=== PATIENT | female | born 1955 | race Caucasian/White ===

== ENCOUNTER 2019-08-26 07:09 | Emergency (ER) | payer BC, SELFPAY ==
[2019-08-26] VITALS (7 sets, daily range): BP systolic 104–152; BP diastolic 52–79; PULSE 63–85; RESP 16–22; TEMP 36.6; O2SAT 96–99
--- NOTE | ~2019-08-26 | XR_ITS ---
EXAMINATION: XR shoulder LT min 2V DATE: 08/26/2019 08:06 INDICATION: Left shoulder pain. Fall. TECHNIQUE: 5 views of left shoulder were obtained. COMPARISON: None. FINDINGS: Bone alignment is normal. No fracture. Glenohumeral joint is normal. There is mild acromioc lavicular joint osteoarthritis. IMPRESSION: 1. Mild left acromioclavicular joint osteoarthritis. Reviewed, dictated and finalized at location A. AND YARD SUPERVISOR
--- NOTE | ~2019-08-26 | CT_ITS ---
EXAMINATION: CT cervical spine wo con DATE: 08/26/2019 07:53 INDICATION: Neck pain. Head injury. TECHNIQUE: Computed tomography (CT) of the cervical spine was performed without intravenous contrast. Automated exposure control and iterative reconstruction technique were employed. The dose-length pro duct was 418.78 mGy-cm. COMPARISON: None FINDINGS: There is 10 degrees dextroscoliosis of cervicothoracic spine. There is 2 mm anterolisthesis of C4 on C5, 2 mm retrolisthesis of C5 on C6 and C6 on C7, and 2 mm anterolisthesis of C7 on T1. [place] tebral body heights are normal. There is severely decreased disc height at C5-C6 and C6-C7. The follo wing disc levels are specifically discussed: C2-C3 through C4-C5: There is no uncovertebral joint osteoarthritis. There is no facet joint osteoart hritis. There is no neural foraminal stenosis. There is no central canal stenosis. C5-C6: There is severe bilateral uncovertebral joint osteoarthritis. There is mild bilateral facet nahum int osteoarthritis. There is mild right and moderate left neural foraminal stenosis. There is mild ce ntral canal stenosis. C6-C7: There is severe bilateral uncovertebral joint osteoarthritis. There is mild bilateral facet nahum int osteoarthritis. There is mild right and moderate left neural foraminal stenosis. There is mild ce ntral canal stenosis. C7-T1: There is no uncovertebral joint osteoarthritis. There is severe bilateral facet joint osteoart hritis. There is mild right and moderate left neural foraminal stenosis. There is no central canal st enosis. IMPRESSION: 1. No fracture. 2. Severe cervical spondylosis. Reviewed, dictated and finalized at location A. TER HELPER
--- NOTE | ~2019-08-26 | CT_ITS ---
EXAMINATION: CT brain wo con DATE: 08/26/2019 07:54 INDICATION: Head injury. Neck pain. TECHNIQUE: Computed tomography (CT) of the head was performed without intravenous contrast. The mA wa s adjusted according to patient size. Iterative reconstruction technique was employed. The dose-lengt h product was 605.33 mGy-cm. COMPARISON: Head CT 09/01/2007 FINDINGS: There is no intracranial hemorrhage, acute infarction, or abnormal intracranial mass lesion . The ventricles are normal in size. The orbits are normal. The mastoid air cells are normal. The par anasal sinuses are clear. IMPRESSION: 1. Normal brain. Reviewed, dictated and finalized at location A. ICIAN SURGEON IMPRESSION: 1. Normal brain.
--- NOTE | 2019-08-26 07:28 | ECG_ITS ---
Measurements Intervals [place] Rate: 82 P: 7 OK: 181 QRS: -19 QRSD: 76 T: -7 QT: 353 QTc: 413 Interpretive Statements SINUS RHYTHM LOW QRS VOLTAGE IN PRECORDIAL LEADS POOR R WAVE PROGRESSION, CONSIDER ANTERIOR INFARCT BORDERLINE ST-T WAVE ABNORMALITY- INFERIOR LEADS BASELINE ARTIFACT- I, II, III, AVL, AVF, V4-V6 ABNORMAL ECG Electronically Signed On 08-26-2019 10:02:39 HARBORMASTER by Rene Rojas D.O.
--- NOTE | 2019-08-26 07:30 | ED.SYNCOPE ---
HPI - Syncope General Chief Complaint: Weakness Stated Complaint: Syncope Time Seen by Provider: 08/26/19 07:19 Source: patient Mode of arrival: ambulatory Limitations: no limitations History of Present Illness HPI narrative: Patient is a 64-year-old female who presents to the emergency department with complaint of syncopal episode. Patient reports onset of diarrhea at 4 AM yesterday. Patient has had multiple episodes of diarrhea. She has felt nauseous and vomited one time. Patient has had 2 syncopal episodes while sitting on the toilet having diarrhea. First episode occurred at 11 PM last night. The second episode occurred at 530 this morning. Patient reports waking up on the bathroom floor after having been sitting on the toilet having diarrhea. Patient has not been drinking much fluids since she developed the diarrhea. Patient did not feel she could navigate well enough to get to the kitchen to get herself something to drink in her kitchen is currently being remodeled and has no light fixture currently. Patient's was at work until 630 this morning and there was no one else at home to assist her. Patient reports injury to her left face, neck, and left shoulder during her second syncopal episode. She is complaining of pain along the left cheekbone, neck, and left shoulder. Patient has had some cramping with her diarrhea but is denying any significant abdominal pain. Patient denies any upper respiratory symptoms or fever. complaint: loss of consciousness Onset (ago): hour(s) Witnessed: No Context: other (On toilet with diarrhea) Injuries sustained associated with event: neck, face and LUE (shoulder) Related Data Allergies Allergy/AdvReac Type Severity Reaction Status Date / Time lisinopril Allergy Unknown Verified 03/08/14 02:38 metformin Allergy Unknown Verified 02/07/18 16:29 Review of Systems Review of Systems: All systems reviewed & are unremarkable except as noted in HPI and below Constitutional: Constitutional: Denies fever(s) and Reports weakness ENT: Denies nasal congestion and Denies sore throat Respiratory: Respiratory: Denies cough and Denies dyspnea Gastrointestinal: Gastrointestinal: Reports abdominal pain, Reports diarrhea, Reports nausea and Reports vomiting Neurologic: Reports dizziness, Reports syncope and Reports headache(s) (mild) [facility] Past Medical History Medical History (Updated 08/26/19 @ 11:31 by Ymuiko Collins MD) Allergic rhinitis Diabetes mellitus Hyperlipidemia Hypertension Surgical History Surgical History (Updated 08/26/19 @ 07:46 by Yumiko Collins MD) History of section History of cholecystectomy History of D&C History of hysterectomy Family History Family History (Updated 04/23/13 @ 15:35 by DOCTOR UNKNOWN) Other Asthma Cerebrovascular accident Depression Diabetes mellitus Family history of alcoholism Family history of anemia Family history of arthritis Family history of cardiovascular disease Family history of cataracts Family history of glaucoma Family history of hearing loss Family history of mental disorder Family history of migraine headaches Family history of obesity Family history of osteoporosis Hypertension Social History Social History Smoking status: Never smoker Alcohol intake: current Gender identity (if verbalized by the patient): Female Exam Const: General: cooperative, no acute distress and alert Nutritional Appearance: obese Orientation/consciousness: patient oriented x3 Limitations: no limitations HENMT: Head images: 1. Minor contusion Mouth: Yes lip normal and Yes moist mucous membranes Resp: Effort & Inspection: normal respiratory effort Auscultation: clear to auscultation bilaterally Cardio: Rate: regular rate Rhythm: regular rhythm GI: GI Palp: Yes Soft to palpation and No Tenderness to palpation present (GI) Auscultation: normal bowel sounds Back/Spine/Pe
[2019-08-26 07:45] LABS: Basophils Absolute Auto 0.1 K/mm3 (0.0-0.1); Basophils Percent Auto 0.4 % (0.2-1.2); Eosinophils Absolute Auto 0.3 K/mm3 (0-0.3); Eosinophils Percent Auto 1.7 % (0-4.4); Hematocrit 46.8 % (37.0-47.0); Hemoglobin 15.1 g/dL (12.0-15.0); Immature Granulocyte Absolute 0.03 K/mm3 (0.00-0.031); Immature Granulocyte Percent A 0.2 % (0-0.5); Lymphocytes Absolute Auto 2.93 K/mm3 (0.9-3.2); Lymphocytes Percent Auto 18.8 % (18.3-44.2); Mean Corpuscular HGB Conc 32.3 g/dl (32-36); Mean Platelet Volume 9.2 fl (7.4-10.4); Monocytes Absolute Auto 0.9 K/mm3 (0.1-0.6); Monocytes Percent Auto 5.5 % (2.6-8.5); Neutrophils Absolute Auto 11.5 K/mm3 (1.3-6.7); Neutrophils Percent Auto 73.4 % (45.5-73.1); Platelet Count Result 298 k/mm3 (150-375); Red Cell Distribution Width 13.5 % (11.5-14.5); White Blood Count 15.6 K/mm3 (4.5-10.0)
[2019-08-26 08:03] LABS: Alanine Aminotransferase 20 U/L (4-35); Albumin Level 4.3 g/dL (3.5-5.1); Alkaline Phosphatase 61 U/L (38-126); Aspartate Amino Transferase 23 U/L (14-36); Bilirubin,Total 0.6 mg/dL (0.2-1.3); Blood Urea Nitrogen 15 mg/dL (7-17); Calcium 9.4 mg/dL (8.4-10.2); Carbon Dioxide 20 mmol/L (22-30); Chloride 103 mmol/L (98-107); Estimated CRCL calculation 71 ml/min; Estimated Glomerular Filt Rate > 60; Glucose 189 mg/dL (65-105); Phosphorus 2.5 mg/dL (2.5-4.5); Potassium 4.1 mmol/L (3.4-5.0); Sodium 135 mmol/L (137-145)
[2019-08-26 08:08] LABS: Glucose Point of Care 169 (65-105)
[2019-08-26 08:08] LABS: Magnesium 2.1 mg/dL (1.6-2.3)
[2019-08-26] MEDS: LACTATED RINGERS 1,000 ML 999 ML IV CONT (08:09)
--- NOTE | 2019-08-26 08:45 | PC.NURSE ---
Lab unreceived urine due to not enough specimen. EDP notified.
[2019-08-26 09:59] LABS: Add Urine Microscopic? NO; Appearance Urine Clear (Clear); Bilirubin Urine Negative (Negative); Blood Urine Negative (Negative); Color Urine Yellow (Yellow); Glucose Urine UA Negative (Negative); Ketones Urine Negative (Negative); Leukocyte Esterase Ur Negative LEU/UL (Negative); Nitrate Urine Negative (Negative); Protein Urine Negative (Negative); Specific Grav Ur 1.016 (1.001-1.035); Urobilinogen Urine Negative mg/dL (<2.0)
== END 2019-08-26 11:56 | disposition home or self-care (01) ==
PROVIDERS: Emergency Provider Emergency Medicine; PCP Family Medicine
DX: K52.9 Noninfective gastroenteritis and colitis, unspecified (principal); E86.0 Dehydration; R55 Syncope and collapse; E11.9 Type 2 diabetes mellitus without complications; E78.5 Hyperlipidemia, unspecified; I10 Essential (primary) hypertension; M47.812 Spondylosis without myelopathy or radiculopathy, cervical region; M19.012 Primary osteoarthritis, left shoulder
CPT/HCPCS: 36415; 70450; 72125; 73030; 80053; 81003; 82948; 83735; 84100; 85025; 87804; 93005; 96360; 99284; J7120; L0140

== ENCOUNTER 2020-06-29 16:27 | Outpatient (CLI) | payer BC, SELFPAY ==
--- NOTE | ~2020-06-29 | MM_ITS ---
EXAMINATION: MM screening [facility] BI w gricelda HISTORY: Screening TECHNIQUE: Craniocaudal and mediolateral oblique 3-D tomosynthesis images were obtained and synthetic 2-D images were generated. CAD analysis was submitted and interpreted. COMPARISON: Comparison to multiple prior studies sequentially, with oldest reviewed study dated 07/2011. BREAST PARENCHYMAL COMPOSITION: There are scattered areas of fibroglandular density. FINDINGS: There is no evidence of suspicious mass, calcification, or architectural distortion to sugg est malignancy in either breast. There has been no suspicious interval change. IMPRESSION: 1. No mammographic evidence of malignancy. 2. Recommend routine screening mammography in one year. BI-RADS Category 1: Negative Reviewed, dictated and finalized at location A. ING AND REFRIGERATION INSPECTOR
== END 2020-06-29 16:28 | disposition home or self-care (01) ==
LOC: ANHIMG 16:29
PROVIDERS: PCP Family Medicine; Visit Provider Family Medicine
DX: Z12.31 Encounter for screening mammogram for malignant neoplasm of breast (principal)
CPT/HCPCS: 77063; 77067

== ENCOUNTER → 2020-10-11 10:17 | Outpatient (CLI) | payer BC, SELFPAY ==
--- NOTE | ~2020-10-11 | XR_ITS ---
XR knee RT min 4V 10/11/2020 10:43 Indication: Right knee pain Procedure: 5 views right knee Comparison: 07/31/2008 Findings: There is mild osteoarthritis of the right knee. No fracture or traumatic malalignment. No s ignificant joint effusion. There is a lucency at the medial femoral condyle,, consistent with small o steochondral defect. Impression: 1: Mild osteoarthritis of the right knee with small osteochondral defect medial femoral condyle. Reviewed, dictated and finalized at location A. Impression: 1: Mild osteoarthritis of the right knee with small osteochondral defect medial femoral condyle.
== END ==
PROVIDERS: PCP Physician Assistant; Visit Provider Physician Assistant
DX: M17.11 Unilateral primary osteoarthritis, right knee (principal)
CPT/HCPCS: 73564

== ENCOUNTER 2021-01-23 10:46 | Emergency (ER) | payer BC, SELFPAY ==
--- NOTE | ~2021-01-23 | CT_ITS ---
EXAMINATION: CT brain wo con INDICATION: Diplopia and headache COMPARISON: 08/26/2019 TECHNIQUE: Standard unenhanced head CT. The dose-length product (DLP) was 605.33 mGy-cm. The mA was a djusted according to patient size. Iterative reconstruction technique was employed. FINDINGS: There is no acute intraparenchymal hemorrhage. No evidence of mass lesion. No evidence of a cute infarction. There is mild periventricular and subcortical hypodensity probably related to small vessel ischemic disease. There is mild prominence of the sulci and ventricles related to cerebral atr ophy. Intracranial calcified cerebral atherosclerosis is noted. There are no extra-axial collections. There is no mass effect or midline shift. The orbits and soft tissues are unremarkable. The visualiz ed sinuses and mastoid air cells are well aerated. IMPRESSION: 1. No acute intracranial abnormality. 2. Age related findings. Reviewed, dictated and finalized at location A.
[2021-01-23 11:29] VITALS: BP 143/70; PULSE 71; RESP 18; TEMP 36.9; O2SAT 99
--- NOTE | 2021-01-23 12:17 | ED.GENADULT ---
HPI - General Adult General Chief complaint: Headache Stated complaint: Head Ache/Double Vision Time Seen by Provider: 01/23/21 12:11 Source: patient Mode of arrival: ambulatory Limitations: no limitations History of Present Illness HPI narrative: Patient is here for evaluation of headache. Headache has been happening for the last 2 weeks. She states it wakes her at night. Currently though the pain is primarily in the left eye left jehovah's witness radiate to her left jaw. She denies any fever. But she has had some double vision when using her binocular vision only. She states that she has not had a headache in 20 years, but she did have a stroke 7 to 10 years ago. She was concerned that it was caused by her glasses, she did have those adjusted with no relief. Onset (ago): week(s) Location: head Radiation: other (left jaw) Severity: moderate Quality: sharp Pain Consistency: constant Relieving factors: none Exacerbating factors: other (light) Associated symptoms: denies other symptoms Treatments prior to arrival: NSAID Related Data Home Medications Medication Instructions Recorded Confirmed B-complex with vitamin C 1 tablet PO DAILY 04/19/20 10/26/20 aspirin 81 mg tablet,delayed 81 mg PO DAILY 04/19/20 10/26/20 release cyanocobalamin (vitamin B-12) 1,000 mcg PO DAILY 04/19/20 10/26/20 1,000 mcg capsule irbesartan 300 mg tablet 300 mg PO DAILY 04/19/20 10/26/20 levothyroxine 125 mcg capsule 125 mcg PO DAILY 04/19/20 10/26/20 linaclotide 72 mcg capsule 72 mcg PO QAM 04/19/20 10/26/20 dulaglutide 1.5 mg/0.5 mL 1.5 mg SUBCUT WEEKLY 10/11/20 10/26/20 subcutaneous pen injector insulin lispro 100 unit/mL 5.5 unit SUBCUT QHS 10/18/20 10/26/20 subcutaneous half-unit pen Allergies Allergy/AdvReac Type Severity Reaction Status Date / Time metformin Allergy Unknown Rash Verified 01/23/21 12:03 poison carlitos extract Allergy Unknown Rash Verified 01/23/21 12:03 Review of Systems Review of Systems: All systems reviewed & are unremarkable except as noted in HPI and below PMFSH Past Medical History Medical History Allergic rhinitis Allergic rhinitis BMI 40.0-44.9, adult Constipation Diabetes mellitus Gastroparesis Hyperlipidemia Hyperlipidemia with target LDL less than 100 Hypertension Hypothyroidism (acquired) Neuropathy Pelvic floor dysfunction Primary hypertension Situational mixed anxiety and depressive disorder Type 2 diabetes mellitus with diabetic neuropathy, with long-term current use of insulin Surgical History Surgical History History of section (~1977) History of cholecystectomy (~1991) History of D&C (~1976) History of hysterectomy History of tubal ligation (~1979) Family History Family History Other Asthma Cerebrovascular accident Depression Diabetes mellitus Family history of alcoholism Family history of anemia Family history of arthritis Family history of cardiovascular disease Family history of cataracts Family history of glaucoma Family history of hearing loss Family history of mental disorder Family history of migraine headaches Family history of obesity Family history of osteoporosis Hypertension Social History Social History Smoking status: Never smoker Second hand tobacco smoke exposure: Yes Alcohol intake: current Substance use: never Substance use type: does not use Additional living arrangements comments: Significant other. Gender identity (if verbalized by the patient): Female Exam Const: General: healthy appearing, no acute distress and alert Orientation/consciousness: patient oriented x3 HENMT: Head: normal to inspection and Temporal artery tenderness present (no cording) left temporal Face and sinus: sinuses non
[2021-01-23 13:02] LABS: Basophils Absolute Auto 0.1 K/mm3 (0.0-0.1); Basophils Percent Auto 0.8 % (0.2-1.2); Eosinophils Absolute Auto 0.8 K/mm3 (0-0.3); Eosinophils Percent Auto 7.2 % (0-4.4); Hemoglobin 13.5 g/dL (12.0-15.0); Immature Granulocyte Absolute 0.02 K/mm3 (0.00-0.031); Immature Granulocyte Percent A 0.2 % (0-0.5); Lymphocytes Absolute Auto 3.64 K/mm3 (0.9-3.2); Lymphocytes Percent Auto 31.8 % (18.3-44.2); Mean Corpuscular HGB Conc 32.1 g/dl (32-36); Mean Corpuscular Hemoglobin 30.3 pg (26-34); Mean Corpuscular Volume 94.2 fl (80-100); Mean Platelet Volume 9.2 fl (7.4-10.4); Monocytes Absolute Auto 0.8 K/mm3 (0.1-0.6); Neutrophils Absolute Auto 6.1 K/mm3 (1.3-6.7); Platelet Count Result 264 k/mm3 (150-375); Red Blood Count 4.46 M/mm3 (4.2-5.4); White Blood Count 11.5 K/mm3 (4.5-10.0)
--- NOTE | 2021-01-23 15:05 | ECG_ITS ---
Measurements Intervals [place] Rate: 67 P: 7 DC: 185 QRS: -18 QRSD: 99 T: 1 QT: 407 QTc: 431 Interpretive Statements SINUS RHYTHM LOW QRS VOLTAGE IN PRECORDIAL LEADS POOR R WAVE PROGRESSION, ANTERIOR LEADS BORDERLINE T WAVE ABNORMALITY- INFERIOR LEADS BORDERLINE ECG Electronically Signed On 01-23-2021 17:35:10 CDT by Rene Rojas D.O.
[2021-01-23 15:32] VITALS: BP 125/64; PULSE 67; RESP 18; O2SAT 98
[2021-01-23 16:25] VITALS: BP 125/64; PULSE 72; RESP 16; O2SAT 96
--- NOTE | 2021-01-23 16:25 | ED.GENADULT ---
HPI - General Adult General Chief complaint: Headache Stated complaint: Head Ache/Double Vision Time Seen by Provider: 01/23/21 12:11 Source: patient Mode of arrival: ambulatory Limitations: no limitations History of Present Illness HPI narrative: Pt is here for evaluation of left sided headache and vision changes. She is concerned for stroke as she had one ~ 10 yrs ago. She states she has not had a headache in many yrs. She is having double vision when she looks to the left. The pain in her left quaker radiates to her jaw. Denies fever. Location: head Quality: sharp Relieving factors: none Exacerbating factors: other (light) Associated symptoms: denies other symptoms Treatments prior to arrival: NSAID Related Data Home Medications Medication Instructions Recorded Confirmed B-complex with vitamin C 1 tablet PO DAILY 04/19/20 10/26/20 aspirin 81 mg tablet,delayed 81 mg PO DAILY 04/19/20 10/26/20 release cyanocobalamin (vitamin B-12) 1,000 mcg PO DAILY 04/19/20 10/26/20 1,000 mcg capsule irbesartan 300 mg tablet 300 mg PO DAILY 04/19/20 10/26/20 levothyroxine 125 mcg capsule 125 mcg PO DAILY 04/19/20 10/26/20 linaclotide 72 mcg capsule 72 mcg PO QAM 04/19/20 10/26/20 dulaglutide 1.5 mg/0.5 mL 1.5 mg SUBCUT WEEKLY 10/11/20 10/26/20 subcutaneous pen injector insulin lispro 100 unit/mL 5.5 unit SUBCUT QHS 10/18/20 10/26/20 subcutaneous half-unit pen Allergies Allergy/AdvReac Type Severity Reaction Status Date / Time metformin Allergy Unknown Rash Verified 01/23/21 12:03 poison carlitos extract Allergy Unknown Rash Verified 01/23/21 12:03 Review of Systems Review of Systems: All systems reviewed & are unremarkable except as noted in HPI and below PMFSH Past Medical History Medical History Allergic rhinitis Allergic rhinitis BMI 40.0-44.9, adult Constipation Diabetes mellitus Gastroparesis Hyperlipidemia Hyperlipidemia with target LDL less than 100 Hypertension Hypothyroidism (acquired) Neuropathy Pelvic floor dysfunction Primary hypertension Situational mixed anxiety and depressive disorder Type 2 diabetes mellitus with diabetic neuropathy, with long-term current use of insulin Surgical History Surgical History History of section (~1977) History of cholecystectomy (~1991) History of D&C (~1976) History of hysterectomy History of tubal ligation (~1979) Family History Family History Other Asthma Cerebrovascular accident Depression Diabetes mellitus Family history of alcoholism Family history of anemia Family history of arthritis Family history of cardiovascular disease Family history of cataracts Family history of glaucoma Family history of hearing loss Family history of mental disorder Family history of migraine headaches Family history of obesity Family history of osteoporosis Hypertension Social History Social History Smoking status: Never smoker Second hand tobacco smoke exposure: Yes Alcohol intake: current Substance use: never Substance use type: does not use Additional living arrangements comments: Significant other. Gender identity (if verbalized by the patient): Female Exam Const: General: healthy appearing, no acute distress and alert Orientation/consciousness: patient oriented x3 HENMT: Head: normal to inspection and Temporal artery tenderness present (no cording.) left temporal Ears: TM's normal bilaterally Face and sinus: normal facial exam and sinuses nontender Eyes: Visual Padgett: normal visual padgett by confrontation Conjunctivae: conjunctivae normal Pupils: Equal, round and reactive pupils present EOM: EOMs intact bilaterally Resp: Effort & Inspection: normal respiratory effort Auscultation: clear to auscul
== END 2021-01-23 16:26 | disposition home or self-care (01) ==
PROVIDERS: Physician Assistant; Emergency Provider Emergency Medicine; PCP Physician Assistant
DX: R51.9 Headache, unspecified (principal); H53.2 Diplopia; I10 Essential (primary) hypertension; E78.5 Hyperlipidemia, unspecified; E11.9 Type 2 diabetes mellitus without complications; E03.9 Hypothyroidism, unspecified; Z79.82 Long term (current) use of aspirin; Z79.4 Long term (current) use of insulin
CPT/HCPCS: 36415; 70450; 85025; 86140; 93005; 99284

== ENCOUNTER 2021-01-24 11:04 | Outpatient (CLI) | payer BC, SELFPAY ==
--- NOTE | ~2021-01-24 | MR_ITS ---
EXAMINATION: MR brain/brain stem wo/w con DATE: 01/24/2021 13:08 INDICATION: Diplopia. TECHNIQUE: Magnetic resonance imaging (MRI) of the brain and brainstem was performed without and with 18 mL MultiHance intravenous contrast. Sequences included sagittal and axial T1-weighted FSE, axial diffusion-weighted FS EPI, axial T2*-weighted GRE, axial T2-weighted FLAIR Propeller, and axial T2-we ighted Propeller. Postcontrast sequences included axial, sagittal, and coronal T1-weighted FSE. Appar ent diffusion coefficient (ADC) maps were created. COMPARISON: Head CT 01/23/2021 FINDINGS: There are scattered areas of nonspecific increased T2-weighted signal intensity in the cere bral white matter, which is within normal limits for the patient's age. There is no intracranial hemo rrhage, acute infarction, or abnormal intracranial mass lesion. The ventricles are normal in size. Th e paranasal sinuses are clear. The orbits are normal. The mastoid air cells are normal. IMPRESSION: 1. Normal aging brain. Reviewed, dictated and finalized at location A. IMPRESSION: 1. Normal aging brain.
[2021-01-24 12:38] LABS: Estimated Glomerular Filt Rate > 60
== END 2021-01-24 11:05 | disposition home or self-care (01) ==
PROVIDERS: PCP Physician Assistant; Visit Provider Family Medicine
DX: H53.2 Diplopia (principal); Z86.73 Personal history of transient ischemic attack (TIA), and cerebral infarction without residual deficits
CPT/HCPCS: 70553; A9577

== ENCOUNTER → 2021-03-02 16:29 | Outpatient (CLI) | payer BC, SELFPAY ==
--- NOTE | ~2021-03-02 | XR_ITS ---
EXAMINATION: HAND-KAY ARTHRITIS 3+VIEWS DATE: 03/02/2021 16:54 INDICATION: Polyarthralgia. Rheumatoid arthritis. TECHNIQUE: Posteroanterior, lateral, and oblique views of the left and of the right hands as well as a ballcatchers view of both hands were obtained. COMPARISON: None. FINDINGS: Bone alignment is normal. Polyarticular osteoarthritis, moderate severity at the right pisotriquetral and bilateral first carpometacarpal, and second and third distal interphalangeal joints and mild at the bilateral first metacarpophalangeal and remaining interphalangeal joints. There is erosion at the distal margin of the left pisiform. Soft tissues are unremarkable. IMPRESSION: 1. Typical distribution of relatively symmetric mild to moderate polyarticular osteoarthritis of both hands 2. Single erosion at the distal margin of the left pisiform which could be related to reported rheuma toid arthritis or other inflammatory or crystalline arthropathy. Reviewed, dictated and finalized at location A. IMPRESSION: 1. Typical distribution of relatively symmetric mild to moderate polyarticular osteoarthritis of both hands 2. Single erosion at the distal margin of the left pisiform which could be rela dolores to reported rheumatoid arthritis or other inflammatory or crystalline arthr opathy.
--- NOTE | ~2021-03-02 | XR_ITS ---
EXAMINATION: XR foot LT min 3V, XR foot RT min 3V DATE: 03/02/2021 16:54 INDICATION: Unspecified joint pain in the bilateral feet. TECHNIQUE: 1. Dorsoplantar, two oblique and lateral views of the left foot were obtained. 2. Dorsoplantar, two oblique and lateral views of the right foot were obtained. COMPARISON: None. FINDINGS: Bone alignment is normal at the bilateral feet. No fractures. Mild osteoarthritis at the bilateral fi rst metatarsophalangeal and naviculocuneiform joints as well as multiple bilateral tarsometatarsal an d interphalangeal joints. Subarticular lucency with thin sclerotic margins at the proximal articular surface of the right medial cuneiform without evident underlying cortical disruption and favor degene rative subchondral cyst over a chronic erosion. Small bilateral plantar calcaneal spurs. Soft tissues are unremarkable. IMPRESSION: 1. Mild polyarticular osteoarthritis at the bilateral mid and forefeet. Reviewed, dictated and finalized at location A. IMPRESSION: 1. Mild polyarticular osteoarthritis at the bilateral mid and forefeet.
== END ==
PROVIDERS: PCP Family Medicine
DX: M25.50 Pain in unspecified joint (principal); M89.49 Other hypertrophic osteoarthropathy, multiple sites
CPT/HCPCS: 73130; 73630

== ENCOUNTER → 2021-03-20 13:13 | Outpatient (CLI) | payer BC, SELFPAY ==
--- NOTE | ~2021-03-20 | MR_ITS ---
EXAMINATION: MR knee RT wo con DATE: 03/20/2021 13:58 INDICATION: Generalized right knee pain and swelling with difficulty walking TECHNIQUE: Magnetic resonance imaging (MRI) of the right knee was performed without intravenous contr ast. Sequences included coronal PD-weighted FSE, coronal PD-weighted FS FSE, sagittal T2-weighted FS E, sagittal PD-weighted FS FSE and axial PD weighted fat saturated FSE. COMPARISON: Right knee radiographs dated 10/11/2020 FINDINGS: Medial compartment: The medial meniscus appears small. There is increased signal which contacts the superior articular bangura rface at the posterior horn and body of the meniscus consistent with tear which is of indeterminate m orphology. Extensive deep chondral ulceration with underlying cortical irregularity and subarticular cystic changes extending from the anterior to the posterior weightbearing medial femoral condyle. Add itional partial thickness cartilage loss and oblique full-thickness chondral fissure with underlying subarticular edema at the anterior aspect of the medial tibial plateau. Lateral compartment: Lateral meniscus is normal. Articular cartilage is normal. Patellofemoral compartment: Deep chondral ulceration with cortical irregularity and subarticular cystic changes at the lateral pa tellar facet and apical ridge. Shallow chondral ulceration with subtle underlying cortical irregulari ty at the caudal aspect of the medial trochlea. Ligaments and tendons: Anterior and posterior cruciate ligaments are normal. The medial collateral ligament is normal. There is mild thickening and increased signal at the proximal fibular collateral ligament without surround ing edema consistent with mild scarring related to chronic sprain. There are bands of magic angle art ifact extending across the normal patellar tendon. Quadriceps tendon is normal. The visualized medial and lateral hamstring tendons as well as the iliotibial band are normal. Fluid: Small right knee joint effusion. There is a suprapatellar plical band. No loose osteochondral bodies identified. Osseous/other: Bone alignment is normal. No fracture or pathologic marrow replacing process. IMPRESSION: 1. Tear of indeterminate morphology at the body and posterior horn of the medial meniscus. 2. Moderate medial and mild to moderate patellofemoral osteoarthritis with large regions of high-grad e chondromalacia in both compartments. 3. Small right knee joint effusion. Reviewed, dictated and finalized at location A. IMPRESSION: 1. Tear of indeterminate morphology at the body and posterior horn of the media l meniscus. 2. Moderate medial and mild to moderate patellofemoral osteoarthritis with larg e regions of high-grade chondromalacia in both compartments. 3. Small right knee joint effusion.
== END ==
PROVIDERS: PCP Family Medicine; Visit Provider Orthopaedic Surgery
DX: S83.241A Other tear of medial meniscus, current injury, right knee, initial encounter (principal); X58.XXXA Exposure to other specified factors, initial encounter
CPT/HCPCS: 73721

== ENCOUNTER 2021-05-03 11:33 | Outpatient (CLI) | payer BC, SELFPAY ==
[2021-05-03 12:37] LABS: Anion Gap 7 mmol/L (8-16); Blood Urea Nitrogen 13 mg/dL (7-17); Calcium 9.6 mg/dL (8.4-10.2); Carbon Dioxide 28 mmol/L (22-30); Chloride 105 mmol/L (98-107); Estimated Glomerular Filt Rate > 60; Glucose 235 mg/dL (65-110); Potassium 4.2 mmol/L (3.4-5.0); Sodium 140 mmol/L (137-145)
== END 2021-05-03 11:34 | disposition home or self-care (01) ==
LOC: ANHSURGERY 11:36
PROVIDERS: Anesthesiology; PCP Family Medicine; Visit Provider Orthopaedic Surgery
DX: Z01.818 Encounter for other preprocedural examination (principal); E11.9 Type 2 diabetes mellitus without complications
CPT/HCPCS: 36415; 80048

== ENCOUNTER 2021-05-05 00:36 | Day surgery (SDC) | payer BC, SELFPAY ==
[2021-04-27 12:56] VITALS: BMI 41.3
--- NOTE | 2021-05-04 08:32 | WPDANESEPPF ---
Anes - Initial Pre Proc Eval Procedure: Operation Date: 05/05/21 10:30 Proposed Procedures p Right Knee Arthroscopy, Partial Medial Meniscectomy - Benny Harrell MD <Nathaniel Milian MD - Last Filed: 05/05/21 12:02> Date/Time: 05/04/21 08:32 <Nathaniel Milian MD - Last Filed: 05/05/21 12:02> Surgeon: Benny Harrell MD <Nathaniel Milian MD - Last Filed: 05/05/21 12:02> Pre Op Diagnosis: Tear Rt Medial Meniscus <Nathaniel Milian MD - Last Filed: 05/05/21 12:02> Patient Data Age: 66 Gender: F Height: 1.52 m Weight: 96 kg <Nathaniel Milian MD - Last Filed: 05/05/21 12:02> Allergies Allergy/AdvReac Type Severity Reaction Status Date / Time metformin Allergy Unknown Rash Verified 05/05/21 09:05 poison carlitos extract Allergy Unknown Rash Verified 05/05/21 09:05 <Nathaniel Milian MD - Last Filed: 05/05/21 12:02> Home Medications Medication Instructions Recorded Confirmed Type aspirin 81 mg tablet,delayed 81 mg PO DAILY 04/19/20 05/05/21 History release cyanocobalamin (vitamin B-12) 1,000 mcg PO DAILY 04/19/20 05/05/21 History 1,000 mcg capsule montelukast 10 mg tablet 10 mg PO DAILY #90 tablet 04/19/20 05/05/21 Rx insulin lispro 100 unit/mL 5.5 unit SUBCUT QHS 10/18/20 05/05/21 History subcutaneous half-unit pen levothyroxine 112 mcg capsule 112 mcg PO QAM 01/25/21 05/05/21 History linaclotide 145 mcg capsule 145 mcg PO QAM 01/25/21 05/05/21 History vitamin B complex 1 tablet PO DAILY 01/25/21 05/05/21 History cholecalciferol (vitamin D3) 1 mcg PO WEEKLY 04/27/21 05/05/21 History gabapentin See Rx Instructions .ROUTE .COMPLEX 04/27/21 05/05/21 History prasterone (dhea) [DHEA] 50 mg PO DAILY 04/27/21 05/05/21 History semaglutide [Ozempic] 0.5 mg SUBCUT WEEKLY 04/27/21 05/05/21 History simvastatin 20 mg PO QAM 04/27/21 05/05/21 History irbesartan 300 mg tablet 300 mg PO QAM #90 tablet 05/04/21 05/05/21 Rx <Nathaniel Milian MD - Last Filed: 05/05/21 12:02> Patient hx anesthesia problems: none <Ricardo Bolden MD - Last Filed: 05/05/21 10:05> Family hx anesthesia problems: none <Ricardo Bolden MD - Last Filed: 05/05/21 10:05> Results Review: All pre-operative results and documents have been reviewed as part of the pre-operative evaluation. <Nathaniel Milian MD - Last Filed: 05/05/21 12:02> [facility] Past Medical History Medical History: Medical History Allergic rhinitis Allergic rhinitis BMI 40.0-44.9, adult Constipation Diabetes mellitus Gastroparesis H/O: CVA (cerebrovascular accident) Hyperlipidemia Hyperlipidemia with target LDL less than 100 Hypertension Hypothyroidism (acquired) Neuropathy Pelvic floor dysfunction Primary hypertension Situational mixed anxiety and depressive disorder Type 2 diabetes mellitus with diabetic neuropathy, with long-term current use of insulin <Nathaniel Milian MD - Last Filed: 05/05/21 12:02> Surgical History Surgical History: Surgical History History of section (~1977) History of cholecystectomy (~1991) History of D&C (~1976) History of hysterectomy History of tubal ligation (~1979) <Nathaniel Milian MD - Last Filed: 05/05/21 12:02> Family History Family History: Family History Other Asthma Cerebrovascular accident Depression Diabetes mellitus Family history of alcoholism Family history of anemia Family history of arthritis Family history of cardiovascular disease Family history of cataracts Family history of glaucoma Family history of hearing loss Family history of mental disorder Family history of migraine headaches Family history of obesity Family history of osteoporosis Hypertension <Nathaniel Milian MD - Last Filed: 05/05/21 12:02> Social His
[2021-05-05] VITALS (9 sets, daily range): BP systolic 126–146; BP diastolic 50–67; PULSE 54–72; RESP 13–22; TEMP 36.2–36.6; O2SAT 94–100
--- NOTE | 2021-05-05 07:44 | WPDHPUPDATE1 ---
History and Physical Update Update Date/Time: 05/05/21 07:44 History and Physical has been reviewed, including an updated exam of the patient. There are NO changes in the patient's condition. Risks, benefits, and alternatives have been discussed and questions answered. Patient agrees to proceed with procedure.
[2021-05-05] MEDS: LACTATED RINGERS 1,000 ML 30 ML IV CONT (09:25)
[2021-05-05] MEDS: ACETAMINOPHEN 500 MG TABLET 1000 MG PO (09:27)
[2021-05-05] MEDS: KETOROLAC 15 MG/ML VIAL (*BKC) IV PUSH (09:28)
[2021-05-05 09:33] LABS: Glucose Point of Care 137 mg/dl (65-105)
[2021-05-05] MEDS: ceFAZolin 2 GM/D5W 50 ML 2 GM/50 ML BAG IVPB (10:33)
[2021-05-05] MEDS: BUPIVACAINE HCL 0.5% PF 30 ML VIAL INFILTRATE (11:03)
[2021-05-05 11:42] LABS: Glucose Point of Care 152 mg/dl (65-105)
--- NOTE | 2021-05-05 16:30 | P.OP_ITS ---
Procedure Note - Detailed Date of Procedure 05/05/21 Pre-op Diagnosis Tear right Medial Meniscus Post-op Diagnosis same Procedure Performed Arthroscopic partial medial meniscectomy Surgeon Benny Harrell MD Anesthesia general Findings The medial compartment showed moderate early degenerative changes with grade 4 chondromalacia on the medial femur with delamination of the peripheral area. Mild grade 4 areas on the medial tibia. Extensive complex posterior horn medial meniscus tearing requiring subtotal meniscectomy. Mild synovitis in the knee noted. The radiofrequency probe was used to stabilize the remaining posterior meniscal cartilages well as the delaminating articular cartilage medially. The patellofemoral joint showed mild chondromalacia on the lateral compartment appeared fairly normal. Description of Procedure The patient was identified and the surgical site confirmed and signed in the preoperative holding area. Antibiotics were started per protocol. She was brought to the operative room and transferred to the OR table. A general anesthetic was administered. Supine position with the operative lower extremity position in the leg crockett after placement of a well padded tourniquet. The leg support was lowered and the contralateral limb was supported with a soft bolster. The knee was prepped and draped in the usual sterile fashion. A time- out was performed. The portal sites were marked and infiltrated with 0.5% Marcaine 20 mL. The limb was exsanguinated and the tourniquet inflated to 300 mL Hg. Standard inferolateral and inferomedial portals were established. Inflow was obtained with the saline pump. The camera was introduced. Diagnostic inspection of the joint was accomplished. The meniscus was debrided with the arthroscopic shaver and punches until stable. The radiofrequency probe was also used for further d?bridement. Gentle chondroplasty was performed on the medial femur primarily. The lateral compartment appeared benign. Minimal patellofemoral changes. The ACL was intact. The arthroscopic instruments were removed. The tourniquet released and wounds closed with subcutaneous 4-0 Monocryl absorbable suture. Steri strips and a sterile dressing were applied. A light elastic wrap was placed. The patient was extubated and brought to the recovery room in stable condition. Estimated Blood Loss 5 Drains No Complications No immediate complications Condition stable Disposition PACU
== END 2021-05-05 14:03 | disposition home or self-care (01) ==
PROVIDERS: PCP Family Medicine; Visit Provider Orthopaedic Surgery
PROC: (CPT 29870; principal; 2021-05-05 10:30)
DX: S83.231A Complex tear of medial meniscus, current injury, right knee, initial encounter (principal); S83.411A Sprain of medial collateral ligament of right knee, initial encounter; X50.0XXA Overexertion from strenuous movement or load, initial encounter; M22.41 Chondromalacia patellae, right knee; E11.43 Type 2 diabetes mellitus with diabetic autonomic (poly)neuropathy; K31.84 Gastroparesis; Z79.4 Long term (current) use of insulin; I10 Essential (primary) hypertension; E03.9 Hypothyroidism, unspecified; E11.42 Type 2 diabetes mellitus with diabetic polyneuropathy; E78.5 Hyperlipidemia, unspecified; F41.8 Other specified anxiety disorders; Z86.73 Personal history of transient ischemic attack (TIA), and cerebral infarction without residual deficits; E66.01 Morbid (severe) obesity due to excess calories; Z68.41 Body mass index [BMI] 40.0-44.9, adult
CPT/HCPCS: 29881; 36415; 80048; 82948; A9270; J0690; J1100; J1885; J2250; J2405; J2704; J3010; J7120

== ENCOUNTER 2021-07-10 07:41 | Outpatient (CLI) | payer BC, SELFPAY ==
--- NOTE | ~2021-07-10 | DEXA_ITS ---
Bone Density Report Name: [facility] Age: 66 Sex: Female Ethnicity: White Date of : 1955 Indication: postmenopausal; hysterectomy; Referring Provider: Sheyla Guillen Study: Bone densitometry was performed. Exam Date: July 10, 2021 Accession number: [id number] Bone Density: Region BMD T-score Z-score Classification AP Spine (L1-L4) 1.253 1.9 3.8 Normal Femoral Neck (Left) 0.823 -0.2 1.4 Normal Total Hip (Left) 1.148 1.7 3.0 Normal Total Hip Bilateral Avg 1.136 1.6 2.9 Normal Femoral Neck (Right) 0.906 0.5 2.2 Normal Total Hip (Right) 1.123 1.5 2.8 Normal World Health Organization criteria for BMD impression classify patients as: Normal (T-score at or above -1.0), Osteopenia (T-score between -1.0 and -2.5), or Osteoporosis (T-score at or below -2.5). 10-year Fracture Risk: FRAX not reported because: All T-scores for Spine Total, Hip Total, Femoral Neck at or above -1.0 Previous Exams: Region Exam Age BMD T-score BMD Change BMD Change Date g/cm2 vs Baseline vs Previous AP Spine(L1-L4) 07/10/2021 66 1.253 1.9 -0.023(-1.8%)# 0.030(2.5%)* 05/30/2018 63 1.222 1.6 -0.054(-4.2%)# 0.041(3.4%)* 09/09/2015 60 1.182 1.2 -0.094(-7.4%)# -0.044(-3.6%)# 04/25/2013 58 1.226 1.6 -0.050(-3.9%)# -0.020(-1.6%)# 01/13/2011 55 1.246 1.8 -0.030(-2.4%)* -0.030(-2.4%)* 09/27/2007 52 1.276 2.1 Total Hip(Left) 07/10/2021 66 1.148 1.7 -0.021(-1.8%)# 0.021(1.9%) 05/30/2018 63 1.127 1.5 -0.042(-3.6%)# -0.039(-3.4%)* 09/09/2015 60 1.167 1.8 -0.002(-0.2%)# 0.052(4.7%)# 04/25/2013 58 1.115 1.4 -0.055(-4.7%)# -0.086(-7.2%)# 01/13/2011 55 1.201 2.1 0.032(2.7%)* 0.032(2.7%)* 09/27/2007 52 1.169 1.9 Total Hip(Right) 07/10/2021 66 1.123 1.5 -0.032(-2.8%)# -0.015(-1.3%) 05/30/2018 63 1.139 1.6 -0.017(-1.5%)# 0.033(3.0%)* 09/09/2015 60 1.106 1.3 -0.050(-4.3%)# -0.015(-1.3%)# 04/25/2013 58 1.121 1.5 -0.035(-3.0%)# -0.042(-3.6%)# 01/13/2011 55 1.162 1.8 0.007(0.6%) 0.007(0.6%) 09/27/2007 52 1.155 1.7 *Denotes significance at 95% confidence level, LSC for AP Spine = 0.022 g/cm2, LSC for Total Hip = 0.027 g/cm2 Clinical Information Provided by Patient: Has used the following medications: Vitamin D, Calcium Has the following medical conditions: Hysterectomy Patient maximum height was 60 Menopause Age: 44 No regular weight bearing exercise Drinks caffeinated beverages Onset of m
--- NOTE | ~2021-07-10 | MM_ITS ---
EXAMINATION: MM screening joni BI w gricelda HISTORY: Screening mammogram, family history of breast cancer in her sister. TECHNIQUE: Craniocaudal and mediolateral oblique 3-D tomosynthesis images were obtained and synthetic 2-D images were generated. CAD analysis was submitted and interpreted. COMPARISON: 06/29/2020, 06/09/2019, 05/30/2018 BREAST PARENCHYMAL COMPOSITION: There are scattered areas of fibroglandular density. FINDINGS: RIGHT BREAST: There is no evidence of suspicious mass, calcification, or architectural distortion to suggest malignancy. There has been no significant interval change. LEFT BREAST: There is a possible mass in the subareolar aspect of the slightly outer breast. IMPRESSION: 1. Possible left breast mass. 2. Additional mammographic views and possible breast ultrasound are recommended. BI-RADS Category 0: Incomplete: Needs additional imaging evaluation. Reviewed, dictated and finalized at location A. ET LIGHT INSPECTOR IMPRESSION: 1. Possible left breast mass. 2. Additional mammographic views and possible breast ultrasound are recommended . BI-RADS Category 0: Incomplete: Needs additional imaging evaluation.
== END 2021-07-10 07:42 | disposition home or self-care (01) ==
LOC: ANHIMG 07:44
PROVIDERS: PCP Family Medicine; Visit Provider Physician Assistant
DX: Z12.31 Encounter for screening mammogram for malignant neoplasm of breast (principal); R92.8 Other abnormal and inconclusive findings on diagnostic imaging of breast; Z78.0 Asymptomatic menopausal state
CPT/HCPCS: 77063; 77067; 77080

== ENCOUNTER 2021-07-20 07:24 | Outpatient (CLI) | payer BC, SELFPAY ==
--- NOTE | ~2021-07-20 | MMUS_ITS ---
EXAMINATION: MM diagnostic joni LT w gricelda, US breast LT limited HISTORY: Follow-up left breast asymmetry TECHNIQUE: Additional 3-D tomosynthesis images of the left breast were performed and synthetic 2-D im ages were generated. CAD analysis was submitted and interpreted. High resolution Limited left breast ultrasound was performed. COMPARISON: Comparison to multiple prior studies sequentially, with oldest reviewed study dated 05/23. BREAST PARENCHYMAL COMPOSITION: Breast composed of scattered areas of fibroglandular density. FINDINGS: MAMMOGRAPHIC FINDINGS: Focal asymmetry in the left breast is less dense with spot compression views, although there is persi stent asymmetry superiorly on the spot MLO view. ULTRASOUND: Limited left breast ultrasound: At 12:00 near the nipple is an irregular shaped hypoechoic mass measu ring 4 x 2 x 2 mm without internal vascularity or posterior features. IMPRESSION: 1. Irregular shaped hypoechoic mass of the left breast at 12:00 near the nipple measuring 4 mm maximu m dimension. 2. Ultrasound-guided left breast biopsy recommended. BI-RADS category 4, suspicious findings. Reviewed, dictated and finalized at location A. PMENT OPERATOR INTERMODAL YARD IMPRESSION: 1. Irregular shaped hypoechoic mass of the left breast at 12:00 near the nipple measuring 4 mm maximum dimension. 2. Ultrasound-guided left breast biopsy recommended. BI-RADS category 4, suspicious findings.
== END 2021-07-20 07:25 | disposition home or self-care (01) ==
LOC: CHSIMG 07:26
PROVIDERS: PCP Family Medicine; Visit Provider Physician Assistant
DX: R92.8 Other abnormal and inconclusive findings on diagnostic imaging of breast (principal); N63.20 Unspecified lump in the left breast, unspecified quadrant
CPT/HCPCS: 76642; 77061; 77065; G0279

== ENCOUNTER 2021-09-08 14:23 | Outpatient (CLI) | payer BC, SELFPAY ==
--- NOTE | 2021-09-08 14:39 | ECG_ITS ---
Measurements Intervals [place] Rate: 67 P: 17 ME: 168 QRS: -18 QRSD: 88 T: 13 QT: 409 QTc: 434 Interpretive Statements SINUS RHYTHM DELAYED PRECORDIAL R/S TRANSITION LOW QRS VOLTAGE IN PRECORDIAL LEADS BORDERLINE ECG Electronically Signed On 09-08-2021 15:20:01 RULING MACHINE FEEDER by Rene Rojas D.O.
== END 2021-09-08 14:24 | disposition home or self-care (01) ==
LOC: ANHCARD 14:25
PROVIDERS: PCP Family Medicine; Visit Provider Family Medicine
DX: I10 Essential (primary) hypertension (principal); R94.31 Abnormal electrocardiogram [ECG] [EKG]
CPT/HCPCS: 93005

== ENCOUNTER 2021-09-15 11:16 | Outpatient (CLI) | payer BC, SELFPAY ==
[2021-09-15 12:33] LABS: Hematocrit 44.9 % (37.0-47.0); Hemoglobin 14.5 g/dL (12.0-15.0)
[2021-09-15 12:52] LABS: Alanine Aminotransferase 15 U/L (4-35); Albumin Level 4.1 g/dL (3.5-5.1); Alkaline Phosphatase 61 U/L (38-126); Anion Gap 10 mmol/L (8-16); Aspartate Amino Transferase 26 U/L (14-36); Bilirubin,Total 0.6 mg/dL (0.2-1.3); Blood Urea Nitrogen 12 mg/dL (7-17); Calcium 9.1 mg/dL (8.4-10.2); Carbon Dioxide 24 mmol/L (22-30); Chloride 108 mmol/L (98-107); Estimated Glomerular Filt Rate > 60; Glucose 99 mg/dL (65-110); Sodium 142 mmol/L (137-145)
[2021-09-15 13:26] LABS: Hemoglobin A1C 6.3 % (<5.7)
[2021-09-15 16:38] LABS: Urine Cotinine NEGATIVE
== END 2021-09-15 11:17 | disposition home or self-care (01) ==
PROVIDERS: PCP Family Medicine; Referring Provider Orthopaedic Surgery; Visit Provider Family Medicine
DX: M17.11 Unilateral primary osteoarthritis, right knee (principal); E11.9 Type 2 diabetes mellitus without complications; Z01.818 Encounter for other preprocedural examination; E78.5 Hyperlipidemia, unspecified; I10 Essential (primary) hypertension; Z86.73 Personal history of transient ischemic attack (TIA), and cerebral infarction without residual deficits
CPT/HCPCS: 36415; 80053; 80307; 83036; 85014; 85018

== ENCOUNTER 2021-10-05 09:52 | Outpatient (CLI) | payer BC, SELFPAY ==
[2021-10-05 11:43] LABS: Basophils Absolute Auto 0.1 K/mm3 (0.0-0.1); Basophils Percent Auto 0.6 % (0.2-1.2); Eosinophils Absolute Auto 0.4 K/mm3 (0-0.3); Eosinophils Percent Auto 3.5 % (0-4.4); Hematocrit 47.1 % (37.0-47.0); Hemoglobin 15.2 g/dL (12.0-15.0); Immature Granulocyte Absolute 0.03 K/mm3 (0.00-0.031); Immature Granulocyte Percent A 0.3 % (0-0.5); Lymphocytes Absolute Auto 3.74 K/mm3 (0.9-3.2); Mean Corpuscular HGB Conc 32.3 g/dl (32-36); Mean Corpuscular Hemoglobin 30.6 pg (26-34); Mean Corpuscular Volume 94.8 fl (80-100); Mean Platelet Volume 9.3 fl (7.4-10.4); Monocytes Absolute Auto 0.7 K/mm3 (0.1-0.6); Monocytes Percent Auto 6.5 % (2.6-8.5); Neutrophils Absolute Auto 6.3 K/mm3 (1.3-6.7); Neutrophils Percent Auto 56.1 % (45.5-73.1); Platelet Count Result 296 k/mm3 (150-375); Red Blood Count 4.97 M/mm3 (4.2-5.4); Red Cell Distribution Width 13.9 % (11.5-14.5); White Blood Count 11.3 K/mm3 (4.5-10.0)
== END 2021-10-05 09:53 | disposition home or self-care (01) ==
LOC: ANHSURGERY 09:56
PROVIDERS: PCP Family Medicine; Visit Provider Orthopaedic Surgery
DX: M17.11 Unilateral primary osteoarthritis, right knee (principal); Z01.818 Encounter for other preprocedural examination
CPT/HCPCS: 36415; 85025; 87081

== ENCOUNTER 2021-10-31 00:19 | Day surgery (SDC) | payer BC, SELFPAY ==
[2021-10-05 10:02] VITALS: BMI 39.3
--- NOTE | 2021-10-05 10:50 | PC.NURSE ---
Report to the Outpatient Waiting Room, entrance under the green pavilion located off [facility], at time _1100 on date __10/31/21 . OR Time: __1:00 PM . - You and your visitor will be asked a series of questions to screen for COVID 19 for your protection. - A mask is required within the hospital. Preoperative COVID Testing Requirements: No COVID Test needed if: (proof is required; if not received patient will have Rapid Test prior to entry) - Patient has received COVID Vaccine at least 14 days prior to procedure date or - Patient has positive COVID test result within last 90 days of surgery date. COVID Test needed if above criteria is not met If not COVID vaccinated a COVID test must be conducted within 72 hours of surgery and patient is asked to isolate self from time of testing until procedure. You will go to the [facility] for your COVID testing. The [facility] site is located at the corner of [address] [facility]. You will only be called if COVID results are positive and your surgeon may reschedule your elective surgery date. Patients may have clear liquids (water, carbonated beverages, clear teas, apple juice) until 3 hours prior to surgery with a maximum of 20 ounces. - No food from midnight until time of surgery - Infants may have breast milk until 4 hours before surgery, formula 6 hours prior to surgery. - Children will be allowed to drink immediately following surgery. If applicable, please bring a bottle or sippy cup to assist with drinking. Juice, water, soda, and popsicles are readily available. For infants on formula, please bring formula the day of surgery. Pacifiers are allowed. Take the following medications with a SIP of water the morning of surgery: GABAPENTIN,LEVOTHRYOXINE Medications to discontinue per physician ___ASPIRIN 7 DAYS PRE OP ALL VITAMINS AND SUPPLEMENTS 3 DAYS PRE OP Date to take last dose__ASPIRIN 10/23/21. ALL VITAMINS 10/27/21 CONTINUE USUAL BASAL RATE OF INSULIN Please no make-up, nail chinese, hairspray, perfume, deodorant, or body powder the day of surgery. No jewelry (including any body piercings) or valuables the day of surgery, leave them at home. Please take a shower or bath the night before, or the morning of, surgery with an antibacterial soap. Wear comfortable, loose fitting clothing. Children are encouraged to wear pajamas. - Jewelry must be removed prior to entering the operating room. Rings and piercings that are not removed may be cut off. - The hospital will not accept responsibility for valuables. - Please leave all valuables, including medications, at home the day of surgery. If you are going home after surgery, a licensed regional company truck driver must drive you home. - NO public transportation without another adult. - We recommend that an adult stay with you for 24 hours following discharge. - We also recommend that you do not drive, make important decision, drink alcoholic beverages, or take any drugs that were not prescribed by your health care provider for at least 24 hours after your discharge time. For Pediatric surgeries, we recommend two adults accompany the child home (only one inside the building at this time). One visitor will be allowed to accompany the patient into the hospital. Patients visitor will be instructed to remain with patient at all times or leave the building. We will allow the visitor to come back to the postoperative area when patient is ready. Follow any additional instructions given to you from your surgeon VERBAL AND WRITTEN instructions given to __PATIENT and asked if any additional questions and then verbalized understanding. Patient advised to call surgeon office or pre surgery nurse liaison [phone] if any additional questions.
[2021-10-05 11:08] VITALS: BP 118/58; PULSE 62; RESP 18; TEMP 36.7; O2SAT 99
[2021-10-31] VITALS (16 sets, daily range): BP systolic 102–151; BP diastolic 44–70; PULSE 50–79; RESP 12–20; TEMP 35.9–36.8; O2SAT 94–100
--- NOTE | ~2021-10-31 | XR_ITS ---
EXAM: XR knee RT 2V HISTORY: RT TOTAL KNEE, POST OP COMPARISON: 08/04/2021. FINDINGS: Interval right total knee arthroplasty placement, in good position. Expected postsurgical joint fluid and gas. No unexpected radiopaque foreign body. IMPRESSION: No radiographic evidence of hardware or procedure related consultation. Reviewed, dictated and finalized at location K.
--- NOTE | 2021-10-31 07:19 | WPDHPUPDATE1 ---
History and Physical Update Update Date/Time: 10/31/21 07:19 History and Physical has been reviewed, including an updated exam of the patient. There are NO changes in the patient's condition. Risks, benefits, and alternatives have been discussed and questions answered. Patient agrees to proceed with procedure.
--- NOTE | 2021-10-31 10:49 | WPDANESEPPF ---
Anes - Initial Pre Proc Eval Procedure: Operation Date: 10/31/21 13:00 Proposed Procedures p Right Total Knee Arthroplasty - Benny Harrell MD Date/Time: 10/31/21 10:49 Surgeon: Benny Harrell MD Pre Op Diagnosis: primary OA right knee Patient Data Age: 66 Gender: F Height: 1.52 m Weight: 91.3 kg Last Vital Signs Temp 36.7 C 10/05/21 11:08 Pulse 62 10/05/21 11:08 Resp 18 10/05/21 11:08 BP 118/58 L 10/05/21 11:08 Pulse Ox 99 10/05/21 11:08 Allergies Allergy/AdvReac Type Severity Reaction Status Date / Time metformin Allergy Intermediate Rash Verified 10/31/21 11:19 poison carlitos extract Allergy Intermediate Rash Verified 10/31/21 11:19 Home Medications Medication Instructions Recorded Confirmed Type aspirin 81 mg tablet,delayed 81 mg PO DAILY 04/19/20 10/31/21 History release cyanocobalamin (vitamin B-12) 500 mcg PO DAILY 04/19/20 10/31/21 History 1,000 mcg capsule levothyroxine 112 mcg capsule 112 mcg PO QAM 01/25/21 10/31/21 History linaclotide 145 mcg capsule 145 mcg PO QAM 01/25/21 10/31/21 History vitamin B complex 1 tablet PO DAILY 01/25/21 10/31/21 History DHEA 50 mg PO DAILY 04/27/21 10/31/21 History Ozempic 0.5 mg SUBCUT WEEKLY 04/27/21 10/31/21 History cholecalciferol (vitamin D3) 1 mcg PO WEEKLY 04/27/21 10/31/21 History gabapentin See Rx Instructions .ROUTE .COMPLEX 04/27/21 10/31/21 History simvastatin 20 mg PO QAM 04/27/21 10/31/21 History montelukast 10 mg tablet 10 mg PO DAILY #90 tablet 06/05/21 10/31/21 Rx acetaminophen [Tylenol Arthritis] 1,300 mg PO Q8H PRN 10/05/21 10/31/21 History blood-glucose sensor [Dexcom G6 10/05/21 10/18/21 History Sensor] insulin lispro [Humalog U-100 38 unit CONTINUOUS SUBCUTANEOUS 10/05/21 10/31/21 History Insulin] INFUSION DAILY irbesartan 300 mg tablet 300 mg PO QAM #90 tablet 10/17/21 10/31/21 Rx tramadol 50 mg tablet 50 mg PO Q6H PRN #30 tablet 10/18/21 10/31/21 Rx Patient hx anesthesia problems: none Family hx anesthesia problems: none Results Review: All pre-operative results and documents have been reviewed as part of the pre-operative evaluation. [facility] Past Medical History Medical History Allergic rhinitis Allergic rhinitis BMI 40.0-44.9, adult Constipation Diabetes mellitus Gastroparesis H/O: CVA (cerebrovascular accident) Hyperlipidemia Hyperlipidemia with target LDL less than 100 Hypertension Hypothyroidism (acquired) Neuropathy Pelvic floor dysfunction Primary hypertension Situational mixed anxiety and depressive disorder Type 2 diabetes mellitus with diabetic neuropathy, with long-term current use of insulin Surgical History Surgical History History of section (~1977) History of cholecystectomy (~1991) History of D&C (~1976) History of hysterectomy History of meniscectomy of right knee (~05/05/21) Arthroscopic Partial Medial History of tubal ligation (~1979) Family History Family History Other Asthma Cerebrovascular accident Depression Diabetes mellitus Family history of alcoholism Family history of anemia Family history of arthritis Family history of cardiovascular disease Family history of cataracts Family history of glaucoma Family history of hearing loss Family history of mental disorder Family history of migraine headaches Family history of obesity Family history of osteoporosis Hypertension Social History Social History Smoking status: Never smoker Second hand tobacco smoke exposure: Yes Additional smoking assessment comments: DENIES ANY FORM OF TOBACCO USE Alcohol intake: former Alcohol use details: SOCIALLY IN PAST Substance use: never Substance use type: does not use Living arrangements: alone Add
--- NOTE | 2021-10-31 10:49 | WPDANESPNB ---
Anes - Peripheral Nerve Block Date/Time: 10/31/21 10:49 I have discussed with the patient/family/POA the placement of a peripheral nerve block for post-operative pain management, including associated risks, benefits, complications, and side effects. Alternative methods of post-operative analgesia were detailed. Questions were solicited and answers provided to the satisfaction of the patient/family/POA. Time-Out: A pre-procedural Time-Out was completed immediately before starting the procedure and confirmed: Patient Identification, Site, Procedure, Patient Position and the Availability of Requisite Equipment. Clinical Indications: Acute post-operative pain management requested by the operative surgeon. Nerve Block Insertion Note Anes-nerve block: adductor canal right Patient position: supine Skin prep: chlorhexidine Needle: 22 gauge, stimulating, insulated echogenic needle. Needle length: 80 mm Technique: ultrasound Injectate: bupivacaine 0.5% with epi 5 mcg/ml (30cc - no epi) Observations: tolerated well Complications: none Procedure start time:: 1247 Procedure end time:: 1250
[2021-10-31] MEDS: ACETAMINOPHEN 500 MG TABLET 1000 MG PO (11:32)
[2021-10-31] MEDS: LACTATED RINGERS 1,000 ML 30 ML IV CONT ×2 (11:47→14:57)
[2021-10-31 11:49] LABS: Glucose Point of Care 125 mg/dl (65-105)
[2021-10-31] MEDS: TRANEXAMIC ACID 1,000MG/ISO100 1,000 MG/100 ML BAG 200 MG IVPB (12:43)
[2021-10-31] MEDS: ceFAZolin 2 GM/D5W 50 ML 2 GM/50 ML BAG IVPB ×2 (12:59→18:33)
[2021-10-31 15:08] LABS: Glucose Point of Care 125 mg/dl (65-105)
[2021-10-31] MEDS: fentaNYL CITRATE INJ (*CRX) 100 MCG/2 ML VIAL 25 MCG IV PUSH ×5 (15:26→16:38)
[2021-10-31] MEDS: ONDANSETRON INJ 4 MG/2 ML VIAL IV PUSH (15:34)
[2021-10-31] MEDS: diphenhydrAMINE HCl INJ 50 MG/ML VIAL 12.5 MG IV PUSH (15:48)
--- NOTE | 2021-10-31 15:55 | W.PM.PROC2 ---
Procedure Note - Detailed Date of Procedure 10/31/21 Pre-op Diagnosis primary OA right knee Post-op Diagnosis Same Procedure Performed Total knee arthroplasty, right knee. Surgeon Benny Harrell MD Generator Operator Straight Bevel Gear Candace Johnson PA-C Anesthesia General and Regional (Subsartorial block.) Findings Good bone quality. Standard bony resections. Description of Procedure The patient was given a nerve block preoperatively, and then brought to the operating room. A general anesthetic was administered. The leg was prepped and draped in the usual sterile fashion. The limb was elevated and the tourniquet inflated to 300 mmHg during initial exposure. A longitudinal incision was created along the medial border of the patella and patellar tendon, and a minimally invasive optimized mid-vastus approach to the knee was performed. A moderate medial release was taken. The knee was then flexed. The osteophytes were carefully removed. The intramedullary guide was placed in the femoral canal. The distal femoral resection was then taken with the oscillating saw. The collateral ligaments were carefully protected. The tibia was carefully exposed. The jig was applied, and the proximal tibia was resected according to preoperative plan. The pain really anesthetic mixture was injected into the periarticular tissues. The knee was balanced in extension, and appropriate releases were taken where needed. The anterior cruciate ligament and meniscal remnants were removed. The posterior cruciate ligament was preserved. The patella was measured. Patellar resection was carried out with the oscillating saw. The lug holes drilled. The femur was sized and rotation assessed using a combination of gap balancing, posterior referencing, and the AP axis. The 4 in 1 cutting block was used to finish the femoral cuts after equal gaps were assured. The lug holes were drilled. The osteophytes were carefully removed from the back of the knee. The knee was copiously irrigated with antibiotic solution periodically throughout the procedure. The meniscal remnants were removed. The spacer block was used to confirm equal flexion and extension gaps. Further releases were performed as needed. The tibia was sized and broached. The bony surfaces were prepared for cementing with pulsatile lavage. The real tibial component and femoral components were cemented into position. Excess cement was carefully removed. The polyethylene insert was placed. The patella component was subsequently cemented. Patellar tracking was carefully assessed. No additional releases were required. The wound was closed with #1 Vicryl suture, #2 Quill suture, 3-[id number] suture, and 2-0 Strata-fix suture followed by Steri-Strips. A sterile bulky dressing was applied. Meticulous hemostasis was maintained throughout the procedure. There were no complications. The patient was extubated and brought to the recovery room in stable condition after the application of sterile dressing with Mode bandage. Implants [email or web address] Triathlon knee system, low profile cemented tibia size 3, cemented cruciate-retaining femoral component size 3 ,and an 9 mm cruciate retaining polyethylene insert. 29 mm asymmetric cemented patella component. Estimated Blood Loss -150.0 Drains No Complications No immediate complications Condition Stable Disposition PACU
--- NOTE | 2021-10-31 17:08 | PC.NURSE ---
This patient, Jael Nieto, was admitted to 2 Medical Room 255-. Patient/family oriented to hospital policies and general routines including ID bracelet, bed and alarms, visiting hours, pain management, procedures, bathroom and other care routines, personal items, smoking policy, room service/diet, and visiting hours. Information on how to activate the Rapid Response Team has been discussed. Patient/Family are encouraged to report perceived risks to care and to ask questions if they do not understand what they are told or what they should do.
[2021-10-31 17:11] LABS: Glucose Point of Care 148 mg/dl (65-105)
[2021-10-31] MEDS: SODIUM CHLORIDE 0.9% IV 1,000 ML 125 ML IV CONT (17:35)
[2021-10-31] MEDS: GABAPENTIN 300 MG CAPSULE 600 MG PO (17:37)
[2021-10-31] MEDS: SENNA/DOCUSATE SODIUM TABLET 2 TAB PO (17:38)
[2021-10-31] MEDS: ASPIRIN 81 MG ENTERIC TABLET PO (17:38)
--- NOTE | 2021-10-31 18:26 | PHAR ---
The patient wishes to continue her Prasterone dhea 50mg tab. Rn brought pharmacy to verify stating its the white round pill in her med container. There are no markings on the pill so I am unable to verify it in the database.
[2021-10-31] MEDS: GABAPENTIN 300 MG CAPSULE 1200 MG PO (20:07)
[2021-10-31] MEDS: GABAPENTIN 300 MG CAPSULE PO (20:07)
[2021-10-31] MEDS: FAMOTIDINE 20 MG TABLET PO (20:08)
[2021-11-01 00:13] VITALS: BP 105/58; PULSE 61; RESP 20; TEMP 36.3; O2SAT 96
[2021-11-01] MEDS: ceFAZolin 2 GM/D5W 50 ML 2 GM/50 ML BAG IVPB ×2 (03:15→10:25)
[2021-11-01 05:18] VITALS: BP 117/59; PULSE 56; RESP 20; TEMP 36.4; O2SAT 100
[2021-11-01] MEDS: LEVOTHYROXINE SODIUM 112 MCG TABLET PO (05:32)
--- NOTE | 2021-11-01 07:36 | PM.IMCN ---
Assessment and Plan Assessment and plan (1) Primary hypertension: Code(s): I10 - Essential (primary) hypertension Status: Acute Assessment and Plan: Continued home irbesartan. She is normotensive. (2) Orthopedic aftercare: Code(s): Z47.89 - Encounter for other orthopedic aftercare Status: Acute Assessment and Plan: Patient is 1 day status post right knee total arthroplasty. She is doing well, and her pain is well controlled. We are consulting for medical management. She is able to ambulate, but has not been assessed by Physical therapy. Anticoagulation, antibiotics, and pain management per Orthopedics. (3) Type 2 diabetes mellitus with diabetic neuropathy, with long-term current use of insulin: Code(s): E11.40 - Type 2 diabetes mellitus with diabetic neuropathy, unspecified; Z79.4 - terminal clerk (current) use of insulin Status: Acute Assessment and Plan: Patient's blood sugars have satisfactory during her stay here. A1c is 6.3. Patient uses an insulin pump, which she manages herself, and was continued by Orthopedics during this stay. She relates she is running low on home insulin. Will utilize low dose sliding scale today for mealtimes only. (4) Hyperlipidemia: Code(s): E78.5 - Hyperlipidemia, unspecified Status: Acute Assessment and Plan: Home simvastatin continued by orthopedics. (5) Hypothyroidism (acquired): Code(s): E03.9 - Hypothyroidism, unspecified Status: Acute Assessment and Plan: Managed on levothyroxine daily, will continue. HPI Data of Consult Consult date: 11/01/21 Requesting Physician: Lesvia Nina PA-C Primary Care Provider: Mary Reeves MD Consult Narrative Narrative: Jael Nieto is a 66 year old female, with a history Diabetes Mellitus type II on insulin, mixed anxiety/ depressive disorder, hypothyroidism, hypertension, hyperlipidemia, now status post right total knee arthroplasty. We are consulting for postoperative medical management. Patient reports she did not sleep well, however, her pain is has been well controlled on tylenol during the night. She reports the spinal block is wearing off today and she will need stronger pain medication. She is ambulating without much difficulty. She has not been evaluated by PT yet. She wears an insulin pump, which was continued by orthopedics during her stay. She reports she may need some more insulin to get through to discharge due to the increase in dosing caused by her steroids. She denies chest pain, shortness of breath, or lower extremity swelling. She has already changed into clothes for her discharge. Review of Systems Review of Systems: All systems reviewed & are unremarkable except as noted in HPI and below PMFSH Past Medical History Medical History Allergic rhinitis Allergic rhinitis BMI 40.0-44.9, adult Constipation Diabetes mellitus Gastroparesis H/O: CVA (cerebrovascular accident) Hyperlipidemia Hyperlipidemia with target LDL less than 100 Hypertension Hypothyroidism (acquired) Neuropathy Pelvic floor dysfunction Primary hypertension Situational mixed anxiety and depressive disorder Type 2 diabetes mellitus with diabetic neuropathy, with long-term current use of insulin Surgical History Surgical History History of section (~1977) History of cholecystectomy (~1991) History of D&C (~1976) History of hysterectomy History of meniscectomy of right knee (~05/05/21) Arthroscopic Partial Medial History of tubal ligation (~1979) Family History Family History Other Asthma Cerebrovascular accident Depression Diabetes mellitus Family history of alcoholism Family history of anemia Family history of arthritis Family history of cardiovascular disease Family
[2021-11-01 08:12] LABS: Glucose Point of Care 207 mg/dl (65-105)
[2021-11-01] MEDS: polyethylene glycoL 3350 17 GM POWD.PACK PO (08:27)
[2021-11-01] MEDS: FAMOTIDINE 20 MG TABLET PO (08:27)
[2021-11-01] MEDS: IRBESARTAN 150 MG TABLET 300 MG PO (08:27)
[2021-11-01] MEDS: MONTELUKAST SODIUM 10 MG TABLET PO (08:28)
[2021-11-01] MEDS: SIMVASTATIN 20 MG TABLET PO (08:28)
[2021-11-01] MEDS: ASPIRIN 81 MG ENTERIC TABLET PO (08:28)
[2021-11-01] MEDS: LINACLOTIDE 145 MCG CAPSULE PO (08:28)
[2021-11-01] MEDS: SENNA/DOCUSATE SODIUM TABLET 2 TAB PO (08:29)
[2021-11-01] MEDS: oxyCODONE HCL (*CRX) 5 MG TAB IR PO (08:39)
--- NOTE | 2021-11-01 09:28 | PM.DS ---
DS: Admitting Diagnosis Discharge Date 11/01/21 Admitting Diagnosis OA knee Right DS: Discharge Diagnosis Discharge Diagnosis (1) Status post total right knee replacement: Code(s): Z96.651 - Presence of right artificial knee joint Status: Acute Assessment and Plan: Postop day 1: Right total knee arthroplasty. Patient tolerated procedure well. No complications. Pain manageable with pain medication. No numbness or tingling. We had a lengthy discussion regarding postoperative wound care, limitations, expectations, and exercises. Patient shows good understanding. She has had initial physical therapy and is tolerating it well. DVT prophylaxis: 81 mg baby aspirin b.i.d. for 14 days. Pain medication: Percocet. Ibuprofen. Prednisone. Patient has followup appointment with Dr. Harrell in 3 weeks. DS: Summary Hospital Course Reason for hospitalization: Total knee arthroplasty Hospital Course: Patient tolerated procedure well. Has had initial PT/OT. No complications. Pain well managed. Status at Discharge Functional status at discharge: uses cane/walker Overall status at discharge: patient is progressing back to baseline Time Spent with Patient Time attestation: Total time spent providing and/or coordinating discharge services: Exam Narrative: Overweight 66 y/o female. Resting comfortably in chair. No acute distress. A&O x3. Wearing compression socks bilaterally. Dressing intact with no drainage. Moderate swelling. No ecchymosis. No erythema. No hematoma. Good early range of motion. Calf nontender. Neurologic status intact. No varicosities. Distal pulses palpable. DS: Data Data Completed and Pending Labs on day of discharge: Labs from last 24 hours 11/01/21 10/31/21 10/31/21 07:30 17:08 15:06 POC Capillary Glucose 207 H 148 H 125 H Blood Type Antibody Screen 10/31/21 10/31/21 11:44 11:17 POC Capillary Glucose 125 H Blood Type A Negative Antibody Screen Negative Discharge Plan Discharge Patient Disposition: Home, Self-Care Discharge Instructions: See instruction sheet Stand Alone Forms: General Discharge Instructions Follow-up/Referrals: Candace Johnson PA [Physician Stone Splitter] - Discharge Medications: New aspirin 81 mg tablet,delayed release (DR/EC) 81 mg PO BID 14 Days Qty: 28 RF: 0 oxycodone-acetaminophen 5-325 mg tablet 1 - 2 tablet PO Q4-6H MDD 6 PRN (Reason: pain) Qty: 30 RF: 0 prednisone 5 mg tablet 5 mg PO DAILY 21 Days Qty: 21 RF: 0 Continued cyanocobalamin (vitamin B-12) 1,000 mcg capsule 500 mcg PO DAILY RF: 0 vitamin B complex Tablet 1 tablet PO DAILY RF: 0 levothyroxine 112 mcg capsule 112 mcg PO QAM RF: 0 Linzess 145 mcg capsule 145 mcg PO QAM RF: 0 tramadol 50 mg tablet 50 mg PO Q6H PRN (Reason: pain) Qty: 30 RF: 0 (DME) Dexcom G6 Sensor Device MISCELLANEOUS RF: 0 insulin lispro [Humalog U-100 Insulin] 100 unit/mL solution 38 unit continuous subcutaneous infusion DAILY RF: 0 acetaminophen 650 mg Tablet Extended Release 1,300 mg PO Q8H PRN (Reason: Pain) RF: 0 simvastatin 20 mg tablet 20 mg PO QAM RF: 0 gabapentin 300 mg capsule See Rx Instructions .ROUTE .COMPLEX RF: 0 cholecalciferol (vitamin D3) 1,250 mcg (50,000 unit) capsule 1 mcg PO WEEKLY RF: 0 DHEA 50 mg Capsule 50 mg PO DAILY RF: 0 Ozempic 0.25 mg or 0.5 mg(2 mg/1.5 mL) pen injector 0.5 mg SUBCUT WEEKLY RF: 0 montelukast 10 mg tablet 10 mg PO DAILY Qty: 90 RF: 3 irbesartan 300 mg tablet 300 mg PO QAM Qty: 90 RF: 1 Held aspirin [Adult Low Dose Aspirin] 81 mg tablet,delayed release (DR/EC) 81 mg PO DAILY RF: 0 Hold Instructions: Resume on 11/22/21.
[2021-11-01 11:31] LABS: Glucose Point of Care 198 mg/dl (65-105)
== END 2021-11-01 12:45 | disposition home or self-care (01) ==
LOC: ANHSURGERY 10:52 → ANH2MED 16:59
PROVIDERS: Orthopaedic Surgery; PCP Family Medicine; Visit Provider Student in an Organized Health Care Education/Training Program
PROC: (CPT 27447; principal; 2021-10-31 13:00)
DX: M17.11 Unilateral primary osteoarthritis, right knee (principal); G89.18 Other acute postprocedural pain; E78.5 Hyperlipidemia, unspecified; I10 Essential (primary) hypertension; E03.9 Hypothyroidism, unspecified; E11.40 Type 2 diabetes mellitus with diabetic neuropathy, unspecified; F41.8 Other specified anxiety disorders; K59.00 Constipation, unspecified; K31.84 Gastroparesis; Z86.73 Personal history of transient ischemic attack (TIA), and cerebral infarction without residual deficits; E66.9 Obesity, unspecified; Z68.39 Body mass index [BMI] 39.0-39.9, adult; Z79.82 Long term (current) use of aspirin; Z79.4 Long term (current) use of insulin
CPT/HCPCS: 27447; 64447; 36415; 73560; 82948; 85025; 86850; 86900; 86901; 87081; 97110; 97161; 97165; 97535; A9270; C1713; C1776; J0131; J0171; J0330; J0690; J1100; J1170; J1200; J1885; J2250; J2270; J2405; J2704; J2710; J2795; J3010; J7030; J7120

== ENCOUNTER 2021-11-26 17:55 | Emergency (ER) | payer BC, SELFPAY ==
[2021-11-26 18:13] VITALS: BP 146/65; PULSE 72; RESP 20; TEMP 36.1; O2SAT 100
--- NOTE | 2021-11-26 18:26 | ECG_ITS ---
Measurements Intervals [place] Rate: 67 P: 1 CT: 181 QRS: -16 QRSD: 89 T: 14 QT: 408 QTc: 431 Interpretive Statements SINUS RHYTHM DELAYED PRECORDIAL R/S TRANSITION LOW QRS VOLTAGE IN PRECORDIAL LEADS BASELINE ARTIFACT- I, II, III, AVR, AVL, AVF, V1-V2 BORDERLINE ECG Electronically Signed On 11-26-2021 19:05:55 CDT by Rene Rojas D.O.
[2021-11-26 18:44] LABS: Basophils Absolute Auto 0.1 K/mm3 (0.0-0.1); Basophils Percent Auto 0.4 % (0.2-1.2); Eosinophils Absolute Auto 0.1 K/mm3 (0-0.3); Eosinophils Percent Auto 0.7 % (0-4.4); Hemoglobin 13.9 g/dL (12.0-15.0); Immature Granulocyte Absolute 0.02 K/mm3 (0.00-0.031); Immature Granulocyte Percent A 0.2 % (0-0.5); Lymphocytes Absolute Auto 2.83 K/mm3 (0.9-3.2); Lymphocytes Percent Auto 24.3 % (18.3-44.2); Mean Corpuscular HGB Conc 32.3 g/dl (32-36); Mean Corpuscular Hemoglobin 30.4 pg (26-34); Mean Corpuscular Volume 94.1 fl (80-100); Mean Platelet Volume 9.4 fl (7.4-10.4); Monocytes Absolute Auto 0.8 K/mm3 (0.1-0.6); Monocytes Percent Auto 6.7 % (2.6-8.5); Neutrophils Absolute Auto 7.9 K/mm3 (1.3-6.7); Neutrophils Percent Auto 67.7 % (45.5-73.1); Platelet Count Result 313 k/mm3 (150-375); Red Blood Count 4.57 M/mm3 (4.2-5.4); Red Cell Distribution Width 13.5 % (11.5-14.5); White Blood Count 11.7 K/mm3 (4.5-10.0)
[2021-11-26 18:54] LABS: Prothrombin Time 13.2 Seconds (11.1-14.7)
[2021-11-26 18:55] LABS: Partial Thromboplastin Time 30.7 SECONDS (22.3-36.8)
--- NOTE | 2021-11-26 19:09 | ED.GENADULT ---
HPI - General Adult General Chief complaint: Weakness Stated complaint: diarrhea/weakness Time Seen by Provider: 11/26/21 18:56 Source: patient and RN notes reviewed Mode of arrival: ambulatory Limitations: no limitations History of Present Illness HPI narrative: 66-year-old female presented to the emergency department for evaluation of nausea vomiting diarrhea. Patient states she has been having decreased p.o. intake and increased generalized weakness since 11/24. Patient states that she did have a knee replacement 10/31 and has been doing well since then. Patient denies any fevers. Patient denies any worsening lower extremity pain or swelling. Patient has had recent follow-up with Ortho and they state everything looked well with the knee. Patient states that she has had some increased stiffness of the right leg but she believes that is due to her not being able to do her physical therapy. Patient denies any chest pain or shortness of breath. Patient denies any lower extremity pain or swelling. Patient does have history of diabetes and does have an insulin pump. Related Data Home Medications Medication Instructions Recorded Confirmed aspirin 81 mg tablet,delayed 81 mg PO DAILY 04/19/20 11/22/21 release cyanocobalamin (vitamin B-12) 500 mcg PO DAILY 04/19/20 11/22/21 1,000 mcg capsule levothyroxine 112 mcg capsule 112 mcg PO QAM 01/25/21 11/22/21 linaclotide 145 mcg capsule 145 mcg PO QAM 01/25/21 11/22/21 vitamin B complex 1 tablet PO DAILY 01/25/21 11/22/21 DHEA 50 mg PO DAILY 04/27/21 11/22/21 Ozempic 0.5 mg SUBCUT WEEKLY 04/27/21 11/22/21 cholecalciferol (vitamin D3) 1 mcg PO WEEKLY 04/27/21 11/22/21 gabapentin See Rx Instructions .ROUTE .COMPLEX 04/27/21 11/22/21 simvastatin 20 mg PO QAM 04/27/21 11/22/21 Dexcom G6 Sensor 10/05/21 11/22/21 acetaminophen 1,300 mg PO Q8H PRN 10/05/21 11/22/21 insulin lispro [Humalog U-100 38 unit CONTINUOUS SUBCUTANEOUS 10/05/21 11/22/21 Insulin] INFUSION DAILY Allergies Allergy/AdvReac Type Severity Reaction Status Date / Time metformin Allergy Intermediate Rash Verified 11/22/21 09:09 poison carlitos extract Allergy Intermediate Rash Verified 11/22/21 09:09 Review of Systems Review of Systems: CONSTITUTIONAL: Denies fever, chills, or sweats. EYES: Denies visual changes, redness, or discharge. ENT: Denies rhinorrhea, congestion, sore throat, or otalgia. CARDIOVASCULAR: Denies chest pain, palpitations, or edema. RESPIRATORY: Denies cough or dyspnea. GASTROINTESTINAL: See HPI GENITOURINARY: Denies dysuria or hematuria. SKIN: Denies rash or itching. MUSCULOSKELETAL: Denies back pain, joint pain, or myalgia. NEUROLOGIC: Denies headache, numbness, or weakness. [facility] Past Medical History Medical History Allergic rhinitis Allergic rhinitis BMI 40.0-44.9, adult Constipation Diabetes mellitus Gastroparesis H/O: CVA (cerebrovascular accident) Hyperlipidemia Hyperlipidemia with target LDL less than 100 Hypertension Hypothyroidism (acquired) Neuropathy Pelvic floor dysfunction Primary hypertension Situational mixed anxiety and depressive disorder Type 2 diabetes mellitus with diabetic neuropathy, with long-term current use of insulin Surgical History Surgical History History of section (~1977) History of cholecystectomy (~1991) History of D&C (~1976) History of hysterectomy History of meniscectomy of right knee (~05/05/21) Arthroscopic Partial Medial History of tubal ligation (~1979) Family History Family History Other Asthma Cerebrovascular accident Depression Diabetes mellitus Family history of alcoholism Family history of anemia Family history of arthritis Family history of cardiovascular disease Family history of cataracts Family history of glaucoma Family history of hearing
--- NOTE | 2021-11-26 19:19 | PC.NURSE ---
Report given to Km Ware RN
[2021-11-26 19:49] LABS: Appearance Urine Slightly Cloudy (Clear); Bilirubin Urine 1+ (Negative); Blood Urine Negative (Negative); Color Urine Yellow (Yellow); Glucose Urine UA Negative (Negative); Ketones Urine Trace mg/dL (Negative); Leukocyte Esterase Ur Trace LEU/UL (Negative); Nitrate Urine Negative (Negative); Protein Urine 1+ mg/dL (Negative); Specific Grav Ur 1.025 (1.001-1.035); pH Urine 5.5 (5.0-9.0)
[2021-11-26 19:51] LABS: Alanine Aminotransferase 16 U/L (6-35); Alkaline Phosphatase 62 U/L (38-126); Anion Gap 8 mmol/L (8-16); Aspartate Amino Transferase 23 U/L (14-36); Bilirubin,Total 0.7 mg/dL (0.2-1.3); Blood Urea Nitrogen 10 mg/dL (7-17); Calcium 9.2 mg/dL (8.4-10.2); Carbon Dioxide 24 mmol/L (22-30); Chloride 105 mmol/L (98-107); Estimated CRCL calculation 88 ml/min; Estimated Glomerular Filt Rate > 60; Glucose 166 mg/dL (65-110); Potassium 3.5 mmol/L (3.4-5.0); Sodium 137 mmol/L (137-145)
[2021-11-26 19:53] LABS: Bacteria Urine Trace /hpf; Mucus Urine Heavy /lpf; Squamous Epithelial Cell Urine Occasional /hpf (Few); WBC Urine 31-50 /hpf
[2021-11-26 19:55] LABS: Add Urine Microscopic? YES
[2021-11-26 20:04] VITALS: BP 105/90; PULSE 66; RESP 15; O2SAT 100
[2021-11-26] MEDS: SODIUM CHLORIDE 0.9% IV 1,000 ML 999 ML IV CONT (20:05)
[2021-11-26] MEDS: ONDANSETRON INJ 4 MG/2 ML VIAL IV PUSH (20:05)
[2021-11-26 21:12] VITALS: BP 178/84; PULSE 62; RESP 20; O2SAT 100
[2021-11-26 21:50] VITALS: BP 157/60; PULSE 56; RESP 14; O2SAT 100
== END 2021-11-26 21:52 | disposition home or self-care (01) ==
PROVIDERS: Emergency Medicine; Emergency Provider Emergency Medicine; PCP Family Medicine
DX: N39.0 Urinary tract infection, site not specified (principal); E11.43 Type 2 diabetes mellitus with diabetic autonomic (poly)neuropathy; E11.40 Type 2 diabetes mellitus with diabetic neuropathy, unspecified; K31.84 Gastroparesis; I10 Essential (primary) hypertension; E78.5 Hyperlipidemia, unspecified; E03.9 Hypothyroidism, unspecified; Z96.659 Presence of unspecified artificial knee joint; Z96.41 Presence of insulin pump (external) (internal); Z79.4 Long term (current) use of insulin; Z79.82 Long term (current) use of aspirin; Z86.73 Personal history of transient ischemic attack (TIA), and cerebral infarction without residual deficits; R94.31 Abnormal electrocardiogram [ECG] [EKG]
CPT/HCPCS: 36415; 80053; 81001; 85025; 85610; 85730; 87077; 87086; 87088; 93005; 96361; 96365; 96375; 99284; J0696; J2405; J7030

== ENCOUNTER 2021-12-27 08:55 | Emergency (ER) | payer BC, SELFPAY ==
--- NOTE | ~2021-12-27 | CT_ITS ---
EXAMINATION: CT lumbar spine wo con DATE: 12/27/2021 10:05 INDICATION: Low back pain. Lumbar radiculopathy. TECHNIQUE: Computed tomography (CT) of the lumbar spine was performed without intravenous contrast. A utomated exposure control and iterative reconstruction technique were employed. The dose-length produ ct was 1214.50 mGy-cm. COMPARISON: None FINDINGS: There is 4 degrees dextrocurvature of lumbar spine. Vertebral body heights are normal. Ther e is mildly decreased disc height at L2-L3 and moderately decreased disc height at L5-S1 with endplat e remodeling. The following disc levels are specifically discussed: L1-L2: The disc does not extend beyond the endplate margin. There is mild bilateral facet joint osteo arthritis. There is no neural foraminal stenosis. There is no central canal stenosis. L2-L3: The disc is bulging. There is mild bilateral facet joint osteoarthritis. There is mild bilater al neural foraminal stenosis. There is mild central canal stenosis. L3-L4: The disc is bulging. There is mild bilateral facet joint osteoarthritis. There is mild bilater al neural foraminal stenosis. There is mild central canal stenosis. L4-L5: The disc is bulging. There is moderate bilateral facet joint osteoarthritis with subchondral c yst in the right L4 facet. There is mild bilateral neural foraminal stenosis. There is mild central c anal stenosis. L5-S1: The disc is bulging. There is severe bilateral facet joint osteoarthritis. There is mild bilat eral neural foraminal stenosis. There is mild central canal stenosis. IMPRESSION: 1. Moderate lower lumbar spondylosis. Reviewed, dictated and finalized at location A.
[2021-12-27 08:58] VITALS: BP 138/80; PULSE 77; RESP 16; TEMP 37; O2SAT 100
--- NOTE | 2021-12-27 09:55 | PC.NURSE ---
Pt currently in CT at this time.
[2021-12-27 09:56] LABS: Basophils Absolute Auto 0.1 K/mm3 (0.0-0.1); Basophils Percent Auto 0.6 % (0.2-1.2); Eosinophils Absolute Auto 0.3 K/mm3 (0-0.3); Eosinophils Percent Auto 2.1 % (0-4.4); Hemoglobin 14.6 g/dL (12.0-15.0); Immature Granulocyte Absolute 0.03 K/mm3 (0.00-0.031); Immature Granulocyte Percent A 0.2 % (0-0.5); Lymphocytes Absolute Auto 3.18 K/mm3 (0.9-3.2); Lymphocytes Percent Auto 25.3 % (18.3-44.2); Mean Corpuscular Hemoglobin 30.7 pg (26-34); Mean Corpuscular Volume 90.5 fl (80-100); Mean Platelet Volume 9.1 fl (7.4-10.4); Monocytes Absolute Auto 0.9 K/mm3 (0.1-0.6); Monocytes Percent Auto 7.5 % (2.6-8.5); Neutrophils Absolute Auto 8.1 K/mm3 (1.3-6.7); Neutrophils Percent Auto 64.3 % (45.5-73.1); Platelet Count Result 279 k/mm3 (150-375); Red Blood Count 4.75 M/mm3 (4.2-5.4); Red Cell Distribution Width 13.4 % (11.5-14.5); White Blood Count 12.6 K/mm3 (4.5-10.0)
[2021-12-27 10:08] LABS: Anion Gap 3 mmol/L (8-16); Blood Urea Nitrogen 10 mg/dL (7-17); CRP 0.9 mg/dL (<1.0); Calcium 8.8 mg/dL (8.4-10.2); Carbon Dioxide 28 mmol/L (22-30); Chloride 107 mmol/L (98-107); Estimated CRCL calculation 75 ml/min; Estimated Glomerular Filt Rate > 60; Glucose 121 mg/dL (65-110); Potassium 3.7 mmol/L (3.4-5.0); Sodium 138 mmol/L (137-145)
[2021-12-27] MEDS: KETOROLAC 15 MG/ML VIAL (*BKC) IV PUSH (10:27)
[2021-12-27] MEDS: MORPHINE SULFATE (*CRX) 4 MG/ML INJ IV PUSH (10:27)
[2021-12-27] MEDS: ONDANSETRON INJ 4 MG/2 ML VIAL IV PUSH (10:27)
[2021-12-27 12:05] VITALS: BP 127/58; PULSE 64; RESP 18; O2SAT 99
--- NOTE | 2021-12-27 12:05 | ED.EXTPRO ---
HPI - Extremity Problem General Chief complaint: Extremity Problem,Nontraumatic Stated complaint: left leg pain Time Seen by Provider: 12/27/21 09:02 Source: patient Mode of arrival: ambulatory Limitations: no limitations History of Present Illness HPI Narrative: 66-year-old with a history of hypertension, diabetes, diabetic neuropathy s/p right knee replacement here with complaints of left hip and leg pain. Patient states that for the past few days she has been having quite intense pain in her left hip. Patient also mentions that her pain medication he is not helping. MD Complaint: extremity pain Onset (ago): week(s) (1) Pain Consistency: constant Location: left Quality: aching Radiation: distal Relieving factors: nothing Associated symptoms: denies other symptoms Context: recent surgery/procedure Related Data Home Medications Medication Instructions Recorded Confirmed cyanocobalamin (vitamin B-12) 500 mcg PO DAILY 04/19/20 12/13/21 1,000 mcg capsule levothyroxine 112 mcg capsule 112 mcg PO QAM 01/25/21 12/13/21 linaclotide 145 mcg capsule 145 mcg PO QAM 01/25/21 12/13/21 (Linzess) vitamin B complex 1 tablet PO DAILY 01/25/21 12/13/21 gabapentin 300 mg capsule See Rx Instructions .Route .COMPLEX 04/27/21 12/13/21 prasterone (dhea) 50 mg capsule 50 mg PO DAILY 04/27/21 12/13/21 (DHEA) semaglutide 0.25 mg or 0.5 mg (2 0.5 mg subcut WEEKLY 04/27/21 12/13/21 mg/1.5 mL) subcutaneous pen injector (Ozempic) simvastatin 20 mg tablet 20 mg PO QAM 04/27/21 12/13/21 blood-glucose sensor (Dexcom G6 10/05/21 12/13/21 Sensor device) insulin lispro 100 unit/mL 38 unit continuous subcutaneous 10/05/21 12/13/21 subcutaneous solution (Humalog infusion DAILY U-100 Insulin) aspirin 81 mg tablet,delayed 81 mg PO DAILY 12/01/21 12/13/21 release Allergies Allergy/AdvReac Type Severity Reaction Status Date / Time metformin Allergy Intermediate Rash Verified 12/27/21 09:04 poison carlitos extract Allergy Intermediate Rash Verified 12/27/21 09:04 Review of Systems Review of Systems: All systems reviewed & are unremarkable except as noted in HPI and below Constitutional: Constitutional: Reports no additional constitutional complaints Eyes: Eyes: Reports no additional eye complaints ENT: Reports system reviewed and no additional complaints, except as documented Cardiovascular: Cardiovascular: Reports no additional cardiovascular complaints Respiratory: Respiratory: Reports no additional respiratory complaints Gastrointestinal: Gastrointestinal: Reports no additional gastrointestinal complaints Musculoskeletal: Musculoskeletal: Reports as per HPI Integumentary/Breasts: Skin/Breast: Reports system reviewed and no additional complaints, except as docu Neurologic: Reports system reviewed and no additional complaints, except as documented Psychiatric: Psychiatric: Reports no additional psychiatric complaints [facility] Past Medical History Medical History Allergic rhinitis Allergic rhinitis BMI 37.0-37.9, adult BMI 40.0-44.9, adult Constipation Diabetes mellitus Gastroparesis H/O: CVA (cerebrovascular accident) Hyperlipidemia Hyperlipidemia with target LDL less than 100 Hypertension Hypothyroidism (acquired) Neuropathy Pelvic floor dysfunction Primary hypertension Situational mixed anxiety and depressive disorder Type 2 diabetes mellitus with diabetic neuropathy, with long-term current use of insulin Surgical History Surgical History History of section (~1977) History of cholecystectomy (~1991) History of D&C (~1976) History of hysterectomy History of meniscectomy of right knee (~05/05/21) Arthroscopic Partial Medial History of tubal ligation (~1979) Status post total knee replacement, right Family History Family History Other Asthma
== END 2021-12-27 12:15 | disposition home or self-care (01) ==
PROVIDERS: Emergency Provider Family Medicine; PCP Family Medicine
DX: M54.10 Radiculopathy, site unspecified (principal); E11.40 Type 2 diabetes mellitus with diabetic neuropathy, unspecified; E11.43 Type 2 diabetes mellitus with diabetic autonomic (poly)neuropathy; K31.84 Gastroparesis; I10 Essential (primary) hypertension; E78.5 Hyperlipidemia, unspecified; E03.9 Hypothyroidism, unspecified; Z96.651 Presence of right artificial knee joint; Z86.73 Personal history of transient ischemic attack (TIA), and cerebral infarction without residual deficits; Z79.82 Long term (current) use of aspirin; Z79.4 Long term (current) use of insulin; M47.816 Spondylosis without myelopathy or radiculopathy, lumbar region
CPT/HCPCS: 36415; 72131; 80048; 85025; 86140; 96374; 96375; 99284; J1885; J2270; J2405

== ENCOUNTER 2022-02-15 03:29 | Day surgery (SDC) | payer BC, SELFPAY ==
[2022-02-14 08:48] VITALS: BMI 39.1
--- NOTE | 2022-02-14 08:53 | PC.NURSE ---
Report to the Outpatient Waiting Room, entrance under the green pavilion located off [facility], at time ___729____ on date ___02/15/22____. OR Time: __929 . - You and your visitor will be asked a series of questions to screen for COVID 19 for your protection. - Only one visitor is allowed at this time. - The patient visitor is requested to leave or wait in car when not with patient. - A mask is required within the hospital. Patients may have clear liquids (water, carbonated beverages, clear teas, apple juice) until 3 hours prior to surgery (0630 AM) with a maximum of 20 ounces. - No food from midnight until time of surgery - Infants may have breast milk until 4 hours before surgery, infant formula 6 hours prior to surgery. - Children will be allowed to drink immediately following surgery. If applicable, please bring a bottle or sippy cup to assist with drinking. Juice, water, soda, and popsicles are readily available. For infants on formula, please bring formula the day of surgery. Pacifiers are allowed. Take the following medications with a SIP of water the morning of surgery: _DHEA, GABAPENTIN, LEVOTHYROXINE, PAIN MEDS IF NEEDED_*CONTINUE BASAL RATE OF INSULIN PUMP_ Medications to discontinue per physician _ASPIRIN, ALL VITAMINS DAY OF SURGERY_ Please no make-up, nail yakut, hairspray, perfume, deodorant, or body powder the day of surgery. No jewelry (including any body piercings) or valuables the day of surgery, leave them at home. Please take a shower or bath the night before, or the morning of, surgery with an antibacterial soap. Wear comfortable, loose fitting clothing. Children are encouraged to wear pajamas. - Jewelry must be removed prior to entering the operating room. Rings and piercings that are not removed may be cut off. - The hospital will not accept responsibility for valuables. - Please leave all valuables, including medications, at home the day of surgery. If you are going home after surgery, a licensed regional company truck driver must drive you home. - NO public transportation without another adult. - We recommend that an adult stay with you for 24 hours following discharge. - We also recommend that you do not drive, make important decision, drink alcoholic beverages, or take any drugs that were not prescribed by your health care provider for at least 24 hours after your discharge time. For Pediatric surgeries, we recommend two adults accompany the child home (only one inside the building at this time). Follow any additional instructions given to you from your surgeon. If you or anyone in your household have experienced Covid symptoms in the past week, please notify your surgeon or the nurse liaison at the phone number below for possible testing. Telephone instructions given to ___PT and asked if any additional questions and then verbalized understanding. Patient advised to call surgeon office or pre surgery nurse liaison [phone] if any additional questions.
--- NOTE | 2022-02-14 13:42 | WPDANESEPPF ---
Anes - Initial Pre Proc Eval Procedure: Operation Date: 02/15/22 09:30 Proposed Procedures p Manipulation of Right Total Knee - Benny Harrell MD Date/Time: 02/14/22 13:42 Surgeon: Benny Harrell MD Pre Op Diagnosis: Contracture of R total knee Patient Data Age: 66 Gender: F Height: 1.52 m Weight: 90.9 kg Allergies Allergy/AdvReac Type Severity Reaction Status Date / Time metformin Allergy Intermediate Rash Verified 02/15/22 07:50 poison carlitos extract Allergy Intermediate Rash Verified 02/15/22 07:50 Home Medications Medication Instructions Recorded Confirmed Type cyanocobalamin (vitamin B-12) 500 mcg PO DAILY 04/19/20 02/15/22 History 1,000 mcg capsule levothyroxine 112 mcg capsule 112 mcg PO QAM 01/25/21 02/15/22 History linaclotide 145 mcg capsule 145 mcg PO QAM 01/25/21 02/15/22 History (Linzess) vitamin B complex 1 tablet PO DAILY 01/25/21 02/15/22 History gabapentin 300 mg capsule See Rx Instructions .Route .COMPLEX 04/27/21 02/15/22 History prasterone (dhea) 50 mg capsule 50 mg PO DAILY 04/27/21 02/15/22 History (DHEA) semaglutide 0.25 mg or 0.5 mg (2 0.5 mg subcut WEEKLY 04/27/21 02/15/22 History mg/1.5 mL) subcutaneous pen injector (Ozempic) simvastatin 20 mg tablet 20 mg PO QAM 04/27/21 02/15/22 History montelukast 10 mg tablet 10 mg PO DAILY #90 tabs 06/05/21 02/15/22 Rx blood-glucose sensor (Dexcom G6 10/05/21 02/14/22 History Sensor device) insulin lispro 100 unit/mL 38 unit continuous subcutaneous 10/05/21 02/15/22 History subcutaneous solution (Humalog infusion DAILY U-100 Insulin) irbesartan 300 mg tablet 300 mg PO QAM #90 tabs 10/17/21 02/15/22 Rx cholecalciferol (vitamin D3) 1,250 50,000 unit PO WEEKLY 90 days #13 11/30/21 02/15/22 Rx mcg (50,000 unit) capsule caps aspirin 81 mg tablet,delayed 81 mg PO DAILY 12/01/21 02/15/22 History release hydrocodone 5 mg-acetaminophen 325 1 tablet PO Q6H PRN pain #30 tabs 02/12/22 02/15/22 Rx mg tablet cyclobenzaprine 10 mg tablet 10 mg PO ONCE PRN Muscle Spasm 02/14/22 02/15/22 History Patient hx anesthesia problems: none Family hx anesthesia problems: none Results Review: All pre-operative results and documents have been reviewed as part of the pre-operative evaluation. [facility] Past Medical History Medical History Allergic rhinitis Allergic rhinitis BMI 37.0-37.9, adult BMI 40.0-44.9, adult Constipation Diabetes mellitus Gastroparesis H/O: CVA (cerebrovascular accident) Hyperlipidemia Hyperlipidemia with target LDL less than 100 Hypertension Hypothyroidism (acquired) Neuropathy Pelvic floor dysfunction Primary hypertension Situational mixed anxiety and depressive disorder Type 2 diabetes mellitus with diabetic neuropathy, with long-term current use of insulin Surgical History Surgical History History of section (~1977) History of cholecystectomy (~1991) History of D&C (~1976) History of hysterectomy History of meniscectomy of right knee (~05/05/21) Arthroscopic Partial Medial History of tubal ligation (~1979) Status post total knee replacement, right Family History Family History Other Asthma Cerebrovascular accident Depression Diabetes mellitus Family history of alcoholism Family history of anemia Family history of arthritis Family history of cardiovascular disease Family history of cataracts Family history of glaucoma Family history of hearing loss Family history of mental disorder Family history of migraine headaches Family history of obesity Family history of osteoporosis Hypertension Social History Social History Smoking status: Never smoker Second hand tobacco smoke exposure: No Additional smoking assessment comments: DENIES ANY
--- NOTE | 2022-02-15 07:15 | WPDHPUPDATE1 ---
History and Physical Update Update Date/Time: 02/15/22 07:15 History and Physical has been reviewed, including an updated exam of the patient. There are NO changes in the patient's condition. Risks, benefits, and alternatives have been discussed and questions answered. Patient agrees to proceed with procedure.
[2022-02-15] MEDS: ACETAMINOPHEN 500 MG TABLET 1000 MG PO (08:05)
[2022-02-15] MEDS: LACTATED RINGERS 1,000 ML 30 ML IV CONT (08:14)
[2022-02-15] MEDS: KETOROLAC 15 MG/ML VIAL (*BKC) IV PUSH (08:18)
[2022-02-15 08:19] VITALS: BP 106/63; PULSE 80; RESP 16; TEMP 36.8; O2SAT 96
[2022-02-15 08:28] LABS: Glucose Point of Care 213 mg/dl (65-105)
[2022-02-15 09:36] VITALS: BP 110/49; PULSE 68; RESP 14; O2SAT 100
[2022-02-15 09:52] LABS: Glucose Point of Care 167 mg/dl (65-105)
[2022-02-15 10:06] VITALS: BP 128/89; PULSE 72; RESP 16; O2SAT 98
[2022-02-15] MEDS: oxyCODONE HCL (*CRX) 5 MG TAB IR PO (10:12)
[2022-02-15 10:36] VITALS: BP 135/85; PULSE 64; RESP 16
--- NOTE | 2022-02-15 11:03 | SUR.PHASEII ---
Patient's vital signs stable, patient dressed waiting for ride to pick up driver.
--- NOTE | 2022-02-15 15:18 | W.PM.PROC2 ---
Procedure Note - Detailed Date of Procedure 02/15/22 Pre-op Diagnosis Contracture of R total knee Post-op Diagnosis Same Procedure Performed Manipulation under anesthesia, right knee, status post total knee arthroplasty. Surgeon Benny Harrell MD Anesthesia General Description of Procedure The patient was appropriately sedated. Knee motion began at 10? to 100?. Gentle, slow steady stretching of the knee was performed both in extension and flexion. Extension improved to 5? and flexion improved to 125? with pressure and 120? without. Adhesions were felt to release during deep flexion. Stability and balance of the knee felt appropriate. No other abnormal findings upon examination. Complications No immediate complications Condition Stable Disposition PACU [facility] Billing Surgery - Charge Forward: Surgery Billing
== END 2022-02-15 11:06 | disposition home or self-care (01) ==
PROVIDERS: PCP Family Medicine; Visit Provider Orthopaedic Surgery
PROC: (CPT 27570; principal; 2022-02-15 09:30)
DX: M24.561 Contracture, right knee (principal); Z96.651 Presence of right artificial knee joint; I10 Essential (primary) hypertension; E78.5 Hyperlipidemia, unspecified; E11.40 Type 2 diabetes mellitus with diabetic neuropathy, unspecified; K31.84 Gastroparesis; Z86.73 Personal history of transient ischemic attack (TIA), and cerebral infarction without residual deficits; F41.8 Other specified anxiety disorders; E66.9 Obesity, unspecified; Z68.37 Body mass index [BMI] 37.0-37.9, adult; Z79.4 Long term (current) use of insulin; Z79.82 Long term (current) use of aspirin; Z79.899 Other long term (current) drug therapy; Z79.891 Long term (current) use of opiate analgesic
CPT/HCPCS: 27570; 82948; A9270; J1030; J1040; J1885; J2250; J2704; J3010; J3301; J7120

== ENCOUNTER 2022-09-17 16:25 | Emergency (ER) | payer BC, SELFPAY ==
[2022-09-17 16:44] VITALS: BP 185/72; PULSE 60; RESP 16; TEMP 37.1; O2SAT 99
--- NOTE | 2022-09-17 16:50 | ED.FEMALEGU ---
HPI - Female Genitourinary General Chief complaint: Urogenital-Female Stated complaint: Abdominal Pain/Back Pain/ Vomiting/UTI Time Seen by Provider: 09/17/22 16:51 Source: patient, RN notes reviewed and old records reviewed Mode of arrival: ambulatory Limitations: no limitations History of Present Illness HPI Narrative: 67-year-old female presents to the [facility] with right flank, right lower quadrant, right groin pain that has increased over the last 2 hours. Has had the feeling of frequency of urination but and able to urinate. Patient states she has vomited twice in the last 30 minutes. Rates the pain an 8/10. Has not taken anything for pain. Denies ever having kidney stones Onset (ago): hour(s) (4) Related Data Home Medications Medication Instructions Recorded Confirmed levothyroxine 112 mcg capsule 112 mcg PO QAM 01/25/21 06/22/22 vitamin B complex 1 tablet PO DAILY 01/25/21 06/22/22 prasterone (dhea) 50 mg capsule 50 mg PO DAILY 04/27/21 06/22/22 (DHEA) semaglutide 0.25 mg or 0.5 mg (2 0.5 mg subcut WEEKLY 04/27/21 06/22/22 mg/1.5 mL) subcutaneous pen injector (Wireless Toyzempic) blood-glucose sensor (Dexcom G6 10/05/21 06/22/22 Sensor device) insulin lispro 100 unit/mL 38 unit continuous subcutaneous 10/05/21 06/22/22 subcutaneous solution (Humalog infusion DAILY U-100 Insulin) aspirin 81 mg tablet,delayed 81 mg PO DAILY 12/01/21 06/22/22 release Allergies Allergy/AdvReac Type Severity Reaction Status Date / Time metformin Allergy Intermediate Rash Verified 09/17/22 16:56 poison carlitos extract Allergy Intermediate Rash Verified 09/17/22 16:56 Review of Systems Review of Systems: All systems reviewed & are unremarkable except as noted in HPI and below Constitutional: Constitutional: Reports no additional constitutional complaints Eyes: Eyes: Reports no additional eye complaints ENT: Reports system reviewed and no additional complaints, except as documented Cardiovascular: Cardiovascular: Reports no additional cardiovascular complaints, Denies chest pain and Denies dyspnea Respiratory: Respiratory: Reports no additional respiratory complaints, Denies chest congestion, Denies cough and Denies dyspnea Gastrointestinal: Gastrointestinal: Reports as per HPI, Reports abdominal pain, Reports nausea and Reports vomiting Genitourinary: Genitourinary: Reports as per HPI and Reports flank pain (Right) Musculoskeletal: Musculoskeletal: Reports no additional musculoskeletal complaints Integumentary/Breasts: Skin/Breast: Reports system reviewed and no additional complaints, except as docu Neurologic: Reports system reviewed and no additional complaints, except as documented Psychiatric: Psychiatric: Reports no additional psychiatric complaints Allergic/Immunologic: Allergic/Immunologic: Reports no additional allergic/immunologic complaints PMFSH Past Medical History Medical History Allergic rhinitis Allergic rhinitis BMI 37.0-37.9, adult BMI 40.0-44.9, adult Constipation Diabetes mellitus Gastroparesis H/O: CVA (cerebrovascular accident) Hyperlipidemia Hyperlipidemia with target LDL less than 100 Hypertension Hypothyroidism (acquired) Neuropathy Pelvic floor dysfunction Primary hypertension Situational mixed anxiety and depressive disorder Type 2 diabetes mellitus with diabetic neuropathy, with long-term current use of insulin Surgical History Surgical History History of section (~1977) History of cholecystectomy (~1991) History of D&C (~1976) History of hysterectomy History of meniscectomy of right knee (~05/05/21) Arthroscopic Partial Medial History of tubal ligation (~1979) Status post total knee replacement, right Family History Family History Other Asthma Cerebrovascular accident Depression Diabetes sudheer
--- NOTE | 2022-09-17 17:04 | PC.NURSE ---
Pt agreeable to transfer to [facility] for evaluation of a possible kidney stone. Report called and when RN returned to room for pt to sign consent pt states she is unsure if she will be able to drive. Pt states that she tried to call for a ride. RN informed pt that I will check back on her ride status in a few minutes.
--- NOTE | 2022-09-17 17:12 | PC.NURSE ---
Pt states that she has a ride coming and they should be here to pick her up in approximately 5 minutes. Pt still appears very uncomfortable. RN informed pt she could wait in exam room or [facility]. Pt opted to go to [facility] so she could watch for her ride. Pt taken to R via wheelchair per pt's request. Pt informed to notify staff if she needs any assistance getting out of building. Pt verbalized understanding. Pt seen on camera ambulating to restroom and then walking outside to get into a car.
== END 2022-09-17 17:17 | disposition short-term general hospital (02) ==
PROVIDERS: Emergency Provider Nurse Practitioner; PCP Family Medicine
DX: R10.31 Right lower quadrant pain (principal); R30.0 Dysuria; E11.43 Type 2 diabetes mellitus with diabetic autonomic (poly)neuropathy; K31.84 Gastroparesis; Z79.4 Long term (current) use of insulin; E11.42 Type 2 diabetes mellitus with diabetic polyneuropathy; Z86.73 Personal history of transient ischemic attack (TIA), and cerebral infarction without residual deficits; E78.5 Hyperlipidemia, unspecified; E03.9 Hypothyroidism, unspecified; Z96.651 Presence of right artificial knee joint
CPT/HCPCS: 81003; 99212; G0463

== ENCOUNTER 2022-09-17 17:30 | Observation (INO) | payer BC, SELFPAY ==
--- NOTE | ~2022-09-17 | CT_ITS ---
EXAMINATION: CT abdomen pelvis wo con DATE: 09/17/2022 18:08 INDICATION: R flank pain TECHNIQUE: Computed tomography (CT) of the abdomen and pelvis was performed without intravenous contr ast. Automated exposure control and iterative reconstruction technique were employed. The dose-length product was 1289.02 mGy-cm. COMPARISON: 10/26/2013. FINDINGS: Lower thorax: Unremarkable Liver: Normal. Biliary/Gallbladder: Gallbladder is absent. No bile duct dilation. Pancreas: Atrophy. Spleen: Normal. Adrenals: Mild stable left adrenal thickening. Kidneys: Bilateral perinephric stranding, greater on the right. No suspicious mass. Moderate right hy dronephrosis. GI tract: No small or large bowel dilation. Normal appendix. Mesentery/Peritoneum: No ascites, mass, or free air. Mild central mesenteric edema, a nonspecific fin ding. Retroperitoneum: No mass. Atherosclerotic abdominal aortic and/or arterial calcifications. Pelvis: The urinary bladder is decompressed. 4 mm calcification at the right UVJ. The uterus is surgi denny absent. Soft Tissues: Soft tissues and body wall unremarkable. Bones: No acute osseous finding. IMPRESSION: 4 mm right UVJ stone, causing moderate obstructive uropathy Reviewed, dictated and finalized at location K. ETING AND DEVELOPMENT COORDINATOR
--- NOTE | ~2022-09-17 | XR_ITS ---
EXAMINATION: XR retrograde pyelo w/stent RT DATE: 09/18/2022 14:59 INDICATION: Right ureteral stone. TECHNIQUE: A single intraoperative fluoroscopic view of the abdomen was obtained. I was not present. Fluoroscopy exposure time was 13 seconds. COMPARISON: CT abdomen and pelvis 09/17/2022 FINDINGS: The right-sided retrograde pyelogram is unremarkable. IMPRESSION: 1. Normal right-sided retrograde pyelogram. Reviewed, dictated and finalized at location A. RETE RUBBER
--- NOTE | ~2022-09-17 | US_ITS ---
EXAMINATION: US renal BI DATE: 09/18/2022 09:23 INDICATION: Right ureteral stone. TECHNIQUE: Multiple ultrasound grayscale images of the kidneys were obtained. COMPARISON: CT abdomen and pelvis 09/17/2022 FINDINGS: The right kidney measures 10.2 x 5.9 x 5.8 cm, which is normal. The left kidney measures 10.5 x 4.8 x 5.5 cm, which is normal. The kidneys demonstrate normal parenchymal echogenicity. There is mild righ t hydronephrosis. The bladder is decompressed. IMPRESSION: 1. Mild right hydronephrosis. Reviewed, dictated and finalized at location A. RBERATORY SKIMMER
[2022-09-17 17:33] VITALS: BP 175/79; PULSE 59; RESP 22; TEMP 35.9; O2SAT 100
--- NOTE | 2022-09-17 17:56 | ED.ABDPAIN ---
HPI - Abdominal Pain General Chief Complaint: Abdominal Pain Stated Complaint: abdominal pain Time Seen by Provider: 09/17/22 17:52 History of Present Illness HPI narrative: Patient is a 67-year-old female with a history of diabetes with an insulin pump, hypertension, hyperlipidemia presenting with right flank pain. Patient states that she developed right flank pain earlier this afternoon. She then developed multiple episodes of emesis. She went to urgent care and then was directed to the ER. Patient states that she feels like she needs to urinate but it has been difficult to do so. Denies diarrhea or constipation. Denies chest pain, shortness of breath, cough, fevers or chills. Related Data Home Medications Medication Instructions Recorded Confirmed levothyroxine 112 mcg capsule 112 mcg PO QAM 01/25/21 09/17/22 vitamin B complex 1 tablet PO DAILY 01/25/21 09/17/22 prasterone (dhea) 50 mg capsule 50 mg PO DAILY 04/27/21 09/17/22 (DHEA) semaglutide 0.25 mg or 0.5 mg (2 0.5 mg subcut WEEKLY 04/27/21 09/17/22 mg/1.5 mL) subcutaneous pen injector (Ozempic) insulin lispro 100 unit/mL See Rx Instructions .Route .COMPLEX 10/05/21 09/17/22 subcutaneous solution (Humalog U-100 Insulin) aspirin 81 mg tablet,delayed 81 mg PO DAILY 12/01/21 09/17/22 release Allergies Allergy/AdvReac Type Severity Reaction Status Date / Time metformin Allergy Intermediate Rash Verified 09/18/22 14:23 poison carlitos extract Allergy Intermediate Rash Verified 09/18/22 14:23 Review of Systems Review of Systems: All systems reviewed & are unremarkable except as noted in HPI and below PMFSH Past Medical History Medical History Acute medial meniscus tear of right knee Allergic rhinitis Arthritis of right knee BMI 37.0-37.9, adult BMI 40.0-44.9, adult Contracture, right knee Diplopia FH: rheumatoid arthritis Gastroparesis H/O: CVA (cerebrovascular accident) Hyperlipidemia Hypothyroidism (acquired) Left superior oblique palsy Neuropathy Pelvic floor dysfunction Positive anti-CCP test Primary hypertension Situational mixed anxiety and depressive disorder Trochanteric bursitis, left hip Type 2 diabetes mellitus with diabetic neuropathy, with long-term current use of insulin Surgical History Surgical History History of section (~1977) History of cholecystectomy (~1991) History of D&C (~1976) History of hysterectomy History of meniscectomy of right knee (~05/05/21) Arthroscopic Partial Medial History of tubal ligation (~1979) Status post total knee replacement, right Status post total right knee replacement Family History Family History Other Asthma Cerebrovascular accident Depression Diabetes mellitus Family history of alcoholism Family history of anemia Family history of arthritis Family history of cardiovascular disease Family history of cataracts Family history of glaucoma Family history of hearing loss Family history of mental disorder Family history of migraine headaches Family history of obesity Family history of osteoporosis Hypertension Social History Social History Smoking status: Never smoker Second hand tobacco smoke exposure: No Additional smoking assessment comments: DENIES ANY FORM OF TOBACCO USE Alcohol intake: former Drinks per week: 1 Alcohol use details: SOCIALLY IN PAST Substance use: never Substance use type: does not use Other substance usage details: tried cbc gummies 2 nights for pain but nothing after Lack of Transportation: No Lack of Food: Never True Current Housing: Decline to Answer Concerned About Future Housing: No Difficulty Paying Gas/Electric Bills: No Difficulty Paying for Meds: No Currently U
[2022-09-17 18:35] LABS: Basophils Absolute Auto 0.1 K/mm3 (0.0-0.1); Basophils Percent Auto 0.6 % (0.2-1.2); Eosinophils Absolute Auto 0.1 K/mm3 (0-0.3); Eosinophils Percent Auto 0.9 % (0-4.4); Hematocrit 44.5 % (37.0-47.0); Hemoglobin 14.8 g/dL (12.0-15.0); Immature Granulocyte Absolute 0.03 K/mm3 (0.00-0.031); Immature Granulocyte Percent A 0.2 % (0-0.5); Lymphocytes Absolute Auto 2.57 K/mm3 (0.9-3.2); Lymphocytes Percent Auto 17.3 % (18.3-44.2); Mean Corpuscular HGB Conc 33.3 g/dl (32-36); Mean Corpuscular Hemoglobin 30.2 pg (26-34); Mean Corpuscular Volume 90.8 fl (80-100); Monocytes Absolute Auto 1.1 K/mm3 (0.1-0.6); Monocytes Percent Auto 7.2 % (2.6-8.5); Neutrophils Percent Auto 73.8 % (45.5-73.1); Platelet Count Result 290 k/mm3 (150-375); Red Cell Distribution Width 13.2 % (11.5-14.5); White Blood Count 14.9 K/mm3 (4.5-10.0)
[2022-09-17 18:53] LABS: Alanine Aminotransferase 19 U/L (6-35); Albumin Level 4.5 g/dL (3.5-5.1); Alkaline Phosphatase 72 U/L (38-126); Anion Gap 9 mmol/L (8-16); Aspartate Amino Transferase 27 U/L (14-36); Bilirubin,Total 0.8 mg/dL (0.2-1.3); Blood Urea Nitrogen 13 mg/dL (7-17); Calcium 9.3 mg/dL (8.4-10.2); Carbon Dioxide 23 mmol/L (22-30); Chloride 106 mmol/L (98-107); Estimated CRCL calculation 58 ml/min; Estimated Glomerular Filt Rate > 60; Glucose 126 mg/dL (65-110); Lipase 43 U/L (23-300); Sodium 138 mmol/L (137-145)
[2022-09-17] MEDS: HYDROmorphone HCL INJ (*CRX) 1 MG/ML SYR 0.5 MG IV PUSH ×2 (19:06→20:38)
[2022-09-17] MEDS: SODIUM CHLORIDE 0.9% IV 1,000 ML 999 ML IV CONT ×2 (19:06→20:39)
[2022-09-17] MEDS: ONDANSETRON INJ 4 MG/2 ML VIAL IV PUSH ×2 (19:07→20:39)
--- NOTE | 2022-09-17 21:14 | PM.IMHP ---
H&P: HPI History of Present Illness Date/Time: 09/17/22 21:14 Chief Complaint: FLANK PAIN PMFSH Past Medical History Medical History Allergic rhinitis Allergic rhinitis BMI 37.0-37.9, adult BMI 40.0-44.9, adult Constipation Diabetes mellitus Gastroparesis H/O: CVA (cerebrovascular accident) Hyperlipidemia Hyperlipidemia with target LDL less than 100 Hypertension Hypothyroidism (acquired) Neuropathy Pelvic floor dysfunction Primary hypertension Situational mixed anxiety and depressive disorder Type 2 diabetes mellitus with diabetic neuropathy, with long-term current use of insulin Surgical History Surgical History History of section (~1977) History of cholecystectomy (~1991) History of D&C (~1976) History of hysterectomy History of meniscectomy of right knee (~05/05/21) Arthroscopic Partial Medial History of tubal ligation (~1979) Status post total knee replacement, right Family History Family History Other Asthma Cerebrovascular accident Depression Diabetes mellitus Family history of alcoholism Family history of anemia Family history of arthritis Family history of cardiovascular disease Family history of cataracts Family history of glaucoma Family history of hearing loss Family history of mental disorder Family history of migraine headaches Family history of obesity Family history of osteoporosis Hypertension Social History Social History Smoking status: Never smoker Second hand tobacco smoke exposure: No Additional smoking assessment comments: DENIES ANY FORM OF TOBACCO USE Alcohol intake: former Drinks per week: 1 Alcohol use details: SOCIALLY IN PAST Substance use: never Substance use type: does not use Other substance usage details: tried cbc gummies 2 nights for pain but nothing after Lack of Transportation: No Lack of Food: Never True Current Housing: Decline to Answer Concerned About Future Housing: No Difficulty Paying Gas/Electric Bills: No Difficulty Paying for Meds: No Currently Unemployed: No Education: Bachelor's Degree Difficulty w/ Childcare or Family Care: No Living arrangements: alone Additional living arrangements comments: Significant other. Occupation/Education: occupation Gender identity (if verbalized by the patient): Female Spiritual care concerns: No Meds Home Medications and Allergies Home Medications Medication Instructions Recorded Confirmed Type levothyroxine 112 mcg capsule 112 mcg PO QAM 01/25/21 06/22/22 History vitamin B complex 1 tablet PO DAILY 01/25/21 06/22/22 History prasterone (dhea) 50 mg capsule 50 mg PO DAILY 04/27/21 06/22/22 History (DHEA) semaglutide 0.25 mg or 0.5 mg (2 0.5 mg subcut WEEKLY 04/27/21 06/22/22 History mg/1.5 mL) subcutaneous pen injector ([employer]) insulin lispro 100 unit/mL 38 unit continuous subcutaneous 10/05/21 09/17/22 History subcutaneous solution (Humalog infusion DAILY U-100 Insulin) aspirin 81 mg tablet,delayed 81 mg PO DAILY 12/01/21 06/22/22 History release irbesartan 300 mg tablet 300 mg PO QAM #90 tabs 05/08/22 09/17/22 Rx linaclotide 145 mcg capsule 145 mcg PO QAM #90 caps 05/10/22 06/22/22 Rx (Linzess) cholecalciferol (vitamin D3) 1,250 50,000 unit PO WEEKLY 90 days #13 06/19/22 06/22/22 Rx mcg (50,000 unit) capsule caps montelukast 10 mg tablet 10 mg PO DAILY #90 tabs 07/26/22 09/17/22 Rx gabapentin 300 mg capsule See Rx Instructions .Route 08/28/22 09/17/22 Rx .COMPLEX #630 caps simvastatin 20 mg tablet 20 mg PO QAM #90 tabs 08/28/22 09/17/22 Rx Allergies Allergy/AdvReac Type Severity Reaction Status Date / Time metformin Allergy Intermediate Rash Verified 09/17/22 16:56 poison carlitos extr
[2022-09-17] MEDS: TAMSULOSIN HCL 0.4 MG CAPSULE PO (21:17)
[2022-09-17 21:38] LABS: Appearance Urine Clear (Clear); Bilirubin Urine Negative (Negative); Blood Urine 3+ (Negative); Color Urine Yellow (Yellow); Glucose Urine UA Negative (Negative); Ketones Urine 2+ mg/dL (Negative); Leukocyte Esterase Ur 1+ LEU/UL (Negative); Nitrate Urine Negative (Negative); Protein Urine Negative (Negative); Urobilinogen Urine 0.2 mg/dL (<2.0)
[2022-09-17 21:52] LABS: Add Urine Microscopic? YES; Bacteria Urine Trace /hpf; Mucus Urine Rare /lpf; RBC Urine >75 /hpf (0-2); Squamous Epithelial Cell Urine Rare /hpf (Few)
[2022-09-17 22:22] LABS: SARS-CoV-2 RNA PCR Negative
[2022-09-17 22:36] VITALS: BP 155/71; PULSE 52; RESP 16; TEMP 36.7; O2SAT 98
--- NOTE | 2022-09-17 22:53 | PC.NURSE ---
This patient, Jael Nieto, was admitted to [facility] Surg Room 325-02. Patient/family oriented to hospital policies and general routines including ID bracelet, bed and alarms, visiting hours, pain management, procedures, bathroom and other care routines, personal items, smoking policy, room service/diet, and visiting hours. Information on how to activate the Rapid Response Team has been discussed. Patient/Family are encouraged to report perceived risks to care and to ask questions if they do not understand what they are told or what they should do. arrived [id number]
[2022-09-17 23:13] VITALS: BMI 38.2
[2022-09-17 23:41] VITALS: BP 166/69; PULSE 51; RESP 16; TEMP 36.1; O2SAT 97
[2022-09-18] VITALS (19 sets, daily range): BP systolic 106–163; BP diastolic 39–67; PULSE 57–89; RESP 14–31; TEMP 36.2–36.9; O2SAT 91–100
--- NOTE | 2022-09-18 00:14 | PC.NURSE ---
pt self manages Dexcom G6 insulin pump, agreement sign for pt self mange insulin pump, paperwork at bedside
[2022-09-18] MEDS: PROCHLORPERAZINE EDISYLATE 10 MG/2 ML VIAL IV PUSH ×2 (04:46)
[2022-09-18] MEDS: HYDROmorphone HCL INJ (*CRX) 1 MG/ML SYR IV PUSH ×3 (04:46→08:23)
--- NOTE | 2022-09-18 08:00 | PM.IMPN ---
Progress Note: A&P Assessment and Plan (1) Ureterovesical junction (UVJ) obstruction: Code(s): N13.5 - Crossing vessel and stricture of ureter without hydronephrosis Status: Acute Assessment and Plan: CT shows right UVJ stone with obstruction and hydronephrosis urology consulted NPO for now started patient on ceftriaxone trend urine output pain medications on board antiemetics on board (2) Hydronephrosis concurrent with and due to calculi of kidney and ureter: Code(s): N13.2 - Hydronephrosis with renal and ureteral calculous obstruction Status: Acute Assessment and Plan: see above (3) Abnormal urinalysis: Code(s): R82.90 - Unspecified abnormal findings in urine Status: Acute Assessment and Plan: UA does appear to be mildly infectious started patient on ceftriaxone 2 g Q 24 per ID WBC slightly elevated at 14,000 trend labs trend urine output (4) Type 2 diabetes mellitus with diabetic neuropathy, with long-term current use of insulin: Code(s): E11.40 - Type 2 diabetes mellitus with diabetic neuropathy, unspecified; Z79.4 - assistant terminal manager (current) use of insulin Status: Acute Assessment and Plan: glucose 126 hold Ozempic patient has a pain pump which is okay to resume A1c if here in the morning trend glucose Accu-Cheks AC and HS, hypoglycemia protocol adjust therapy as indicated (5) Hyperlipidemia: Qualifiers: Hyperlipidemia type: unspecified Qualified Code(s): E78.5 - Hyperlipidemia, unspecified Code(s): E78.5 - Hyperlipidemia, unspecified Status: Acute Assessment and Plan: continue simvastatin (6) Primary hypertension: Code(s): I10 - Essential (primary) hypertension Status: Acute Assessment and Plan: blood pressure 150/67 continue irbesartan 300 p.o. daily trend blood pressure adjust therapy as indicated Time Spent With Patient Time: 56 minutes Time with patient: Greater than 35 minutes Subjective Date/time seen: 09/18/22 08:00 Interval history: 09/18/22 0800 Patient is doing okay today. She does have significant pain in her right CVA area along with right lower quadrant. She denies any chest pain, shortness a breath. She has having some significant nausea without vomiting. Spoke with Urology who is going to evaluate her for obstructing UVJ stone. Patient currently denies any weakness or fatigue. UA does appear to be slightly infectious started patient on ceftriaxone and she is also concerned about her knee. spoke with Urology today who will come see the patient. Will get ultrasound of the bilateral kidneys. [id number]/17/[id number] THIS IS A 67-YEAR-OLD FEMALE WITH PAST MEDICAL HISTORY SIGNIFICANT FOR INSULIN-DEPENDENT DIABETES MELLITUS PATIENT HAS A AN INSULIN PUMP, HYPERTENSION, HYPOTHYROIDISM, DYSLIPIDEMIA.? Patient presents to the emergency room due to right flank pain, with radiation anteriorly medially and inferiorly to the groin area with nausea, vomiting rates her pain at 9 out 10 in intensity only relieved by pain medication has had urgency and frequency but tenesmus.? Denies any rigors, fevers, chills. Review of Systems Review of Systems: All systems reviewed & are unremarkable except as noted in HPI and below Exam Narrative: General: well-nourished, well-appearing 67-year-old female, laying in bed, uncomfortable, NARD Neuro: awake, alert and oriented x4, speech clear, no focal neuro deficits noted HEENMT: normocephalic, atraumatic, EOMI, sclerae anicteric, moist oral mucosa Respiratory: Clear to auscultation bilaterally without crackles, rhonchi or wheezes, nonlabored breathing Cardio: regular rate, regular rhythm with S1-S2 Abdomen: nondistended, normoactive bowel sounds, soft, tender to palpation on left lower quadrant : Right CVA tendern
--- NOTE | 2022-09-18 08:00 | P.PNIM_ITS ---
Progress Note: A&P Assessment and Plan (1) Ureterovesical junction (UVJ) obstruction: Code(s): N13.5 - Crossing vessel and stricture of ureter without hydronephrosis Status: Acute Assessment and Plan: * CT shows right UVJ stone with obstruction and hydronephrosis * urology consulted * NPO for now * started patient on ceftriaxone * trend urine output * pain medications on board * antiemetics on board (2) Hydronephrosis concurrent with and due to calculi of kidney and ureter: Code(s): N13.2 - Hydronephrosis with renal and ureteral calculous obstruction Status: Acute Assessment and Plan: * see above (3) Abnormal urinalysis: Code(s): R82.90 - Unspecified abnormal findings in urine Status: Acute Assessment and Plan: * UA does appear to be mildly infectious * started patient on ceftriaxone 2 g Q 24 per ID * WBC slightly elevated at 14,000 * trend labs * trend urine output (4) Type 2 diabetes mellitus with diabetic neuropathy, with long-term current use of insulin: Code(s): E11.40 - Type 2 diabetes mellitus with diabetic neuropathy, unspecified; Z79.4 - USP (current) use of insulin Status: Acute Assessment and Plan: * glucose 126 * hold Ozempic * patient has a pain pump which is okay to resume * A1c if here in the morning * trend glucose * Accu-Cheks AC and HS, hypoglycemia protocol * adjust therapy as indicated (5) Hyperlipidemia: Qualifiers: Hyperlipidemia type: unspecified Qualified Code(s): E78.5 - Hyperlipidemia, unspecified Code(s): E78.5 - Hyperlipidemia, unspecified Status: Acute Assessment and Plan: * continue simvastatin (6) Primary hypertension: Code(s): I10 - Essential (primary) hypertension Status: Acute Assessment and Plan: * blood pressure 150/67 * continue irbesartan 300 p.o. daily * trend blood pressure * adjust therapy as indicated Time Spent With Patient Time: 56 minutes Time with patient: Greater than 35 minutes Subjective Date/time seen: 09/18/22 08:00 Interval history: 09/18/22 0800 Patient is doing okay today. She does have significant pain in her right CVA area along with right lower quadrant. She denies any chest pain, shortness a breath. She has having some significant nausea without vomiting. Spoke with Urology who is going to evaluate her for obstructing UVJ stone. Patient currently denies any weakness or fatigue. UA does appear to be slightly infectious started patient on ceftriaxone and she is also concerned about her knee. spoke with Urology today who will come see the patient. Will get ultrasound of the bilateral kidneys. [id number]/17/[id number] THIS IS A 67-YEAR-OLD FEMALE WITH PAST MEDICAL HISTORY SIGNIFICANT FOR INSULIN- DEPENDENT DIABETES MELLITUS PATIENT HAS A AN INSULIN PUMP, HYPERTENSION, HYPOTHYROIDISM, DYSLIPIDEMIA.? Patient presents to the emergency room due to right flank pain, with radiation anteriorly medially and inferiorly to the groin area with nausea, vomiting rates her pain at 9 out 10 in intensity only relieved by pain medication has had urgency and frequency but tenesmus.? Denies any rigors, fevers, chills. Review of Systems Review of Systems: All systems reviewed & are unremarkable except as note
[2022-09-18] MEDS: METOCLOPRAMIDE HCL INJ 10 MG/2 ML VIAL IV PUSH (08:37)
[2022-09-18 08:53] LABS: Basophils Absolute Auto 0.1 K/mm3 (0.0-0.1); Basophils Percent Auto 0.4 % (0.2-1.2); Eosinophils Absolute Auto 0.1 K/mm3 (0-0.3); Eosinophils Percent Auto 0.4 % (0-4.4); Hematocrit 40.3 % (37.0-47.0); Hemoglobin 13.2 g/dL (12.0-15.0); Immature Granulocyte Absolute 0.07 K/mm3 (0.00-0.031); Immature Granulocyte Percent A 0.5 % (0-0.5); Lymphocytes Absolute Auto 2.41 K/mm3 (0.9-3.2); Mean Corpuscular HGB Conc 32.8 g/dl (32-36); Mean Corpuscular Hemoglobin 29.9 pg (26-34); Mean Corpuscular Volume 91.2 fl (80-100); Monocytes Absolute Auto 1.5 K/mm3 (0.1-0.6); Monocytes Percent Auto 10.7 % (2.6-8.5); Neutrophils Absolute Auto 10.1 K/mm3 (1.3-6.7); Platelet Count Result 234 k/mm3 (150-375); Red Blood Count 4.42 M/mm3 (4.2-5.4); Red Cell Distribution Width 13.1 % (11.5-14.5); White Blood Count 14.2 K/mm3 (4.5-10.0)
[2022-09-18 09:03] LABS: Alanine Aminotransferase 15 U/L (6-35); Albumin Level 3.9 g/dL (3.5-5.1); Alkaline Phosphatase 59 U/L (38-126); Anion Gap 3 mmol/L (8-16); Aspartate Amino Transferase 23 U/L (14-36); Bilirubin,Total 0.8 mg/dL (0.2-1.3); Blood Urea Nitrogen 13 mg/dL (7-17); Calcium 8.5 mg/dL (8.4-10.2); Carbon Dioxide 25 mmol/L (22-30); Chloride 105 mmol/L (98-107); Estimated CRCL calculation 47 ml/min; Estimated Glomerular Filt Rate 55; Glucose 113 mg/dL (65-110); Potassium 3.8 mmol/L (3.4-5.0); Sodium 133 mmol/L (137-145)
[2022-09-18] MEDS: cefTRIAXone 2 GM in SODIUM CHLORIDE 0.9% IV 100 ML 200 ML IVPB (09:31)
[2022-09-18 12:49] LABS: Glucose Point of Care 154 mg/dl (65-105)
--- NOTE | 2022-09-18 13:47 | WPDANESEPPF ---
Anes - Initial Pre Proc Eval Procedure: Operation Date: 09/18/22 16:30 Proposed Procedures p Cystoscopy, Right Ureteroscopy,Right Retrograde Pyelogram, Possible Right Stone Extraction, Possible Right Stent Placement,Possible Holmium Laser - Jonathan Hudson MD Date/Time: 09/18/22 13:47 Surgeon: Alessandro Hensley MD Pre Op Diagnosis: Ureterolithiasis Patient Data Age: 67 Gender: F Height: 1.52 m Weight: 88.9 kg Last Vital Signs Temp 36.2 C L 09/18/22 06:00 Pulse 57 L 09/18/22 08:20 Resp 24 H 09/18/22 08:20 BP 150/67 H 09/18/22 06:00 Pulse Ox 95 09/18/22 08:20 O2 Del Method Room Air 09/18/22 08:20 Allergies Allergy/AdvReac Type Severity Reaction Status Date / Time metformin Allergy Intermediate Rash Verified 09/17/22 16:56 poison carlitos extract Allergy Intermediate Rash Verified 09/17/22 16:56 Home Medications Medication Instructions Recorded Confirmed Type levothyroxine 112 mcg capsule 112 mcg PO QAM 01/25/21 09/17/22 History vitamin B complex 1 tablet PO DAILY 01/25/21 09/17/22 History prasterone (dhea) 50 mg capsule 50 mg PO DAILY 04/27/21 09/17/22 History (DHEA) semaglutide 0.25 mg or 0.5 mg (2 0.5 mg subcut WEEKLY 04/27/21 09/17/22 History mg/1.5 mL) subcutaneous pen injector (Ozempic) insulin lispro 100 unit/mL See Rx Instructions .Route .COMPLEX 10/05/21 09/17/22 History subcutaneous solution (Humalog U-100 Insulin) aspirin 81 mg tablet,delayed 81 mg PO DAILY 12/01/21 09/17/22 History release irbesartan 300 mg tablet 300 mg PO QAM #90 tabs 05/08/22 09/17/22 Rx linaclotide 145 mcg capsule 145 mcg PO QAM #90 caps 05/10/22 09/17/22 Rx (Linzess) cholecalciferol (vitamin D3) 1,250 50,000 unit PO WEEKLY 90 days #13 06/19/22 09/17/22 Rx mcg (50,000 unit) capsule caps montelukast 10 mg tablet 10 mg PO DAILY #90 tabs 07/26/22 09/17/22 Rx gabapentin 300 mg capsule See Rx Instructions .Route 08/28/22 09/17/22 Rx .COMPLEX #630 caps simvastatin 20 mg tablet 20 mg PO QAM #90 tabs 08/28/22 09/17/22 Rx Laboratory Tests 09/17/22 09/17/22 09/17/22 18:29 18:29 21:30 WBC 14.9 K/mm3 H K/mm3 (4.5-10.0) RBC 4.90 M/mm3 M/mm3 (4.2-5.4) Hgb 14.8 g/dL g/dL (12.0-15.0) Hct 44.5 % % (37.0-47.0) MCV 90.8 fl fl (80-100) MCH 30.2 pg pg (26-34) MCHC 33.3 g/dl g/dl (32-36) RDW 13.2 % % (11.5-14.5) Plt Count 290 k/mm3 k/mm3 (150-375) MPV 9.0 fl fl (7.4-10.4) Immature Gran % (Auto) 0.2 % % (0-0.5) Neut % (Auto) 73.8 % H % (45.5-73.1) Lymph % (Auto) 17.3 % L % (18.3-44.2) [place] % (Auto) 7.2 % % (2.6-8.5) Eos % (Auto) 0.9 % % (0-4.4) Baso % (Auto) 0.6 % % (0.2-1.2) Lymph # (Auto) 2.57 K/mm3 K/mm3 (0.9-3.2) [place] # (Auto) 1.1 K/mm3 H K/mm3 (0.1-0.6) Eos # (Auto) 0.1 K/mm3 K/mm3 (0-0.3) Baso # (Auto) 0.1 K/mm3 K/mm3 (0.0-0.1) Abs Immat Gran (auto) 0.03 K/mm3 K/mm3 (0.00-0.031) Absolute Neuts (auto) 11.0 K/mm3 H K/mm3 (1.3-6.7) Absolute Nucleated RBC 0.0 K/mm3 K/mm3 (0.0-0.012) Nucleated RBC % 0.0 % % (0.0-0.2) Sodium 138 mmol/L mmol/L (137-145) Potassium 4.0 mmol/L mmol/L (3.4-5.0) Chloride 106 mmol/L mmol/L (98-107) Carbon Dioxide 23 mmol/L mmol/L (22-30) Anion Gap 9 mmol/L mmol/L (8-16) BUN 13 mg/dL mg/dL (7-17) Creatinine 0.80 mg/dL mg/dL (0.7-1.0) Estim Creat Clear Calc 58 ml/min ml/min Estimated GFR > 60 (59 - ) Glucose 126 mg/dL H mg/dL (65-110) POC Capillary Glucose Calcium 9.3 mg/dL mg/dL (8.4-10.2) Total Bilirubin 0.8 mg/dL mg/dL (0.2-1.3) AST 27 U/L U/L (14-36) ALT 19 U/L U/L (6-35) Alkaline Phosphatase 7
[2022-09-18] MEDS: fentaNYL CITRATE INJ (*CRX) 100 MCG/2 ML VIAL 50 MCG IV PUSH (14:00)
--- NOTE | 2022-09-18 14:15 | WPDURCON ---
Assessment and Plan Assessment and plan (1) Ureteral calculus, right: Code(s): N20.1 - Calculus of ureter Status: Acute Assessment and Plan: Proceed with cysto, right retrograde, right stent placement with possible ureteroscopy stone extraction laser. Urology Consult Note HPI Date Seen: 09/18/22 Requesting Physician: Alessandro Hensley MD Primary Care Provider: Mary Reeves MD Consult Narrative Reason for consult: Right 4 mm UVJ calculus Narrative: Jael Nieto is a 67 year old female with diabetes who had intractable right renal colic and was admitted through the emergency room. She was found have a 4 mm distal right ureteral stone. Urinalysis does have some mild leukocytes present. Pain was an issue for controlled. Will plan on cysto retrograde stent placement with possible ureteroscopy with stone extraction if it is easily accessible Review of Systems Review of Systems: All systems reviewed & are unremarkable except as noted in HPI and below PMFSH Past Medical History Medical History Acute medial meniscus tear of right knee Allergic rhinitis Arthritis of right knee BMI 37.0-37.9, adult BMI 40.0-44.9, adult Contracture, right knee Diplopia FH: rheumatoid arthritis Gastroparesis H/O: CVA (cerebrovascular accident) Hyperlipidemia Hypothyroidism (acquired) Left superior oblique palsy Neuropathy Pelvic floor dysfunction Positive anti-CCP test Primary hypertension Situational mixed anxiety and depressive disorder Trochanteric bursitis, left hip Type 2 diabetes mellitus with diabetic neuropathy, with long-term current use of insulin Surgical History Surgical History History of section (~1977) History of cholecystectomy (~1991) History of D&C (~1976) History of hysterectomy History of meniscectomy of right knee (~05/05/21) Arthroscopic Partial Medial History of tubal ligation (~1979) Status post total knee replacement, right Status post total right knee replacement Family History Family History Other Asthma Cerebrovascular accident Depression Diabetes mellitus Family history of alcoholism Family history of anemia Family history of arthritis Family history of cardiovascular disease Family history of cataracts Family history of glaucoma Family history of hearing loss Family history of mental disorder Family history of migraine headaches Family history of obesity Family history of osteoporosis Hypertension Social History Social History Smoking status: Never smoker Second hand tobacco smoke exposure: No Additional smoking assessment comments: DENIES ANY FORM OF TOBACCO USE Alcohol intake: former Drinks per week: 1 Alcohol use details: SOCIALLY IN PAST Substance use: never Substance use type: does not use Other substance usage details: tried cbc gummies 2 nights for pain but nothing after Lack of Transportation: No Lack of Food: Never True Current Housing: Decline to Answer Concerned About Future Housing: No Difficulty Paying Gas/Electric Bills: No Difficulty Paying for Meds: No Currently Unemployed: No Education: Bachelor's Degree Difficulty w/ Childcare or Family Care: No Living arrangements: alone Additional living arrangements comments: Significant other. Occupation/Education: occupation Gender identity (if verbalized by the patient): Female Spiritual care concerns: No Meds Home Medications and Allergies Home Medications Medication Instructions Recorded Confirmed Type levothyroxine 112 mcg capsule 112 mcg PO QAM 01/25/21 09/17/22 History vitamin B complex 1 tablet PO DAILY 01/25/21 09/17/22 History prasterone (dhea) 50 mg capsule 50 mg PO DAILY 04/27/21
--- NOTE | 2022-09-18 14:30 | WPDHPUPDATE1 ---
History and Physical Update Update Date/Time: 09/18/22 14:30 History and Physical has been reviewed, including an updated exam of the patient. There are NO changes in the patient's condition. Risks, benefits, and alternatives have been discussed and questions answered. Patient agrees to proceed with procedure.
--- NOTE | 2022-09-18 14:56 | W.PM.PROC2 ---
Procedure Note - Detailed Date of Procedure 09/18/22 Pre-op Diagnosis Ureterolithiasis-Right ureteral calculus Post-op Diagnosis Same Procedure Performed cystoscopy, right retrograde pyelogram, right ureteroscopy with stone extraction, right ureteral stent placement 4.8 German contour Surgeon Jonathan Hudson MD Anesthesia General Description of Procedure patient is taken to the operative suite correctly identified. Once anesthesia was obtained she was placed in dorsal lithotomy position and prepped and draped usual sterile fashion. Twenty-two German scope was inserted the bladder. Wire was placed into the right ureteral orifice. I dilated the orifice with an 8/10 dilator. Rigid ureteral scope was then inserted and the stone was visualized. Using escape basket the stone was retrieved in 1 piece. This is sent for analysis. Reinspection of the ureter revealed no residual stone. Pyelogram was then performed to confirm placement of the stent. 4.8 German contour stent was then placed with the proximal end coiled in the right renal pelvis and the distal end bladder. Bladder was drained and 2% viscous lidocaine was inserted into the urethra. Patient is taken recovery stable condition. Patient most likely will be discharged home tomorrow. Stent removal in 1 week. Please send a copy of op note to my office. Urine Output 100 Drains Yes Packing No Pathology Yes Complications No immediate complications Condition Stable Disposition PACU
[2022-09-18] MEDS: LACTATED RINGERS 1,000 ML 30 ML IV CONT (15:00)
[2022-09-18 15:21] LABS: Glucose Point of Care 145 mg/dl (65-105)
[2022-09-18] MEDS: ASPIRIN 81 MG ENTERIC TABLET PO (17:10)
[2022-09-18] MEDS: MONTELUKAST SODIUM 10 MG TABLET PO (17:10)
[2022-09-18] MEDS: IRBESARTAN 150 MG TABLET 300 MG PO (17:11)
[2022-09-18] MEDS: GABAPENTIN 300 MG CAPSULE 600 MG BY MOUTH (17:13)
[2022-09-18 17:44] LABS: Glucose Point of Care 190 mg/dl (65-105)
[2022-09-18] MEDS: GABAPENTIN 300 MG CAPSULE 1200 MG BY MOUTH (21:25)
[2022-09-19 00:48] LABS: Glucose Point of Care 157 mg/dl (65-105)
[2022-09-19 04:36] VITALS: BP 136/48; PULSE 86; RESP 26; TEMP 36; O2SAT 96
[2022-09-19] MEDS: LEVOTHYROXINE SODIUM 112 MCG TABLET PO (05:22)
--- NOTE | 2022-09-19 05:49 | PC.NURSE ---
basal rate 1.5 x7 (q2H) and 1 bolus of 5.1 units for a total of 15.6 units of insulin given this shift.
[2022-09-19 06:35] LABS: Basophils Absolute Auto 0.1 K/mm3 (0.0-0.1); Basophils Percent Auto 0.8 % (0.2-1.2); Eosinophils Absolute Auto 0.3 K/mm3 (0-0.3); Eosinophils Percent Auto 2.4 % (0-4.4); Hematocrit 39.5 % (37.0-47.0); Hemoglobin 12.5 g/dL (12.0-15.0); Immature Granulocyte Absolute 0.03 K/mm3 (0.00-0.031); Immature Granulocyte Percent A 0.3 % (0-0.5); Lymphocytes Absolute Auto 2.46 K/mm3 (0.9-3.2); Lymphocytes Percent Auto 22.3 % (18.3-44.2); Mean Corpuscular HGB Conc 31.6 g/dl (32-36); Mean Corpuscular Hemoglobin 29.4 pg (26-34); Mean Corpuscular Volume 92.9 fl (80-100); Mean Platelet Volume 9.5 fl (7.4-10.4); Monocytes Absolute Auto 1.1 K/mm3 (0.1-0.6); Monocytes Percent Auto 9.9 % (2.6-8.5); Neutrophils Absolute Auto 7.1 K/mm3 (1.3-6.7); Neutrophils Percent Auto 64.3 % (45.5-73.1); Platelet Count Result 229 k/mm3 (150-375); Red Blood Count 4.25 M/mm3 (4.2-5.4); Red Cell Distribution Width 13.3 % (11.5-14.5)
[2022-09-19 06:49] LABS: Alanine Aminotransferase 13 U/L (6-35); Albumin Level 3.5 g/dL (3.5-5.1); Alkaline Phosphatase 57 U/L (38-126); Anion Gap 4 mmol/L (8-16); Aspartate Amino Transferase 20 U/L (14-36); Bilirubin,Total 0.9 mg/dL (0.2-1.3); Blood Urea Nitrogen 13 mg/dL (7-17); Calcium 8.5 mg/dL (8.4-10.2); Carbon Dioxide 26 mmol/L (22-30); Chloride 104 mmol/L (98-107); Estimated CRCL calculation 66 ml/min; Estimated Glomerular Filt Rate > 60; Glucose 111 mg/dL (65-110); Potassium 3.5 mmol/L (3.4-5.0); Sodium 134 mmol/L (137-145)
[2022-09-19 07:34] LABS: Hemoglobin A1C 6.7 % (<5.7)
[2022-09-19 08:20] LABS: Glucose Point of Care 116 mg/dl (65-105)
[2022-09-19] MEDS: VITAMIN B COMPLEX CAPSULE 1 CAP PO (08:54)
[2022-09-19] MEDS: SIMVASTATIN 20 MG TABLET PO (08:54)
[2022-09-19] MEDS: GABAPENTIN 300 MG CAPSULE BY MOUTH (08:54)
[2022-09-19] MEDS: LINACLOTIDE 145 MCG CAPSULE PO (08:54)
[2022-09-19] MEDS: cefTRIAXone 2 GM in SODIUM CHLORIDE 0.9% IV 100 ML 200 ML IVPB (08:58)
[2022-09-19 09:24] VITALS: O2SAT 94
[2022-09-19 11:37] LABS: Glucose Point of Care 123 mg/dl (65-105)
[2022-09-19 14:00] VITALS: BP 119/69; PULSE 76; RESP 18; TEMP 36.6; O2SAT 96
--- NOTE | 2022-09-19 14:06 | WPDANESPN ---
Anes - Prog Note Post-Op Date/Time: 09/19/22 14:06 Cardiovascular status: normal Respiratory status: normal Airway patency: baseline Mental status: baseline Post-Op hydration status: normal Vital Signs: Last Vital Signs Temp 36.0 C L 09/19/22 04:36 Pulse 86 09/19/22 04:36 Resp 26 H 09/19/22 04:36 BP 136/48 L 09/19/22 04:36 Pulse Ox 94 09/19/22 09:24 O2 Del Method Room Air 09/19/22 09:24 O2 Flow Rate 6 09/18/22 15:15 Pain Score (VAS): 09/28 I/O: Intake & Output 09/18/22 09/19/22 09/19/22 23:59 07:59 15:59 Intake Total 770 300 120 Output Total 200 1100 Balance 570 -800 120 Laboratory Tests 09/19/22 05:49 09/19/22 05:49 09/18/22 09/18/22 09/18/22 15:19 17:17 20:46 WBC RBC Hgb Hct MCV MCH MCHC RDW Plt Count MPV Immature Gran % (Auto) Neut % (Auto) Lymph % (Auto) [place] % (Auto) Eos % (Auto) Baso % (Auto) Lymph # (Auto) [place] # (Auto) Eos # (Auto) Baso # (Auto) Abs Immat Gran (auto) Absolute Neuts (auto) Absolute Nucleated RBC Nucleated RBC % Sodium Potassium Chloride Carbon Dioxide Anion Gap BUN Creatinine Estim Creat Clear Calc Estimated GFR Glucose POC Capillary Glucose 145 H 190 H 157 H Hemoglobin A1c Calcium Total Bilirubin AST ALT Alkaline Phosphatase Total Protein Albumin 09/19/22 09/19/22 09/19/22 05:49 05:49 05:49 WBC 11.0 H RBC 4.25 Hgb 12.5 Hct 39.5 MCV 92.9 MCH 29.4 MCHC 31.6 L RDW 13.3 Plt Count 229 MPV 9.5 Immature Gran % (Auto) 0.3 Neut % (Auto) 64.3 Lymph % (Auto) 22.3 [place] % (Auto) 9.9 H Eos % (Auto) 2.4 Baso % (Auto) 0.8 Lymph # (Auto) 2.46 [place] # (Auto) 1.1 H Eos # (Auto) 0.3 Baso # (Auto) 0.1 Abs Immat Gran (auto) 0.03 Absolute Neuts (auto) 7.1 H Absolute Nucleated RBC 0.0 Nucleated RBC % 0.0 Sodium 134 L Potassium 3.5 Chloride 104 Carbon Dioxide 26 Anion Gap 4 L BUN 13 Creatinine 0.70 Estim Creat Clear Calc 66 Estimated GFR > 60 Glucose 111 H POC Capillary Glucose Hemoglobin A1c 6.7 H Calcium 8.5 Total Bilirubin 0.9 AST 20 ALT 13 Alkaline Phosphatase 57 Total Protein 6.0 L Albumin 3.5 09/19/22 09/19/22 07:51 11:31 WBC RBC Hgb Hct MCV MCH MCHC RDW Plt Count MPV Immature Gran % (Auto) Neut % (Auto) Lymph % (Auto) [place] % (Auto) Eos % (Auto) Baso % (Auto) Lymph # (Auto) [place] # (Auto) Eos # (Auto) Baso # (Auto) Abs Immat Gran (auto) Absolute Neuts (auto) Absolute Nucleated RBC Nucleated RBC % Sodium Potassium Chloride Carbon Dioxide Anion Gap BUN Creatinine Estim Creat Clear Calc Estimated GFR Glucose POC Capillary Glucose 116 H 123 H Hemoglobin A1c Calcium Total Bilirubin AST ALT Alkaline Phosphatase Total Protein Albumin Post-procedural complaints: none Patient Feedback: Patient satisfied with anesthetic care.
--- NOTE | 2022-09-19 14:12 | PM.DS ---
DS: Admitting Diagnosis Discharge Date 09/19/2022 Admitting Diagnosis ureteral stone DS: Discharge Diagnosis Discharge Diagnosis (1) Ureterovesical junction (UVJ) obstruction: Code(s): N13.5 - Crossing vessel and stricture of ureter without hydronephrosis Status: Acute Assessment and Plan: Pt presented with N/V and sharp abdominal pain. CT of the abdomen/pelvis showed right UVJ stone with obstruction and hydronephrosis. Pt seen in consultation by urology. Underwent cystoscopy with stone extraction and right stent placement on 09/18/22. Will follow up with urology in 1 week. (2) Hydronephrosis concurrent with and due to calculi of kidney and ureter: Code(s): N13.2 - Hydronephrosis with renal and ureteral calculous obstruction Status: Acute Assessment and Plan: See above (3) Abnormal urinalysis: Code(s): R82.90 - Unspecified abnormal findings in urine Status: Acute Assessment and Plan: UA slightly abnormal on presentation but no other signs/symptoms to indicate UTI. Likely related to UVJ stone. Urine culture pending at time of discharge. Will continue PO macrobid for 7 days per urology recommendations given recent instrumentation. Follow up on culture results outpatient with urology. (4) Type 2 diabetes mellitus with diabetic neuropathy, with long-term current use of insulin: Code(s): E11.40 - Type 2 diabetes mellitus with diabetic neuropathy, unspecified; Z79.4 - buttermaker helper (current) use of insulin Status: Acute Assessment and Plan: A1c is 6.7. Blood sugars stable. Continue home Ozempic and insulin regimen. (5) Primary hypertension: Code(s): I10 - Essential (primary) hypertension Status: Acute Assessment and Plan: Blood pressures stable. Continue home antihypertensives. DS: Summary Hospital Course Hospital Course: date of admission: 09/17/2022 date of discharge: 09/19/2022 Pamela Nieto is a 67-year-old female with a history of type 2 diabetes mellitus, anxiety, depression, history of CVA, hypothyroidism, hyperlipidemia, and hypertension who presented to the emergency department on 09/17/2022 with complaints of right flank pain which started earlier in the day. She was having difficulty urinating. On presentation to the ED, she was afebrile, additional vital signs stable, WBC 14.9, additional laboratory workup relatively unremarkable, UA showed 3+ blood with 1+ leuk esterase, CT of the abdomen/ pelvis showed 4 mm right UVJ stone with moderate obstructive uropathy, renal ultrasound revealed mild right hydronephrosis. She was admitted to the hospitalist service for further evaluation management was seen in consultation by Urology. She underwent cystoscopy with right retrograde pyelogram, ureteroscopy with stone extraction and right stent placement on 09/18/2022. She tolerated this procedure well. she will continue p.o. Macrobid for a 7 day course and follow-up with urology as an outpatient in 1 week for stent removal. Patient was feeling much improved and felt comfortable with plans for discharge home. She was discharged in hemodynamically stable condition on 09/19/2022. Time Spent with Patient Time attestation: Total time spent providing and/or coordinating discharge services: 40 minutes Exam Narrative: General: well-nourished well-appearing 67-year-old female, sitting up in bed, comfortable, NARD Neuro: awake, alert and oriented x4, speech clear, no focal neuro deficits noted HEENMT: normocephalic, atraumatic, EOMI, sclerae anicteric, moist oral mucosa Respiratory: clear to auscultation bilaterally, nonlabored breathing Cardio: regular rate, regular rhythm with S1-S2 Abdomen: nondistended, normoactive bowel sounds, soft, nontender to palpation : No CVA tenderness Extremities: no edema, erythema, or tenderness to palpation, DP pulses 2+ bilaterally Skin: no rashes or lesions, warm and dry Psych:
[2022-09-19] MEDS: ASPIRIN 81 MG ENTERIC TABLET PO (14:15)
[2022-09-19] MEDS: MONTELUKAST SODIUM 10 MG TABLET PO (14:15)
--- NOTE | 2022-09-19 16:17 | WPDUROPN2 ---
Progress Note: A&P Assessment and Plan (1) Ureteral calculus, right: Code(s): N20.1 - Calculus of ureter Status: Acute Assessment and Plan: F/U next week with Dr. Hudson for a stent removal. Discharge home with antibiotics since urine culture is not yet resulted. Subjective Subjective Date/Time Seen: 09/19/22 16:17 Cystoscopy, right retrograde pyelogram, right ureteroscopy stone extraction right ureteral stent placement. Patient doing well. She has no post op pain and is tolerating diet and activity well. Post Op day: 1 Review of Systems Cardiovascular: Cardiovascular: Denies chest pain Respiratory: Respiratory: Reports no additional respiratory complaints Gastrointestinal: Gastrointestinal: Denies abdominal pain, Denies nausea and Denies vomiting Genitourinary: Genitourinary: Denies dysuria, Denies flank pain, Denies urinary incontinence, Denies urinary hesitancy and Denies urinary urgency Exam Const: General: cooperative; No comfortable Resp: Effort & Inspection: normal respiratory effort Cardio: Rate: regular rate : General: No no CVA tenderness Extrem: Right lower extremity: no edema Left lower extremity: no edema Objective Data Vital Signs Vital Signs: Vital Signs - 24 hr 09/18/22 16:30 09/18/22 16:45 09/18/22 16:55 Temperature 98.2 F 97.8 F Pulse Rate 82 78 74 Respiratory Rate 18 18 18 Blood Pressure 150/60 H 152/60 H 154/56 H Pulse Oximetry 93 94 95 Oxygen Delivery Room Air Room Air 09/18/22 17:10 09/18/22 18:40 09/18/22 17:40 Temperature 98.1 F 98 F 98.1 F Pulse Rate 75 89 81 Respiratory Rate 16 16 18 Blood Pressure 145/53 H 132/55 L 130/47 L Pulse Oximetry 96 93 95 Oxygen Delivery 09/18/22 22:00 09/18/22 20:00 09/19/22 04:36 Temperature 97.7 F 96.8 F L Pulse Rate 80 86 Respiratory Rate 16 26 H Blood Pressure 113/61 136/48 L Pulse Oximetry 93 93 96 Oxygen Delivery Room Air 09/19/22 09:24 09/19/22 14:00 Temperature 97.9 F Pulse Rate 76 Respiratory Rate 18 Blood Pressure 119/69 Pulse Oximetry 94 96 Oxygen Delivery Room Air Intake/Output Intake/Output: Intake & Output 09/16/22 09/17/22 09/18/22 09/19/22 23:59 23:59 23:59 23:59 Intake Total 1100 1020 760 Output Total 800 1100 Balance 1100 220 -340 Meds/Results Medications: Active Medications Generic Name Dose Route Start Last Admin Trade Name Freq PRN Reason Stop Dose Admin Aspirin 81 mg 09/18/22 09:00 09/19/22 14:15 Aspirin 81 Mg Enteric Tablet PO 81 mg DAILY ABDIRIZAK Administration Dextrose 12.5 gm 09/18/22 11:13 Dextrose 50% 25 Gm/50 Ml Syringe IV PUSH PRN PRN Hypoglycemia Protocol Ergocalciferol 50,000 units 09/23/22 09:00 Ergocalciferol 50,000 Units Capsule PO Nieto@0900 ABDIRIZAK Gabapentin 300 mg 09/18/22 09:00 09/19/22 08:54 Gabapentin 300 Mg Capsule BY MOUTH 300 mg DAILY ABDIRIZAK Administration Gabapentin 600 mg 09/18/22 17:00 09/18/22 17:13 Gabapentin 300 Mg Capsule BY MOUTH 600 mg DAILY@1700 ABDIRIZAK Administration Gabapentin 1,200 mg 09/18/22 21:00 09/18/22 21:25 Gabapentin 300 Mg Capsule BY MOUTH 1,200 mg HS ABDIRIZAK Administration Glucagon 1 mg 09/18/22 11:13 Glucagon For Inj 1 Mg Vial IM PRN PRN Hypoglycemia Protocol Glucose 15 gm 09/18/22 11:13 Glucose Oral Gel 15 Gm Of Glucse In 37.5 Gm Tube PO PRN PRN Hypoglycemia Protocol Hydromorphone HCl 1 mg 09/18/22 04:07 09/18/22 08:23 Hydromorphone Hcl Inj (*Crx) 1 Mg/Ml Syr IV PUSH 1 mg Q3H PRN Administration Pain Rated 7-10 Ceftriaxone Sodium 2 gm/ 100 mls @ 200 mls/hr 09/18/22 09:00 09/19/22 09:28 Sodium Chloride IVPB Infused Q24H ABDIRIZAK Infusion Dextrose 1,000 mls @ 100 mls/hr 09/18/22 11:13 Dextrose 5% 1,000 Ml IVPB PRN PRN Hypoglycemia Protocol Irbesartan 300 mg 09/18/22 09:00 09/19/22 14:29 Irbesartan 150 Mg Tablet PO Not Given Q
== END 2022-09-19 16:00 | disposition home or self-care (01) ==
LOC: ANHED 18:40 → ANH3MEDSUR 09-18 08:37
PROVIDERS: Nurse Practitioner; Urology; Admitting Provider Internal Medicine; Emergency Provider Emergency Medicine; PCP Family Medicine; Visit Provider Physician Assistant
PROC: (CPT 52352; principal; 2022-09-18 16:30)
DX: N13.5 Crossing vessel and stricture of ureter without hydronephrosis (principal); N13.2 Hydronephrosis with renal and ureteral calculous obstruction; R82.90 Unspecified abnormal findings in urine; E11.40 Type 2 diabetes mellitus with diabetic neuropathy, unspecified; E78.5 Hyperlipidemia, unspecified; I10 Essential (primary) hypertension; Z20.822 Contact with and (suspected) exposure to COVID-19; M17.11 Unilateral primary osteoarthritis, right knee; F43.23 Adjustment disorder with mixed anxiety and depressed mood; E03.9 Hypothyroidism, unspecified; R19.7 Diarrhea, unspecified; Z96.41 Presence of insulin pump (external) (internal); Z79.4 Long term (current) use of insulin; Z79.52 Long term (current) use of systemic steroids; Z86.73 Personal history of transient ischemic attack (TIA), and cerebral infarction without residual deficits; Z79.82 Long term (current) use of aspirin; Z79.85 Long-term (current) use of injectable non-insulin antidiabetic drugs; Z79.899 Other long term (current) drug therapy; Z82.61 Family history of arthritis; Z83.3 Family history of diabetes mellitus; Z82.49 Family history of ischemic heart disease and other diseases of the circulatory system
CPT/HCPCS: 52352; 52332; 36415; 74176; 74420; 76775; 80053; 81001; 82365; 82948; 83036; 83690; 85025; 87086; 87088; 88300; 96361; 96365; 96366; 96375; 96376; 99285; A9270; C1769; C2617; G0378; J0131; J0696; J0780; J1170; J2405; J2704; J2765; J3010; J7030; J7120; U0003; U0005

== ENCOUNTER 2022-11-09 14:23 | Outpatient (CLI) | payer BC, SELFPAY ==
[2022-11-09 16:15] LABS: CRP 0.8 mg/dL (<1.0)
[2022-11-09 16:20] LABS: Erythrocyte Sedimentation Rate 14 mm/hr (0-20)
== END 2022-11-09 14:24 | disposition home or self-care (01) ==
LOC: ANHLAB 14:25
PROVIDERS: PCP Family Medicine; Visit Provider Orthopaedic Surgery
DX: T84.84XA Pain due to internal orthopedic prosthetic devices, implants and grafts, initial encounter (principal); Z96.651 Presence of right artificial knee joint
CPT/HCPCS: 36415; 85652; 86140

== ENCOUNTER 2022-11-29 08:17 | Outpatient (CLI) | payer BC, SELFPAY ==
--- NOTE | 2022-11-29 08:26 | ECG_ITS ---
Measurements Intervals [place] Rate: 61 P: 13 OK: 198 QRS: -21 QRSD: 93 T: 1 QT: 431 QTc: 436 Interpretive Statements SINUS RHYTHM LOW QRS VOLTAGE IN PRECORDIAL LEADS POOR R WAVE PROGRESSION, ANTERIOR LEADS BORDERLINE T WAVE ABNORMALITY- INFERIOR LEADS BASELINE ARTIFACT- I, II, III, AVR, AVL, AVF BORDERLINE ECG COMPARED TO ECG 11/26/2021 18:46:39 NO SIGNIFICANT CHANGES Electronically Signed On 11-29-2022 9:00:24 CDT by Rene Rojas D.O.
[2022-11-29 08:58] LABS: Anion Gap 1 mmol/L (8-16); Blood Urea Nitrogen 11 mg/dL (7-17); Carbon Dioxide 29 mmol/L (22-30); Chloride 107 mmol/L (98-107); Estimated Glomerular Filt Rate > 60; Glucose 107 mg/dL (65-110); Potassium 4.1 mmol/L (3.4-5.0); Sodium 137 mmol/L (137-145)
== END 2022-11-29 08:18 | disposition home or self-care (01) ==
PROVIDERS: Anesthesiology; PCP Family Medicine; Visit Provider Orthopaedic Surgery
DX: E11.40 Type 2 diabetes mellitus with diabetic neuropathy, unspecified (principal); Z79.4 Long term (current) use of insulin; Z01.818 Encounter for other preprocedural examination; R94.31 Abnormal electrocardiogram [ECG] [EKG]
CPT/HCPCS: 36415; 80048; 93005

== ENCOUNTER 2022-12-14 03:27 | Day surgery (SDC) | payer BC, SELFPAY ==
[2022-11-27 15:13] VITALS: BMI 37.1
--- NOTE | 2022-11-27 15:19 | PC.NURSE ---
PRE-OP INSTRUCTIONS, PLEASE READ CAREFULLY Report to the Outpatient Waiting Room, entrance under the green pavilion located off [facility], at time _1130_ on date _12/04/22_. Planned Procedure Time: _1:30 PM_. Time changes happen often and if your time is changed the preop area will call you the afternoon before. - You and your visitor will be asked to self-screen and do not enter if you have any COVID symptoms. - A mask is optional within the hospital at this time. Patients may have clear liquids (water, carbonated beverages, clear teas, apple juice) until 3 hours prior to surgery (1030 AM) with a maximum of 20 ounces. - No food from midnight until time of surgery Take the following medications with a SIP of water the morning of surgery: _GABAPENTIN, LEVOTHYROXINE - IF INSULIN NEEDED, TAKE 1/2 AM INSULIN DOSE_ DO NOT STOP ANY OF YOUR OTHER PRESCRIPTION MEDICATIONS PRIOR TO SURGERY ?EXCEPT THE FOLLOWING Medications to discontinue per DR. العراقي - _ASPIRIN 7 DAYS PRIOR TO SURGERY, Date to take last dose 11/27/22_ Please no make-up, nail israeli, hairspray, perfume, deodorant, or body powder the day of surgery. No jewelry (including any body piercings) or valuables the day of surgery, leave them at home. Please take a shower or bath the night before, or the morning of, surgery with an antibacterial soap. Wear comfortable, loose fitting clothing. - Jewelry must be removed prior to entering the operating room. Rings and piercings that are not removed may be cut off. - The hospital will not accept responsibility for valuables. - Please leave all valuables, including medications, at home the day of surgery. If you are going home after surgery, a licensed bus driver school must drive you home. - NO public transportation without another adult if you receive anesthesia. - We recommend that an adult stay with you for 24 hours following discharge. - We also recommend that you do not drive, make important decision, drink alcoholic beverages, or take any drugs that were not prescribed by your health care provider for at least 24 hours after your discharge time. Follow any additional instructions given to you from your surgeon. If you or anyone in your household have experienced Covid symptoms in the past week, please notify your surgeon or the nurse liaison at the phone number below for possible testing. Telephone instructions given to _PATIENT_and asked if any additional questions and then verbalized understanding. Patient advised to call surgeon office or pre surgery nurse liaison [phone] if any additional questions.
--- NOTE | 2022-12-06 15:09 | PC.NURSE ---
Addendum entered by Tatyana Rojas RN 12/06/22 15:16: RESCHEDULED- NEW DATE/TIME, PT RELAYS UNDERSTANDING TO ARRIVE AT 10:00AM ON 12/14/22 FOR 12:00PM SURGERY START TIME. NO CHANGE IN MEDS, ALLERGIES OR PMH. INSTR TO FOLLOW PRIOR INSTRUCTIONS OF MEDS TO TAKE AND MEDS TO HOLD, SHE RELAYS UNDERSTANDING. Original Note: Report to the Outpatient Waiting Room, entrance under the green pavilion located off [facility], at time __10:00AM on date __12/14/22 . Planned Procedure Time: _12:00PM . Time changes happen often and if your time is changed the preop area will call you the afternoon before. - You and your visitor will be asked to self-screen and do not enter if you have any COVID symptoms. - A mask is optional within the hospital at this time. Patients may have clear liquids (water, carbonated beverages, clear teas, apple juice) until 3 hours prior to surgery with a maximum of 20 ounces. - No food from midnight until time of surgery Take the following medications with a SIP of water the morning of surgery: ___GABAPENTIN, LEVOTHYROXINE. IF INSULIN NEEDED IN MORNING, TAKE 1/2 DOSE DO NOT STOP ANY OF YOUR OTHER PRESCRIPTION MEDICATIONS PRIOR TO SURGERY ?EXCEPT THE FOLLOWING Medications to discontinue per physician ___HOLD ASPIRIN 7 DAYS PRE-OP-Date to take last dose_12/07/22 Please no make-up, nail mosotho, hairspray, perfume, deodorant, or body powder the day of surgery. No jewelry (including any body piercings) or valuables the day of surgery, leave them at home. Please take a shower or bath the night before, or the morning of, surgery with an antibacterial soap. Wear comfortable, loose fitting clothing. Children are encouraged to wear pajamas. - Jewelry must be removed prior to entering the operating room. Rings and piercings that are not removed may be cut off. - The hospital will not accept responsibility for valuables. - Please leave all valuables, including medications, at home the day of surgery. If you are going home after surgery, a licensed fence post driver must drive you home. - NO public transportation without another adult if you receive anesthesia. - We recommend that an adult stay with you for 24 hours following discharge. - We also recommend that you do not drive, make important decision, drink alcoholic beverages, or take any drugs that were not prescribed by your health care provider for at least 24 hours after your discharge time. Follow any additional instructions given to you from your surgeon. If you or anyone in your household have experienced Covid symptoms in the past week, please notify your surgeon or the nurse liaison at the phone number below for possible testing. Telephone instructions given to ___PATIENT and asked if any additional questions and then verbalized understanding. Patient advised to call surgeon office or pre surgery nurse liaison [phone] if any additional questions.
--- NOTE | 2022-12-13 17:22 | WPDANESEPPF ---
Anes - Initial Pre Proc Eval Procedure: Operation Date: 12/14/22 12:00 Proposed Procedures p Right Total Knee Manipulation - Benny Harrell MD Date/Time: 12/13/22 17:22 Surgeon: Benny Harrell MD Pre Op Diagnosis: right knee contracture Patient Data Age: 67 Gender: F Height: 1.52 m Weight: 86.36 kg Allergies Allergy/AdvReac Type Severity Reaction Status Date / Time metformin Allergy Intermediate Rash Verified 12/14/22 11:38 poison carlitos extract Allergy Intermediate Rash Verified 12/14/22 11:38 Home Medications Medication Instructions Recorded Confirmed Type levothyroxine 112 mcg capsule 112 mcg PO QAM 01/25/21 12/14/22 History vitamin B complex 1 tablet PO DAILY 01/25/21 12/06/22 History prasterone (dhea) 50 mg capsule 50 mg PO DAILY 04/27/21 12/06/22 History (DHEA) semaglutide 0.25 mg or 0.5 mg (2 0.5 mg subcut WEEKLY 04/27/21 12/06/22 History mg/1.5 mL) subcutaneous pen injector (Ozempic) insulin lispro 100 unit/mL See Rx Instructions .Route .COMPLEX 10/05/21 12/06/22 History subcutaneous solution (Humalog U-100 Insulin) aspirin 81 mg tablet,delayed 81 mg PO DAILY 12/01/21 12/06/22 History release irbesartan 300 mg tablet 300 mg PO QAM #90 tabs 05/08/22 12/06/22 Rx linaclotide 145 mcg capsule 145 mcg PO QAM #90 caps 05/10/22 12/06/22 Rx (Linzess) cholecalciferol (vitamin D3) 1,250 50,000 unit PO WEEKLY 90 days #13 06/19/22 12/06/22 Rx mcg (50,000 unit) capsule caps montelukast 10 mg tablet 10 mg PO DAILY #90 tabs 07/26/22 12/06/22 Rx gabapentin 300 mg capsule See Rx Instructions .Route 08/28/22 12/06/22 Rx .COMPLEX #630 caps simvastatin 20 mg tablet 20 mg PO QAM #90 tabs 08/28/22 12/06/22 Rx Patient hx anesthesia problems: none Family hx anesthesia problems: none Results Review: All pre-operative results and documents have been reviewed as part of the pre-operative evaluation. [facility] Past Medical History Medical History (Updated 11/27/22 @ 10:23 by Dolly Orellana MA) Acute medial meniscus tear of right knee Allergic rhinitis Arthritis of right knee BMI 37.0-37.9, adult BMI 40.0-44.9, adult Contracture, right knee Diplopia FH: rheumatoid arthritis Gastroparesis H/O: CVA (cerebrovascular accident) Hyperlipidemia Hypothyroidism (acquired) Left superior oblique palsy Neuropathy Pelvic floor dysfunction Positive anti-CCP test Primary hypertension Situational mixed anxiety and depressive disorder Trochanteric bursitis, left hip Type 2 diabetes mellitus with diabetic neuropathy, with long-term current use of insulin Surgical History Surgical History (Updated 11/09/22 @ 13:31 by Deysi Rankin MA) History of section (~1977) History of cholecystectomy (~1991) History of D&C (~1976) History of hysterectomy History of meniscectomy of right knee (~05/05/21) Arthroscopic Partial Medial History of tubal ligation (~1979) Status post total knee replacement, right Status post total right knee replacement Family History Family History Other Asthma Cerebrovascular accident Depression Diabetes mellitus Family history of alcoholism Family history of anemia Family history of arthritis Family history of cardiovascular disease Family history of cataracts Family history of glaucoma Family history of hearing loss Family history of mental disorder Family history of migraine headaches Family history of obesity Family history of osteoporosis Hypertension Social History Social History Smoking status: Never smoker Second hand tobacco smoke exposure: No Additional smoking assessment comments: DENIES ANY FORM OF TOBACCO USE Alcohol intake: never Drinks per week: 1 Alcohol use details: SOCIALLY IN PAST Substance use: never Substance use type: does not use Other substance usage details: tried cbc gummies 2 ni
[2022-12-14] MEDS: LACTATED RINGERS 1,000 ML 30 ML IV CONT (10:45)
[2022-12-14] MEDS: ACETAMINOPHEN 500 MG TABLET 1000 MG PO (10:45)
[2022-12-14 11:25] LABS: Glucose Point of Care 95 mg/dl (65-105)
[2022-12-14 11:40] VITALS: BP 165/71; PULSE 57; RESP 20; TEMP 36.4; O2SAT 96
--- NOTE | 2022-12-14 12:05 | PM.HPGS ---
History of Present Illness History of Present Illness Consent: Risks, benefits, and alternatives have been discussed and questions answered. Patient agrees to proceed with procedure. Chief complaint: right knee contracture Narrative: Jael Nieto is a 67 year old female s/p total knee arthroplasty complicated by arthrofibrosis and subsequent manipulation. She continues to have fairly constant pain. This is severe and limiting her quality of life. Pain is rather diffuse about the knee. Complains of stiffness, marked by difficulty getting in and out of cars. Review of Systems Review of Systems: All systems reviewed & are unremarkable except as noted in HPI and below PMFSH Past Medical History Medical History Acute medial meniscus tear of right knee Allergic rhinitis Arthritis of right knee BMI 37.0-37.9, adult BMI 40.0-44.9, adult Contracture, right knee Diplopia FH: rheumatoid arthritis Gastroparesis H/O: CVA (cerebrovascular accident) Hyperlipidemia Hypothyroidism (acquired) Left superior oblique palsy Neuropathy Pelvic floor dysfunction Positive anti-CCP test Primary hypertension Situational mixed anxiety and depressive disorder Trochanteric bursitis, left hip Type 2 diabetes mellitus with diabetic neuropathy, with long-term current use of insulin Surgical History Surgical History History of section (~1977) History of cholecystectomy (~1991) History of D&C (~1976) History of hysterectomy History of meniscectomy of right knee (~05/05/21) Arthroscopic Partial Medial History of tubal ligation (~1979) Status post total knee replacement, right Status post total right knee replacement Family History Family History Other Asthma Cerebrovascular accident Depression Diabetes mellitus Family history of alcoholism Family history of anemia Family history of arthritis Family history of cardiovascular disease Family history of cataracts Family history of glaucoma Family history of hearing loss Family history of mental disorder Family history of migraine headaches Family history of obesity Family history of osteoporosis Hypertension Social History Social History Smoking status: Never smoker Second hand tobacco smoke exposure: No Additional smoking assessment comments: DENIES ANY FORM OF TOBACCO USE Alcohol intake: never Drinks per week: 1 Alcohol use details: SOCIALLY IN PAST Substance use: never Substance use type: does not use Other substance usage details: tried cbc gummies 2 nights for pain but nothing after Lack of Transportation: No Lack of Food: Never True Current Housing: Decline to Answer Concerned About Future Housing: No Difficulty Paying Gas/Electric Bills: No Difficulty Paying for Meds: No Currently Unemployed: No Education: Bachelor's Degree Difficulty w/ Childcare or Family Care: No Living arrangements: alone Additional living arrangements comments: Significant other. Occupation/Education: occupation Gender identity (if verbalized by the patient): Female Spiritual care concerns: No Meds Home Medications and Allergies Home Medications Medication Instructions Recorded Confirmed Type levothyroxine 112 mcg capsule 112 mcg PO QAM 01/25/21 12/14/22 History vitamin B complex 1 tablet PO DAILY 01/25/21 12/06/22 History prasterone (dhea) 50 mg capsule 50 mg PO DAILY 04/27/21 12/06/22 History (DHEA) semaglutide 0.25 mg or 0.5 mg (2 0.5 mg subcut WEEKLY 04/27/21 12/06/22 History mg/1.5 mL) subcutaneous pen injector (Ozempic) insulin lispro 100 unit/mL See Rx Instructions .Route .COMPLEX 10/05/21 12/06/22 History subcutaneous solution (Humalog U-100 Insulin) aspirin 81 mg tablet,
--- NOTE | 2022-12-14 12:08 | WPDHPUPDATE1 ---
History and Physical Update Update Date/Time: 12/14/22 12:08 History and Physical has been reviewed, including an updated exam of the patient. There are NO changes in the patient's condition. Risks, benefits, and alternatives have been discussed and questions answered. Patient agrees to proceed with procedure.
[2022-12-14 12:10] LABS: Glucose Point of Care 96 mg/dl (65-105)
[2022-12-14] MEDS: ceFAZolin 2 GM/D5W 50 ML 2 GM/50 ML BAG IVPB (12:31)
--- NOTE | 2022-12-14 12:31 | W.PM.PROC2 ---
Procedure Note - Detailed Date of Procedure 12/14/22 Pre-op Diagnosis right knee contracture Post-op Diagnosis Same Procedure Performed Right knee manipulation under anesthesia and steroid injection (Depo Medrol) Surgeon Benny Harrell MD Anesthesia General Description of Procedure Anesthetic administered. Gentle persistent manipulation performed. Flexion started at 95 and increased to 115-120. Sterile prep of the superolateral joint. Injection of 80mg Depo medrol and 4ml 0.5% Marcaine. Estimated Blood Loss 0 Complications No immediate complications Condition Stable Disposition PACU [facility] Billing Surgery - Charge Forward: Surgery Billing
[2022-12-14] MEDS: methylPREDNISolone ACETATE 80 MG/ML VIAL I-ARTICULR (12:47)
[2022-12-14 12:56] VITALS: BP 126/60; PULSE 59; RESP 16; O2SAT 99
[2022-12-14 13:08] LABS: Glucose Point of Care 126 mg/dl (65-105)
[2022-12-14 13:25] VITALS: BP 135/64; PULSE 56
== END 2022-12-14 13:53 | disposition home or self-care (01) ==
PROVIDERS: PCP Family Medicine; Visit Provider Orthopaedic Surgery
PROC: (CPT 27570; principal; 2022-12-14 12:00)
DX: M24.561 Contracture, right knee (principal); E78.5 Hyperlipidemia, unspecified; E03.9 Hypothyroidism, unspecified; E11.40 Type 2 diabetes mellitus with diabetic neuropathy, unspecified; I10 Essential (primary) hypertension; F41.8 Other specified anxiety disorders; E11.43 Type 2 diabetes mellitus with diabetic autonomic (poly)neuropathy; K31.84 Gastroparesis; E66.9 Obesity, unspecified; Z68.39 Body mass index [BMI] 39.0-39.9, adult; Z79.4 Long term (current) use of insulin; Z79.899 Other long term (current) drug therapy; Z79.82 Long term (current) use of aspirin; Z86.73 Personal history of transient ischemic attack (TIA), and cerebral infarction without residual deficits; T84.84XA Pain due to internal orthopedic prosthetic devices, implants and grafts, initial encounter; Z96.651 Presence of right artificial knee joint; Y83.8 Other surgical procedures as the cause of abnormal reaction of the patient, or of later complication, without mention of misadventure at the time of the procedure
CPT/HCPCS: 27570; 82948; A9270; J0690; J1040; J3010; J7120

== ENCOUNTER 2023-01-04 08:22 | Outpatient (CLI) | payer BC, SELFPAY ==
--- NOTE | ~2023-01-04 | MM_ITS ---
EXAMINATION: MM screening joni BI w gricelda HISTORY: Screening mammogram TECHNIQUE: Craniocaudal and mediolateral oblique 3-D tomosynthesis images were obtained and synthetic 2-D images were generated. CAD analysis was submitted and interpreted. COMPARISON: 07/20/2021 diagnostic left mammogram and limited left breast ultrasound examination 07/10/2021, 07/09/2020, 06/09/2019 bilateral screening mammogram examinations BREAST PARENCHYMAL COMPOSITION: There are scattered areas of fibroglandular density. FINDINGS: There is a biopsy marker in the left subareolar area; history of prior benign left breast b iopsy. There is no evidence of suspicious mass, calcification, or architectural distortion to suggest malignancy in either breast. There has been no suspicious interval change. IMPRESSION: 1. No mammographic evidence of malignancy. 2. Recommend routine screening mammography in one year. BI-RADS Category 1: Negative Reviewed, dictated and finalized at location A.
== END 2023-01-04 08:23 | disposition home or self-care (01) ==
PROVIDERS: PCP Family Medicine; Visit Provider Physician Assistant
DX: Z12.31 Encounter for screening mammogram for malignant neoplasm of breast (principal)
CPT/HCPCS: 77063; 77067

== ENCOUNTER 2023-07-21 09:56 | Emergency (ER) | payer BC, SELFPAY ==
--- NOTE | ~2023-07-21 | XR_ITS ---
EXAMINATION: XR chest 2V DATE: 07/21/2023 11:37 INDICATION: Cough. Wheezing. TECHNIQUE: Frontal and lateral views of the chest were obtained. COMPARISON: Chest 2 views 09/06/2004, CT abdomen and pelvis 09/17/2022 FINDINGS: There is mild atelectasis at left lung base. No pleural effusion or pneumothorax. The heart size is normal. There are surgical clips in the abdomen. IMPRESSION: 1. Mild atelectasis at left lung base. Reviewed, dictated and finalized at location A. 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
[2023-07-21 10:16] VITALS: BP 150/54; PULSE 67; RESP 16; TEMP 35.9; O2SAT 99
--- NOTE | 2023-07-21 11:28 | ED.GENADULT ---
HPI - General Adult General Chief complaint: Upper Respiratory Infection Stated complaint: Cough,Congestion Source: patient Mode of arrival: ambulatory Limitations: no limitations History of Present Illness HPI narrative: Patient presents for evaluation of respiratory symptoms for the last 2 days. On of last week she had a room painted in her home. The day after she developed some sinus congestion and postnasal drainage. She now has a productive cough of green/yellow sputum. She woke from sleep this morning with wheezing present. She denies any fever, chills, nausea, vomiting or diarrhea. She does not smoke. No recent sick contacts to her knowledge. She has had pneumonia in the past. She has taken sudafed and tessalon for her symptoms. Related Data Home Medications Medication Instructions Recorded Confirmed levothyroxine 112 mcg capsule 112 mcg PO QAM 01/25/21 07/21/23 vitamin B complex 1 tablet PO DAILY 01/25/21 07/21/23 insulin lispro 100 unit/mL See Rx Instructions .Route .COMPLEX 10/05/21 07/21/23 subcutaneous solution (Humalog U-100 Insulin) aspirin 81 mg tablet,delayed 81 mg PO DAILY 12/01/21 07/21/23 release blood-glucose sensor (Dexcom G6 07/21/23 07/21/23 Sensor device) blood-glucose transmitter (Dexcom 07/21/23 07/21/23 G6 Transmitter device) insulin pump cart,cont inf,BT 07/21/23 07/21/23 (Omnipod Dash Pods (Gen 4) subcutaneous cartridge) Allergies Allergy/AdvReac Type Severity Reaction Status Date / Time metformin AdvReac Intermediate Rash Verified 07/21/23 11:27 poison carlitos extract AdvReac Intermediate Rash Verified 07/21/23 11:27 Review of Systems Review of Systems: CONSTITUTIONAL: Denies fever, chills, or sweats. EYES: Denies visual changes, redness, or discharge. ENT: reports sinus congestion and postnasal drainage. Denies sore throat. CARDIOVASCULAR: Denies chest pain, palpitations, or edema. RESPIRATORY: Reports productive cough of yellow/green sputum and wheezing. Denies SOB. GASTROINTESTINAL: Denies abdominal pain, nausea, vomiting, or diarrhea. GENITOURINARY: Denies dysuria or hematuria. SKIN: Denies rash or itching. MUSCULOSKELETAL: Denies back pain, joint pain, or myalgia. NEUROLOGIC: Denies headache, numbness, dizziness, or weakness. PSYCHIATRIC: Denies anxiety or depression. [facility] Past Medical History Medical History Acute medial meniscus tear of right knee Allergic rhinitis Arthritis of right knee BMI 37.0-37.9, adult BMI 40.0-44.9, adult Contracture, right knee Diplopia FH: rheumatoid arthritis Gastroparesis H/O: CVA (cerebrovascular accident) Hyperlipidemia Hypothyroidism (acquired) Left superior oblique palsy Neuropathy Pelvic floor dysfunction Positive anti-CCP test Primary hypertension Situational mixed anxiety and depressive disorder Trochanteric bursitis, left hip Type 2 diabetes mellitus with diabetic neuropathy, with long-term current use of insulin Surgical History Surgical History History of section (~1977) History of cholecystectomy (~1991) History of D&C (~1976) History of hysterectomy History of meniscectomy of right knee (~05/05/21) Arthroscopic Partial Medial History of tubal ligation (~1979) Status post surgical manipulation of knee joint (~02/15/22) Status post surgical manipulation of knee joint (~12/14/22) With Injection of Depo Medrol 80mg and 4mL of 0.5% Marcaine Status post total right knee replacement (~10/31/21) Family History Family History Other Asthma Cerebrovascular accident Depression Diabetes mellitus Family history of alcoholism Family history of anemia Family history of arthritis Family history of cardiovascular disease Family history of cataracts Family history of glaucoma Family history of he
== END 2023-07-21 12:03 | disposition home or self-care (01) ==
PROVIDERS: Emergency Provider Nurse Practitioner; PCP Family Medicine
DX: J06.9 Acute upper respiratory infection, unspecified (principal); E78.5 Hyperlipidemia, unspecified; E03.9 Hypothyroidism, unspecified; E11.9 Type 2 diabetes mellitus without complications; Z79.899 Other long term (current) drug therapy; Z79.4 Long term (current) use of insulin; Z86.73 Personal history of transient ischemic attack (TIA), and cerebral infarction without residual deficits; Z20.822 Contact with and (suspected) exposure to COVID-19
CPT/HCPCS: 71046; 87426; 87804; 99213; C9803; G0463

== ENCOUNTER 2023-09-05 18:02 | Emergency (ER) | payer OTHER, BC, SELFPAY ==
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
[2023-09-05 18:15] VITALS: BP 139/84; PULSE 70; RESP 20; TEMP 36.2; O2SAT 98
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
[2023-09-05 22:55] VITALS: BP 158/77; PULSE 73; RESP 16; O2SAT 99
[2023-09-05] MEDS: ACETAMINOPHEN 500 MG TABLET 1000 MG PO (22:55)
[2023-09-05] MEDS: KETOROLAC 30 MG/ML VIAL (*BKC) IM (22:55)
[2023-09-05] MEDS: diazePAM (*CRX) 2 MG TABLET PO (23:35)
== END 2023-09-05 23:42 | disposition home or self-care (01) ==
PROVIDERS: Emergency Provider Student in an Organized Health Care Education/Training Program; PCP Family Medicine
DX: S13.4XXA Sprain of ligaments of cervical spine, initial encounter (principal); S86.911A Strain of unspecified muscle(s) and tendon(s) at lower leg level, right leg, initial encounter; M62.838 Other muscle spasm; I10 Essential (primary) hypertension; E11.43 Type 2 diabetes mellitus with diabetic autonomic (poly)neuropathy; K31.84 Gastroparesis; E78.5 Hyperlipidemia, unspecified; E03.9 Hypothyroidism, unspecified; E11.40 Type 2 diabetes mellitus with diabetic neuropathy, unspecified; M17.11 Unilateral primary osteoarthritis, right knee; Z96.41 Presence of insulin pump (external) (internal); Z96.651 Presence of right artificial knee joint; Z86.73 Personal history of transient ischemic attack (TIA), and cerebral infarction without residual deficits; Z90.49 Acquired absence of other specified parts of digestive tract; Z90.710 Acquired absence of both cervix and uterus; Z79.82 Long term (current) use of aspirin; Z79.4 Long term (current) use of insulin; Z79.85 Long-term (current) use of injectable non-insulin antidiabetic drugs; V43.52XA Car driver injured in collision with other type car in traffic accident, initial encounter
CPT/HCPCS: 73564; 96372; 99283; A9270; J1885; L0140

== ENCOUNTER 2023-11-13 19:06 | Inpatient (IN) | payer BC, MEDICARE, SELFPAY ==
[2023-11-13] VITALS (7 sets, daily range): BP systolic 135–165; BP diastolic 61–93; PULSE 60–65; RESP 12–20; TEMP 36.8; O2SAT 97–100
--- NOTE | ~2023-11-13 | XR_ITS ---
EXAMINATION: XR chest 2V DATE: 11/13/2023 20:05 INDICATION: Left chest pain. TECHNIQUE: Frontal and lateral views of the chest were obtained. COMPARISON: Chest 2 views 07/21/2023 FINDINGS: There is no pneumonia, pleural effusion, or pneumothorax. The heart size is normal. Surgica l clips in the right upper quadrant are likely from cholecystectomy. IMPRESSION: 1. No acute cardiopulmonary disease. Reviewed, dictated and finalized at location E.
--- NOTE | 2023-11-13 19:07 | ECG_ITS ---
SEE SCANNED COPY FOR CONFIRMED REPORT. MTDD
[2023-11-13 19:25] LABS: Basophils Absolute Auto 0.1 K/mm3 (0.0-0.1); Basophils Percent Auto 0.5 % (0.2-1.2); Eosinophils Absolute Auto 0.3 K/mm3 (0-0.3); Eosinophils Percent Auto 2.6 % (0-4.4); Hemoglobin 14.7 g/dL (12.0-15.0); Immature Granulocyte Absolute 0.03 K/mm3 (0.00-0.031); Immature Granulocyte Percent A 0.2 % (0-0.5); Lymphocytes Absolute Auto 4.49 K/mm3 (0.9-3.2); Lymphocytes Percent Auto 33.9 % (18.3-44.2); Mean Corpuscular HGB Conc 32.7 g/dl (32-36); Mean Corpuscular Hemoglobin 30.5 pg (26-34); Mean Corpuscular Volume 93.4 fl (80-100); Mean Platelet Volume 9.3 fl (7.4-10.4); Monocytes Percent Auto 7.7 % (2.6-8.5); Neutrophils Absolute Auto 7.3 K/mm3 (1.3-6.7); Neutrophils Percent Auto 55.1 % (45.5-73.1); Platelet Count Result 267 k/mm3 (150-375); Red Blood Count 4.82 M/mm3 (4.2-5.4); Red Cell Distribution Width 13.4 % (11.5-14.5); White Blood Count 13.3 K/mm3 (4.5-10.0)
[2023-11-13 19:35] LABS: INR 0.9; Prothrombin Time 12.8 Seconds (11.1-14.7)
[2023-11-13 19:41] LABS: Alanine Aminotransferase 15 U/L (6-35); Albumin Level 4.5 g/dL (3.5-5.1); Alkaline Phosphatase 79 U/L (38-126); Anion Gap 9 mmol/L (4-12); Aspartate Amino Transferase 23 U/L (14-36); Bilirubin,Total 0.7 mg/dL (0.2-1.3); Blood Urea Nitrogen 11 mg/dL (7-17); Calcium 9.8 mg/dL (8.4-10.2); Carbon Dioxide 26 mmol/L (22-30); Chloride 105 mmol/L (98-107); Estimated CRCL calculation 76 ml/min; Estimated Glomerular Filt Rate > 60; Glucose 219 mg/dL (65-110); Lipase 45 U/L (23-300); Potassium 3.7 mmol/L (3.4-5.0); Sodium 140 mmol/L (137-145)
[2023-11-13 19:43] LABS: Partial Thromboplastin Time 31.9 Seconds (22.3-36.8)
[2023-11-13 20:14] LABS: Troponin I 0.125 ng/mL (0.000-0.034)
[2023-11-13] MEDS: ASPIRIN 81 MG CHEWABLE TABLET 324 MG PO (20:20)
--- NOTE | 2023-11-13 20:33 | PC.NURSE ---
Repeat EKG done upon pts arrival to room.
--- NOTE | 2023-11-13 20:39 | ED.CHESTPAIN ---
HPI - Chest Pain General Chief Complaint: Chest Pain Stated Complaint: cp Time Seen by Provider: 11/13/23 20:18 History of Present Illness HPI narrative: Patient is a 68-year-old female who presents to the emergency department this evening complaining of some chest heaviness. Patient states that early in the afternoon she noticed that she had some left upper back pain between her shoulder blades and then by late afternoon she started to develop some chest heaviness. 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 Patient's neighbor is an ER nurse and after talking with her about her symptoms, the nurse prompted her to come to the emergency department for further evaluation. Patient states that for reason for that she probably would not be here. She denies any history of cardiovascular disease but admits to family history of cardiovascular disease. Patient does have a history of hypertension, hyperlipidemia and diabetes mellitus. She is currently denying any chest pain and states that by the time she got here the chest pressure that she was feeling has completely subsided. Patient admits that she did have a URI /bronchitis for the past 2 weeks which she has just clear. She denies any fevers or chills at home, and denies any recent shortness of breath, nausea or vomiting, any exertional dyspnea. She is currently denying any additional symptoms at this time. Related Data Home Medications Medication Instructions Recorded Confirmed vitamin B complex 1 tablet PO DAILY 01/25/21 10/23/23 aspirin 81 mg tablet,delayed 81 mg PO DAILY 12/01/21 10/23/23 release fluconazole 150 mg tablet 150 mg PO Q72H PRN 10/23/23 10/23/23 Allergies Allergy/AdvReac Type Severity Reaction Status Date / Time metformin AdvReac Intermediate Rash Verified 10/23/23 08:25 poison carlitos extract AdvReac Intermediate Rash Verified 10/23/23 08:25 Review of Systems Review of Systems: All systems are reviewed and are negative unless stated otherwise in the HPI. [facility] Past Medical History Medical History Acute medial meniscus tear of right knee Allergic rhinitis Arthritis of right knee BMI 37.0-37.9, adult BMI 40.0-44.9, adult Contracture, right knee Diplopia FH: rheumatoid arthritis Gastroparesis H/O nephrolithotomy with removal of calculi H/O: CVA (cerebrovascular accident) Hyperlipidemia Hypothyroidism (acquired) Left superior oblique palsy Neuropathy Pelvic floor dysfunction Positive anti-CCP test Primary hypertension Situational mixed anxiety and depressive disorder Trochanteric bursitis, left hip Type 2 diabetes mellitus with diabetic neuropathy, with long-term current use of insulin 08/2022 Surgical History Surgical History History of section (~1977) History of cholecystectomy (~1991) History of D&C (~1976) History of hysterectomy History of meniscectomy of right knee (~05/05/21) Arthroscopic Partial Medial History of tubal ligation (~1979) Status post surgical manipulation of knee joint (~02/15/22) Status post surgical manipulation of knee joint (~12/14/22) With Injection of Depo Medrol 80mg and 4mL of 0.5% Marcaine Status post total right knee replacement (~10/31/21) Family History Family History Other Asthma Cerebrovascular accident Depression Diabetes mellitus Family history of alcoholism Family history of anemia Family history of arthritis Family history of cardiovascular disease Family history of cataracts Family history of glaucoma Family history of hearing loss Family history of mental disorder Family history of migraine headaches Family history of obesity Family history of osteoporosis Hypertension Social History Social History (Reviewed 11/13/23
--- NOTE | 2023-11-13 22:19 | ECG_ITS ---
SEE SCANNED COPY FOR CONFIRMED REPORT MTDD
[2023-11-13 22:59] LABS: Troponin I 0.778 ng/mL (0.000-0.034)
--- NOTE | 2023-11-13 23:02 | PM.IMHP ---
H&P: HPI History of Present Illness Date/Time: 11/13/23 23:02 Chief Complaint: chest pain Narrative: This is a 68-year-old female past medical history significant for type diabetes mellitus, insulin dependent, morbid obesity, degenerative joint disease, hypertension. patient presents to the emergency room after having episode of left-sided chest pain with radiation to the scapula. Patient rates her pain a 6/10 intensity this is a care while at rest sitting at her desk at work, patient has been in her usual state of health up until this point. EXAMINATION: XR chest 2V DATE: 11/13/2023 20:05 INDICATION: Left chest pain. TECHNIQUE: Frontal and lateral views of the chest were obtained. COMPARISON: Chest 2 views 07/21/2023 FINDINGS: There is no pneumonia, pleural effusion, or pneumothorax. The heart size is normal. Surgical clips in the right upper quadrant are likely from cholecystectomy. IMPRESSION: 1. No acute cardiopulmonary disease. Review of Systems Review of Systems: chest pain PMFSH Past Medical History Medical History Acute medial meniscus tear of right knee Allergic rhinitis Arthritis of right knee BMI 37.0-37.9, adult BMI 40.0-44.9, adult Contracture, right knee Diplopia FH: rheumatoid arthritis Gastroparesis H/O nephrolithotomy with removal of calculi H/O: CVA (cerebrovascular accident) Hyperlipidemia Hypothyroidism (acquired) Left superior oblique palsy Neuropathy Pelvic floor dysfunction Positive anti-CCP test Primary hypertension Situational mixed anxiety and depressive disorder Trochanteric bursitis, left hip Type 2 diabetes mellitus with diabetic neuropathy, with long-term current use of insulin 08/2022 Surgical History Surgical History History of section (~1977) History of cholecystectomy (~1991) History of D&C (~1976) History of hysterectomy History of meniscectomy of right knee (~05/05/21) Arthroscopic Partial Medial History of tubal ligation (~1979) Status post surgical manipulation of knee joint (~02/15/22) Status post surgical manipulation of knee joint (~12/14/22) With Injection of Depo Medrol 80mg and 4mL of 0.5% Marcaine Status post total right knee replacement (~10/31/21) Family History Family History Other Asthma Cerebrovascular accident Depression Diabetes mellitus Family history of alcoholism Family history of anemia Family history of arthritis Family history of cardiovascular disease Family history of cataracts Family history of glaucoma Family history of hearing loss Family history of mental disorder Family history of migraine headaches Family history of obesity Family history of osteoporosis Hypertension Social History Social History Smoking status: Never smoker Second hand tobacco smoke exposure: No Additional smoking assessment comments: DENIES ANY FORM OF TOBACCO USE Alcohol intake: never Drinks per week: 1 Alcohol use details: SOCIALLY IN PAST Substance use: never Substance use type: does not use Other substance usage details: tried cbc gummies 2 nights for pain but nothing after Do You Feel Safe in your Home?: Yes Lack of Transportation: No Lack of Food: Never True Current Housing: I Have Housing Concerned About Future Housing: No Difficulty Paying Gas/Electric Bills: No Difficulty Paying for Meds: No Currently Unemployed: No Education: Bachelor's Degree Difficulty w/ Childcare or Family Care: No Living arrangements: alone Additional living arrangements comments: Significant other. Occupation/Education: occupation Gender identity (if verbalized by the patient): Female Spiritual care concerns: No Meds Home Medications and Allergies Home Medications
[2023-11-14] VITALS (27 sets, daily range): BP systolic 123–184; BP diastolic 48–99; PULSE 57–88; RESP 13–24; TEMP 36.1–36.7; O2SAT 95–100; BMI 39.1
--- NOTE | 2023-11-14 00:54 | ADMGEN ---
This patient, Jael Nieto, was admitted to IMU Room 211-01. Patient/family oriented to hospital policies and general routines including ID bracelet, bed and alarms, visiting hours, pain management, procedures, bathroom and other care routines, personal items, smoking policy, room service/diet, and visiting hours. Information on how to activate the Rapid Response Team has been discussed. Patient/Family are encouraged to report perceived risks to care and to ask questions if they do not understand what they are told or what they should do.
--- NOTE | 2023-11-14 02:28 | ECG_ITS ---
SEE SCANNED COPY FOR CONFIRMED REPORT MTDD
[2023-11-14] MEDS: ENOXAPARIN 100 MG/ML SYRINGE 90 MG SUB-Q (03:00)
--- NOTE | 2023-11-14 08:17 | ECG_ITS ---
SEE SCANNED COPY FOR CONFIRMED REPORT MTDD
[2023-11-14 09:23] LABS: Cholesterol 137 mg/dL (0-200); HDL Direct 48 mg/dL; Triglycerides 75 mg/dL (<150)
[2023-11-14] MEDS: GABAPENTIN 300 MG CAPSULE BY MOUTH (09:24)
[2023-11-14] MEDS: ASPIRIN 81 MG ENTERIC TABLET PO (09:24)
[2023-11-14] MEDS: ATORVASTATIN 40 MG TABLET 80 MG PO (09:24)
[2023-11-14] MEDS: IRBESARTAN 150 MG TABLET 300 MG PO (09:25)
[2023-11-14 09:32] LABS: Glucose Point of Care 220 mg/dl (65-105)
[2023-11-14 09:34] LABS: LDL Cholesterol Direct 87 mg/dL
[2023-11-14 09:52] LABS: Basophils Absolute Auto 0.1 K/mm3 (0.0-0.1); Basophils Percent Auto 0.4 % (0.2-1.2); Eosinophils Absolute Auto 0.2 K/mm3 (0-0.3); Eosinophils Percent Auto 1.4 % (0-4.4); Hematocrit 42.3 % (37.0-47.0); Hemoglobin 13.9 g/dL (12.0-15.0); Immature Granulocyte Absolute 0.04 K/mm3 (0.00-0.031); Immature Granulocyte Percent A 0.3 % (0-0.5); Lymphocytes Percent Auto 20.4 % (18.3-44.2); Mean Corpuscular HGB Conc 32.9 g/dl (32-36); Mean Corpuscular Hemoglobin 30.3 pg (26-34); Mean Corpuscular Volume 92.4 fl (80-100); Mean Platelet Volume 9.9 fl (7.4-10.4); Monocytes Absolute Auto 0.6 K/mm3 (0.1-0.6); Monocytes Percent Auto 5.4 % (2.6-8.5); Neutrophils Absolute Auto 8.5 K/mm3 (1.3-6.7); Neutrophils Percent Auto 72.1 % (45.5-73.1); Platelet Count Result 225 k/mm3 (150-375); Red Blood Count 4.58 M/mm3 (4.2-5.4); Red Cell Distribution Width 13.5 % (11.5-14.5); White Blood Count 11.8 K/mm3 (4.5-10.0)
[2023-11-14 09:54] LABS: Thyroid Stimulating Hormone 0.496 uIU/mL (0.465-4.680)
--- NOTE | 2023-11-14 09:56 | PM.CNCAR ---
Assessment and Plan Assessment and plan (1) NSTEMI (non-ST elevated myocardial infarction): Code(s): I21.4 - Non-ST elevation (NSTEMI) myocardial infarction Status: Acute Assessment and Plan: Recommend LHC. Discussed the procedure with the patient, including indication for the procedure, procedure details, post procedure care, risks vs benefits, alternative management strategies. Patient is agreeable to proceed. Will plan for LHC today. Continue ASA 81mg once daily. Will change her Simvastatin to a high-intensity statin, Atorvastatin 80mg once daily. Further recommendations and plan pending results of LHC. (2) Type 2 diabetes mellitus with diabetic neuropathy, with long-term current use of insulin: Code(s): E11.40 - Type 2 diabetes mellitus with diabetic neuropathy, unspecified; Z79.4 - medical terminologist (current) use of insulin Status: Acute Assessment and Plan: Hgb A1c 6.7. Management as per Hospitalist. (3) Hyperlipidemia: Qualifiers: Hyperlipidemia type: unspecified Qualified Code(s): E78.5 - Hyperlipidemia, unspecified Code(s): E78.5 - Hyperlipidemia, unspecified Status: Acute Assessment and Plan: Will change her Simvastatin to a high-intensity statin, Atorvastatin 80mg once daily. (4) Primary hypertension: Code(s): I10 - Essential (primary) hypertension Status: Acute Assessment and Plan: Stable, continue home Irbesartan. (5) Hypothyroidism (acquired): Code(s): E03.9 - Hypothyroidism, unspecified Status: Acute Assessment and Plan: Continue Levothyroxine. History of Present Illness History of Present Illness Consult date/time: 11/14/23 09:56 Requesting physician: David Stoll MD Consult reason: chest pain Reason For Visit: Elevated Trop,Chest Pressure Resolved Narrative: We are consulted for NSTEMI. This is a 68 year old female with hypertension, hyperlipidemia, type 2 diabetes mellitus with a Hgb A1c of 6.7%, obesity with BMI of 39, hypothyroidism, family history of coronary artery disease who presented with back pain and chest pain. Patient states that around 11AM yesterday, she developed back pain between her shoulder blades that progressed throughout the day and then radiated to her left anterior chest. Patient's neighbor is an ER nurse who checked her blood pressure at her home and encouraged her to go to ER. Patient has not had recurrence of the left anterior chest pain, but reports a recurrence of pain near her left shoulder blade this morning. EKGs obtained in the ER show sinus rhythm, no ischemic changes. Her troponins are 0.125, 0.778 and now 2.330. Patient given a dose of therapeutic Lovenox this morning. Reports family history of coronary artery disease. Her father had bypass surgery in his 50s. Her brother had coronary stents in his 50s as well; he from esophageal cancer at age 57. No tobacco use. Review of Systems Review of Systems: All systems reviewed & are unremarkable except as noted in HPI and below (HPI) [facility] Past Medical History Medical History Acute medial meniscus tear of right knee Allergic rhinitis Arthritis of right knee BMI 37.0-37.9, adult BMI 40.0-44.9, adult Contracture, right knee Diplopia FH: rheumatoid arthritis Gastroparesis H/O nephrolithotomy with removal of calculi H/O: CVA (cerebrovascular accident) Hyperlipidemia Hypothyroidism (acquired) Left superior oblique palsy Neuropathy Pelvic floor dysfunction Positive anti-CCP test Primary hypertension Situational mixed anxiety and depressive disorder Trochanteric bursitis, left hip Type 2 diabetes mellitus with diabetic neuropathy, with long-term current use of insulin 08/2022 Surgical History Surgical History History of section (~1977) History of cholecystectomy (~1991) History of D&C (~1976
--- NOTE | 2023-11-14 10:00 | PC.NURSE ---
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
--- NOTE | 2023-11-14 10:07 | WPDMODSED ---
Moderate Sedation Note-Pt Data Patient Data Diagnosis: NSTEMI Present Complaint: NSTEMI Procedure to be performed/Plan: Coronary angiography, left heart cath, +/- PCI Allergies Allergy/AdvReac Type Severity Reaction Status Date / Time metformin AdvReac Intermediate Rash Verified 10/23/23 08:25 poison carlitos extract AdvReac Intermediate Rash Verified 10/23/23 08:25 Home Medications Medication Instructions Recorded Confirmed Type vitamin B complex 1 tablet PO DAILY 01/25/21 11/14/23 History aspirin 81 mg tablet,delayed 81 mg PO DAILY 12/01/21 11/14/23 History release cholecalciferol (vitamin D3) 1,250 50,000 unit PO WEEKLY 90 days #13 03/19/23 11/14/23 Rx mcg (50,000 unit) capsule caps irbesartan 300 mg tablet 300 mg PO QAM #90 tabs 07/02/23 11/14/23 Rx gabapentin 300 mg capsule See Rx Instructions .Route 07/12/23 11/14/23 Rx .COMPLEX #630 caps montelukast 10 mg tablet 10 mg PO DAILY #90 tabs 07/22/23 11/14/23 Rx acetaminophen 500 mg tablet 500 mg PO Q6H PRN pain #30 tabs 09/05/23 11/14/23 Rx ibuprofen 400 mg tablet 400 mg PO Q6H PRN pain #30 tabs 09/05/23 11/14/23 Rx blood-glucose sensor (Dexcom G6 #9 ea 10/23/23 11/14/23 Rx Sensor device) blood-glucose transmitter (Dexcom #3 ea 10/23/23 11/14/23 Rx G6 Transmitter device) insulin lispro 100 unit/mL 80 unit (0.8 mL) continuous 10/23/23 11/14/23 Rx subcutaneous solution (Humalog subcutaneous infusion DAILY 90 U-100 Insulin) days #80 mL insulin pump cart,cont inf,BT #30 ea 10/23/23 11/14/23 Rx (Omnipod Dash Pods (Gen 4) subcutaneous cartridge) levothyroxine 112 mcg tablet 112 mcg PO DAILY #90 tabs 10/23/23 11/14/23 Rx semaglutide 0.25 mg or 0.5 mg (2 0.5 mg (0.736 mL) subcut WEEKLY 90 10/23/23 11/14/23 Rx mg/3 mL) subcutaneous pen injector days #9 mL simvastatin 40 mg tablet 40 mg PO QAM #90 tabs 10/23/23 11/14/23 Rx insulin pump cart,automated,BT #30 ea 10/28/23 11/14/23 Rx (Omnipod 5 G6 Pods (Gen 5) subcutaneous cartridge) insulin pump cartridge,automated #1 ea 10/28/23 11/14/23 Rx dose,BT with controller subcutaneous (Omnipod 5 G6 Intro Kit (Gen 5) subcutaneous cartridge with controller) oxybutynin chloride 15 mg 15 mg PO DAILY #90 tabs 10/30/23 11/14/23 Rx tablet,extended release 24 hr linaclotide 145 mcg capsule 145 mcg PO DAILY 11/14/23 11/14/23 History (Carylzess) Current Medications: Active Medications Acetaminophen (Acetaminophen 500 Mg Tablet) 500 mg PO Q6H PRN PRN Reason: pain 1-3 Aspirin (Aspirin 81 Mg Enteric Tablet) 81 mg PO DAILY ABDIRIZAK Last Admin: 11/14/23 09:24 Dose: 81 mg Atorvastatin Calcium (Atorvastatin 40 Mg Tablet) 80 mg PO DAILY [facility] Last Admin: 11/14/23 09:24 Dose: 80 mg Dextrose (Dextrose 50% 25 Gm/50 Ml Syringe) 12.5 gm IV PUSH PRN PRN; Protocol PRN Reason: Hypoglycemia Gabapentin (Gabapentin 300 Mg Capsule) 1,200 mg BY MOUTH HS ABDIRIZAK Gabapentin (Gabapentin 300 Mg Capsule) 300 mg BY MOUTH DAILY@0800 ABDIRIZAK Last Admin: 11/14/23 09:24 Dose: 300 mg Gabapentin (Gabapentin 300 Mg Capsule) 600 mg BY MOUTH DAILY@1700 ABDIRIZAK Glucagon (Glucagon For Inj 1 Mg Vial) 1 mg IM PRN PRN; Protocol PRN Reason: Hypoglycemia Glucose (Glucose Oral Gel 15 Gm Of Glucse In 37.5 Gm Tube) 15 gm PO PRN PRN; Protocol PRN Reason: Hypoglycemia Dextrose (Dextrose 5% 1,000 Ml) 1,000 mls @ 100 mls/hr IVPB PRN PRN; Protocol PRN Reason: Hypoglycemia Insulin Aspart (Insulin Aspart (*Bkc) 100 Units/Ml) 2 - 5 units SUB-Q [facility] ABDIRIZAK; Protocol Last Admin: 11/14/23 09:31 Dose: Not Given Irbesartan (Irbesartan 150 Mg Tablet) 300 mg PO QAM [facility] Last Admin: 11/14/23 09:25 Dose: 300 mg Levothyroxine Sodium (Levothyroxine Sodium 112 Mcg Tablet) 112 mcg PO DAILY@0630 [facility] Last Admin: 11/14/23 06:50 Dose: Not Given Linaclotide (Linaclotide 145 Mcg Capsule) 145 mcg PO DAILY [facility] Last Admin: 11/14/23 09:15 Dose: Not Given Montelukast Sodium (Montelukast Sodium 10 Mg Tablet) 10 mg PO DAILY [facility] Last Ad
--- NOTE | 2023-11-14 10:08 | WPDCARDPROC ---
Cardiac Cath Procedure Note Date of procedure:: 11/14/23 Performing physician:: CATHETERIZATION LABORATORY REPORT Procedure Date: 11/14/2023 Title Specialist: Smiley Magaña M.D., [facility]? Referring Physician: Smiley Magaña M.D. Anesthesia: Versed and Fentanyl were ordered and given in my presence at 10:26, procedure ended at 11:40. Supervision of nurse monitored moderate sedation with Versed and Fentanyl was provided for 74 minutes. Total of Versed 1mg and Fentanyl 75mcg were administered by the Strawberry Grower RN Bharati Schmid. Pre-op Diagnosis: Coronary artery disease Post-op Diagnosis: Significant 99% stenosis in the Ramus just after the ostium with complete occlusion of the vessel shortly distal to the stenosis. S/p successful IVUS-guided PCI with 2.75mm x 18mm Orsiro LU. Procedure(s): 1. Moderate sedation 2. Ultrasound-guided access of the right radial artery 3. Coronary angiography 4. Left heart catheterization 5. PCI of the ostial-proximal Ramus with LU x 1 (2.75mm x 18mm Orsiro LU). 6. IVUS of the Ramus Access Site: Right radial artery Brief History and Clinical Indications: Patient is a 68 year old female with hypertension, hyperlipidemia, type 2 diabetes mellitus with a Hgb A1c of 6.7%, obesity with BMI of 39, hypothyroidism, family history of coronary artery disease who is referred for [facility] for NSTEMI. All risks, benefits and alternatives to left heart catheterization with or without percutaneous coronary intervention was discussed at length with the patient. Risk of complications including but not limited to bleeding, infection, arrhythmia, stroke, worsening kidney function, blood loss, groin hematoma, limb loss, emergency coronary artery bypass grafting, and even were discussed with the patient and all questions were answered. The patient understood and wished to proceed. Time out called, patient name, date of , medical record number, allergies, procedure performed, identify Title Specialist, patient and staff member concurred with accurate data, procedure carried on. Findings: LEFT HEART CATHETERIZATION FINDINGS: 1. Left main: The left main coronary artery is widely patent without any significant obstructive disease. 2. Left anterior descending: The mid LAD has mild disease. Otherwise, remainder of the LAD and the diagonal branches have mild luminal irregularities without any significant obstructive angiographic disease. 3. Ramus: Just after the ostium, there is a 99% stenosis in the Ramus. The vessel is completely occluded shortly distal to that. 4. Left circumflex: The left circumflex artery and the main marginal branches have mild luminal irregularities without any significant obstructive angiographic disease. 5. Right coronary artery: The RCA is the dominant vessel. There is mild disease in the mid and distal portion. The RPDA has mild disease in the proximal portion. Description of Procedure and PCI: Informed consent signed and placed in the chart. Patient transferred to clinical laboratory manager room. Prepped and draped in usual sterile fashion. 2% lidocaine injected subcutaneously in right wrist area. 22-gauge venipuncture catheter used to access the right radial artery under ultrasound guidance. 6-FR slender sheath placed in right radial artery. Nitroglycerine and Verapamil were given intraarterial through the sheath. Versacore wire advanced under fluoroscopy 5F Tig 4 diagnostic catheter engaged Left Main Coronary Artery. 5F Tig 4 diagnostic catheter engaged Right Coronary Artery Multiple orthogonal angiogram obtained and reviewed Angiomax was used for anticoagulation. 6F CLS 3.0 guide catheter was used to intubate the left main. 0.014 Ursine coronary wire was passed in to the distal Ramus. The lesion was pre-dilated with a 2.0 mm x 15 mm balloon inflated to high OLIVERIO. Intracoronary NTG was administered. IVUS catheter advanced distal to the lesion, reference measurements obtained. A 2.75 mm x 18
[2023-11-14 10:39] LABS: Anion Gap 3 mmol/L (4-12); Blood Urea Nitrogen 9 mg/dL (7-17); Carbon Dioxide 25 mmol/L (22-30); Chloride 107 mmol/L (98-107); Estimated CRCL calculation 89 ml/min; Estimated Glomerular Filt Rate > 60; Glucose 211 mg/dL (65-110); Magnesium 2.1 mg/dL (1.6-2.3); Potassium 4.1 mmol/L (3.4-5.0); Sodium 135 mmol/L (137-145)
--- NOTE | 2023-11-14 14:06 | PM.IMPN ---
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 patient presents to the emergency room after having episode of left-sided chest pain with radiation to the scapula. 1. 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 Diabetes mellitus: Blood glucose checked t.i.d. a.c. and HS Continue with sliding scale insulin Adjust dose as needed 3. Hypothyroidism: Continue with levothyroxine 4. Code status: Full 5. DVT prophylaxis: Heparin subQ 6. Disposition: Pending improvement Time Spent With Patient Time with patient: 15 - 25 minutes Subjective Date/time seen: 11/14/23 14:06 Interval history: No acute events overnight Review of Systems Review of Systems: All systems reviewed & are unremarkable except as noted in HPI and below Exam Const: General: comfortable HENMT: Mouth: Yes moist mucous membranes Eyes: Sclera: sclerae normal Neck: Neck: supple Resp: Effort & Inspection: normal respiratory effort Cardio: Rate: regular rate Rhythm: regular rhythm GI: GI Palp: Yes Soft to palpation Skin: General skin exam: normal color Extrem: General: normal to inspection Objective Data Vital Signs Vital Signs: Vital Signs - 24 hr 11/13/23 19:09 11/13/23 20:30 11/13/23 20:32 Temperature 98.2 F Pulse Rate 65 61 Respiratory Rate 18 14 Blood Pressure 163/93 H 165/61 H Pulse Oximetry 99 100 100 Oxygen Delivery Room Air Room Air Oxygen Flow Rate Fraction of Inspired Oxygen 11/13/23 20:33 11/13/23 20:32 11/13/23 21:16 Temperature Pulse Rate 61 60 63 Respiratory Rate 16 20 Blood Pressure 165/61 H 135/62 Pulse Oximetry 100 97 Oxygen Delivery Oxygen Flow Rate Fraction of Inspired Oxygen 11/13/23 22:00 11/13/23 22:01 11/14/23 00:35 Temperature 97.2 F L Pulse Rate 61 61 66 Respiratory Rate 13 12 18 Blood Pressure 157/68 H 144/62 H Pulse Oximetry 97 97 99 Oxygen Delivery Oxygen Flow Rate Fraction of Inspired Oxygen 11/14/23 01:55 11/14/23 03:44 11/14/23 03:44 Temperature Pulse Rate 64 58 L 58 L Respiratory Rate 18 Blood Pressure Pulse Oximetry 99 Oxygen Delivery Room Air Oxygen Flow Rate Fraction of Inspired Oxygen 11/14/23 04:50 11/14/23 06:00 11/14/23 07:17 Temperature 97.9 F 97.6 F Pulse Rate 74 84 67 Respiratory Rate 18 16 Blood Pressure 152/69 H 133/56 L Pulse Oximetry 95 99 Oxygen Delivery Oxygen Flow Rate Fraction of Inspired Oxygen 11/14/23 08:51 11/14/23 09:14 11/14/23 08:00 Temperature Pulse Rate 79 Respiratory Rate Blood Pressure Pulse Oximetry 98 96 Oxygen Delivery Nasal Cannula Room Air Oxygen Flow Rate 2 Fraction of Inspired Oxygen 11/14/23 08:00 11/14/23 12:05 11/14/23 13:00 Temperature 97 F L Pulse Rate 58 L 61 Respiratory Rate 13 19 Blood Pressure 184/61 H 139/57 L Pulse Oximetry 98 99 Oxygen Delivery Room Air Room Air Room Air Oxygen Flow Rate Fraction of Inspired Oxygen 11/14/23 12:15 11/14/23 12:30 11/14/23 12:45 Temperature Pulse Rate 73 71 63 Respiratory Rate 24 H 21 H 18 Blood Pressure 162/72 H 146/68 H 145/74 H Pulse Oximetry 96 98 100 Oxygen Delivery Room Air Room Air Room Air Oxygen Flow Rate Fraction of Inspired Oxygen 11/14/23 13:30 11/14/23 14:00 Temperature
--- NOTE | 2023-11-14 15:59 | PCCCNOTE ---
On 11/14/23, the student, [India Lopez ], provided care and completed [facility] documentation on this patient. I have reviewed the student's documentation and agree with the findings.
--- NOTE | 2023-11-14 16:04 | ECG_ITS ---
SEE SCANNED COPY FOR CONFIRMED REPORT MTDD
[2023-11-14] MEDS: SODIUM CHLORIDE 0.9% IV 1,000 ML 125 ML IV CONT (16:53)
--- NOTE | 2023-11-14 17:04 | PC.NURSE ---
Patient returned from [employer] @ [id number]. Handoff report received from JHOAN Allred. right radial site assessed. clean dry and intact
[2023-11-14 17:17] LABS: Glucose Point of Care 233 mg/dl (65-105)
[2023-11-14] MEDS: GABAPENTIN 300 MG CAPSULE 600 MG BY MOUTH (17:27)
[2023-11-14] MEDS: INSULIN ASPART (*BKC) 100 UNITS/ML SUB-Q ×2 (17:28→21:20)
[2023-11-14 20:37] LABS: Glucose Point of Care 252 mg/dl (65-105)
[2023-11-14] MEDS: GABAPENTIN 300 MG CAPSULE 1200 MG BY MOUTH (21:22)
[2023-11-14] MEDS: TICAGRELOR 90 MG TABLET PO (21:23)
[2023-11-15] VITALS (11 sets, daily range): BP systolic 90–131; BP diastolic 47–70; PULSE 69–94; RESP 12–20; TEMP 36.6–36.9; O2SAT 96–99; BMI 41.1
--- NOTE | 2023-11-15 | ECHO_ITS ---
Patient Info Name: Jael Nieto Age: 68 years : 1955 Gender: Female Ht: 60 in Wt: 195 lbs BSA: 1.98 m2 HR: 81 bpm BP: 105 / 53 mmHg Heart Rhythm: Sinus Rhythm Technical Quality: Poor Exam Date: 11/15/2023 10:15 AM Exam Location: Echo Lab Patient Status: Inpatient Admit Date: 11/14/2023 Staff Ordering Physician: Tricia Valle MD Glass Block Installer: Yaniv Antonio RDCS Attending Provider: Alessandro Hensley MD Exam Type: CA echo dop color flow w con Study Info Indications - NSTEMI Complete two-dimensional, color flow and Doppler transthoracic echocardiogram is performed with contrast to opacify the left ventricle and to improve the deliniation of the left ventricle endocardial borders. Reason for Poor Study: poor echocardiographic windows Summary 1. Technically difficult exam, definity contrast used to improve visualization. 2. Left ventricular hypertrophy with hyperdynamic systolic function. 3. Grade 1 diastolic noncompliance. 4. No valvular dysfunction. Left Ventricle Left ventricular chamber dimension is normal. Left ventricular systolic function is hyperdynamic, estimated at >70%. There is moderate concentric increased left ventricular wall thickness. The left ventricular diastolic function is grade I diastolic dysfunction. Right Ventricle Right ventricular chamber dimension is normal. Left Atria Left atrial chamber dimension is normal. Right Atria Right atrial chamber dimension is normal. Aortic Valve The aortic valve is normal. Pulmonic Valve The pulmonic valve is not well visualized. Mitral Valve The mitral valve has normal leaflets. The mitral valve annulus is mildly calcified. Tricuspid Valve The tricuspid valve leaflets are normal. Pericardium/Pleural The pericardium appears normal. Aorta The aortic root size at the sinus of Valsalva is normal. Left Ventricular Outflow Tract Name Value Normal LVOT 2D LVOT Diameter 1.89 cm LVOT Doppler LVOT Peak Gradient 3 mmHg LVOT Mean Gradient 2 mmHg LVOT VTI 21.56 cm LVOT VTI/AV VTI Ratio 0.98 LVOT Stroke Volume 60.48 ml LVOT CO 4.40 l/min LVOT CI 2.22 L/min/m2 Pulmonic Valve Name Value Normal RVOT Doppler RVOT Peak Gradient 2 mmHg PV Doppler PV Peak Gradient 4 mmHg Mitral Valve Name Value Normal MV Doppler MV Decel Scurry 261.93 cm/s2 MV PHT 0
[2023-11-15 04:38] LABS: Basophils Absolute Auto 0.1 K/mm3 (0.0-0.1); Basophils Percent Auto 0.5 % (0.2-1.2); Eosinophils Absolute Auto 0.2 K/mm3 (0-0.3); Eosinophils Percent Auto 1.8 % (0-4.4); Hematocrit 40.2 % (37.0-47.0); Immature Granulocyte Absolute 0.03 K/mm3 (0.00-0.031); Immature Granulocyte Percent A 0.3 % (0-0.5); Lymphocytes Percent Auto 28.3 % (18.3-44.2); Mean Corpuscular HGB Conc 32.3 g/dl (32-36); Mean Corpuscular Volume 92.8 fl (80-100); Mean Platelet Volume 9.5 fl (7.4-10.4); Monocytes Percent Auto 9.2 % (2.6-8.5); Neutrophils Absolute Auto 6.8 K/mm3 (1.3-6.7); Neutrophils Percent Auto 59.9 % (45.5-73.1); Platelet Count Result 224 k/mm3 (150-375); Red Blood Count 4.33 M/mm3 (4.2-5.4); Red Cell Distribution Width 13.5 % (11.5-14.5); White Blood Count 11.3 K/mm3 (4.5-10.0)
[2023-11-15 04:49] LABS: Anion Gap 4 mmol/L (4-12); Blood Urea Nitrogen 10 mg/dL (7-17); Carbon Dioxide 24 mmol/L (22-30); Chloride 109 mmol/L (98-107); Estimated CRCL calculation 92 ml/min; Estimated Glomerular Filt Rate > 60; Glucose 168 mg/dL (65-110); Potassium 3.8 mmol/L (3.4-5.0); Sodium 137 mmol/L (137-145)
[2023-11-15] MEDS: LEVOTHYROXINE SODIUM 112 MCG TABLET PO (06:30)
[2023-11-15 08:19] LABS: Glucose Point of Care 173 mg/dl (65-105)
[2023-11-15] MEDS: HEPARIN SODIUM 5,000 UNITS/ML VIAL 5000 UNITS SUB-Q (09:12)
[2023-11-15] MEDS: ATORVASTATIN 40 MG TABLET 80 MG PO (09:12)
[2023-11-15] MEDS: MONTELUKAST SODIUM 10 MG TABLET PO (09:14)
[2023-11-15] MEDS: ASPIRIN 81 MG ENTERIC TABLET PO (09:14)
[2023-11-15] MEDS: GABAPENTIN 300 MG CAPSULE BY MOUTH (09:14)
[2023-11-15] MEDS: TICAGRELOR 90 MG TABLET PO (09:14)
[2023-11-15] MEDS: IRBESARTAN 150 MG TABLET 300 MG PO (09:14)
[2023-11-15] MEDS: LINACLOTIDE 145 MCG CAPSULE PO (09:14)
--- NOTE | 2023-11-15 10:47 | PM.PNCARD ---
Progress Note: A&P Assessment and Plan (1) NSTEMI (non-ST elevated myocardial infarction): Code(s): I21.4 - Non-ST elevation (NSTEMI) myocardial infarction Status: Acute Plan Patient is stable for discharge home at this time. I will insure that appropriate/timely follow-up is arranged in the office with Dr. Magaña. Spoke to the patient at length about the importance of strict adherence to dual anti-platelet therapy for the balance of 1 year Abhishek Angeles MD [facility] Subjective Date/time seen: Date of service: 11/15/23 10:47 Interval history: Follow-up visit in this 68-year-old lady with: Newly diagnosed coronary artery disease with non ST elevation GA. Patient underwent PCI of the target lesion/ramus intermedius branch yesterday with a good angiographic result. She received a drug-eluting stent. There were no other significant coronary lesions and her LV function by echo looks well preserved. She feels well this morning and has no cardiovascular complaints Exam Const: Other: Pleasant morbidly obese lady no distress HENMT: Mouth: Yes moist mucous membranes Eyes: Sclera: sclerae normal Neck: Neck: supple Other: Carotid pulses are intact bilaterally. Difficult to assess venous distention Resp: Effort & Inspection: normal respiratory effort Auscultation: clear to auscultation bilaterally Cardio: Rate: regular rate Rhythm: regular rhythm Other: Normal heart sounds, PMI cannot be palpated no murmur no gallop GI: GI Palp: Yes Soft to palpation Auscultation: normal bowel sounds Other: Abdomen obese but otherwise benign Skin: General skin exam: normal color Neuro: Other: Alert and oriented x3 Extrem: Other: No edema, radial artery puncture site looks fine Objective Data Vital Signs Vital Signs: Vital Signs - 24 hr 11/14/23 12:05 11/14/23 13:00 11/14/23 15:30 Temperature 36.1 C L Pulse Rate 58 L 61 69 Pulse Rate [Right Radial] Respiratory Rate 13 19 20 Blood Pressure 184/61 H 139/57 L 143/63 H Pulse Oximetry 98 99 99 Oxygen Delivery Room Air Room Air Room Air 11/14/23 12:15 11/14/23 12:30 11/14/23 12:45 Temperature Pulse Rate 73 71 63 Pulse Rate [Right Radial] Respiratory Rate 24 H 21 H 18 Blood Pressure 162/72 H 146/68 H 145/74 H Pulse Oximetry 96 98 100 Oxygen Delivery Room Air Room Air Room Air 11/14/23 13:30 11/14/23 14:00 11/14/23 14:30 Temperature Pulse Rate 63 62 57 L Pulse Rate [Right Radial] Respiratory Rate 13 13 17 Blood Pressure 151/75 H 156/70 H 154/48 H Pulse Oximetry 98 98 99 Oxygen Delivery Room Air Room Air Room Air 11/14/23 15:00 11/14/23 16:00 11/14/23 17:00 Temperature 36.5 C Pulse Rate 65 68 77 Pulse Rate [Right Radial] Respiratory Rate 16 18 16 Blood Pressure 158/75 H 142/66 H 149/62 H Pulse Oximetry 100 98 100 Oxygen Delivery Room Air Room Air 11/14/23 18:00 11/14/23 18:00 11/14/23 18:00 Temperature 36.6 C Pulse Rate 83 85 Pulse Rate [Right Radial] 88 Respiratory Rate 16 Blood Pressure 132/99 H Pulse Oximetry 100 Oxygen Delivery 11/14/23 19:00 11/14/23 19:00 11/14/23 20:46 Temperature 36.7 C 36.4 C Pulse Rate 77 77 Pulse Rate [Right Radial] 82 Respiratory Rate 16 18 Blood Pressure 136/56 L 144/58 H Pulse Oximetry 99 98 Oxygen Delivery 11/14/23 20:00 11/14/23 20:00 11/14/23 22:00 Temperature Pulse Rate 77 77 Pulse Rate [Right Radial] Respiratory Rate Blood Pressure Pulse Oximetry Oxygen Delivery Room Air 11/14/23 23:54 11/15/23 00:00 11/15/23 00:00 Temperature 36.4 C L Pulse Rate 81 73 Pulse Rate [Right Radial] Respiratory Rate 18 Blood Pressure 123/72 Pulse Oximetry 96 Oxygen Delivery Room Air 11/15/23 02:00 11/15/23 04:37 11/15/23 04:00 Temperature 36.7 C Pulse Rate 79 81 Pulse Rate [Right Radial] Respiratory Rate 18 Blood Pressure 105/53 L Pulse Oximetry 96
[2023-11-15] MEDS: PERFLUTREN LIPID MICROSPHERES 1.5 ML VIAL DILUTED TO 10 ML TOTAL VOLUME IV PUSH (10:58)
[2023-11-15 11:47] LABS: Glucose Point of Care 302 mg/dl (65-105)
[2023-11-15] MEDS: INSULIN ASPART (*BKC) 100 UNITS/ML SUB-Q (12:01)
--- NOTE | 2023-11-15 15:01 | PM.DS ---
DS: Admitting Diagnosis Discharge Date 11/15/23 Admitting Diagnosis Chest pain DS: Discharge Diagnosis Discharge Diagnosis (1) NSTEMI (non-ST elevated myocardial infarction): Code(s): I21.4 - Non-ST elevation (NSTEMI) myocardial infarction Status: Acute (2) Chest pain: Code(s): R07.9 - Chest pain, unspecified Status: Acute (3) Type 2 diabetes mellitus with hyperglycemia, with long-term current use of insulin: Code(s): E11.65 - Type 2 diabetes mellitus with hyperglycemia; Z79.4 - group home (current) use of insulin Status: Acute DS: Summary Hospital Course Reason for hospitalization: 68yo female with DM, morbid obesity, degenerative joint disease and HTN here for chest pain. Please see H&P for details. Hospital Course: On presentation, blood pressure was 163/93. She was hemodynamically stable. White count was mildly elevated but this trended downward on repeat. Hemoglobin was normal. CMP was normal except for elevated glucose. Troponin was elevated to 2.3. TSH was normal. Cholesterol 137 with LDL 87 and HDL 40. Triglycerides were normal. Chest x-ray was clear. EKG showed borderline left axis deviation, low-voltage and pattern consistent with pulmonary disease. Echocardiogram showed EF of greater than 70% with moderate concentric increased LV wall thickness. She had grade 1 diastolic dysfunction. No significant valvular disease. Patient was given aspirin and started on Lovenox therapeutic dose. Cardiology was consulted. Glucose was elevated and she was on sliding scale protocol. Patient underwent left heart catheterization which showed a significant 99% stenosis at the ramus just after the ostium with complete occlusion of the vessel shortly distal to the stenosis. She underwent successful PCI with drug-eluting stent placement. Otherwise had minimal nonobstructive disease elsewhere. Please see report for details. She tolerated the procedure well. She was started on guideline appropriate therapy. She was able be discharged home on 11/15/2023. Status at Discharge Cognitive/behavioral status at discharge: stable Time Spent with Patient Time attestation: Total time spent providing and/or coordinating discharge services: 35 minutes Time spent: Greater than 30 minutes Exam Narrative: AF 98.5 90/57 76 16 98% ra Gen - NARD Chest - CTA bilaterally, nml RR CV - RRR S1/S2. Tele showing no significant dysrhythmias Abd - Soft, NT/ND, Positive BS Ext - No pedal edema Psych - Nml mood and affect Skin - Warm and dry DS: Data Data Completed and Pending Labs on day of discharge: Labs from last 24 hours 11/15/23 11/15/23 11/15/23 11:38 08:11 04:11 WBC 11.3 H RBC 4.33 Hgb 13.0 Hct 40.2 MCV 92.8 MCH 30.0 MCHC 32.3 RDW 13.5 Plt Count 224 MPV 9.5 Immature Gran % (Auto) 0.3 Neut % (Auto) 59.9 Lymph % (Auto) 28.3 [place] % (Auto) 9.2 H Eos % (Auto) 1.8 Baso % (Auto) 0.5 Lymph # (Auto) 3.20 [place] # (Auto) 1.0 H Eos # (Auto) 0.2 Baso # (Auto) 0.1 Abs Immat Gran (auto) 0.03 Absolute Neuts (auto) 6.8 H Absolute Nucleated RBC 0.000 Nucleated RBC % 0.0 Sodium Potassium Chloride Carbon Dioxide Anion Gap BUN Creatinine Estim Creat Clear Calc Estimated GFR Glucose POC Capillary Glucose 302 H 173 H Calcium 11/15/23 11/14/23 11/14/23 04:10 20:30 17:06 WBC RBC Hgb Hct MCV MCH MCHC RDW Plt Count MPV Immature Gran % (Auto) Neut % (Auto) Lymph % (Auto) [place] % (Auto) Eos % (Auto) Baso % (Auto) Lymph # (Auto) [place] # (Auto) Eos # (Auto) Baso # (Auto) Abs Immat Gran (auto) Absolute Neuts (auto) Absolute Nucleated RBC Nucleated RBC % Sodium 137 Potassium 3.8 Chloride 109 H Carbon Dioxide 24 Anion Gap 4 BUN 10 Creatinine 0.50 L Estim Creat
--- NOTE | 2023-11-21 14:02 | IVDEFINITY ---
Prior to administration of IV Definity the patient was educated on the risks and benefits of the imaging enhancing agent including potential adverse side effects. The patient verbalized understanding. Allergies were verified. No exclusion criteria were identified and at least one of the following inclusion criteria were met: 1) physician request, 2) patient technically difficult to image (per the [place] [employer] Echocardi[employer] guidelines of two or more segments not discernable within the apical view), or 3) questionable left ventricular function. ?
--- OUTSIDE RECORDS SUMMARY | 2023-11-27 18:54 | XMS_ITS | Patient Health Record ---
Author Name Unknown Organization [facility] Address [address] [place], [place] [id number] Care Team Providers Care Commercial Insurance Underwriter Name Role Phone TERRY KAUR MD Primary Care Provider Shara Davis Unavailable [phone] ALLERGIES Allergen (clinical drug ingredient) Drug/Non Drug Allergy documented on EMR Reaction Allergy Type Onset Date Status metformin metFORMIN Unknown Drug Allergy Active REASON FOR REFERRAL No Information MEDICATIONS Medication SIG (Take, Route, Frequency, Duration) Notes Start Date End Date Status Tirosint-Ирина 112 mcg (0.112 mg)/mL 1 mL orally once a day Activ e montelukast 10 mg 1 tab(s) orally once a day for 30 day(s) Active HumaLOG Active Linzess 145 mcg 1 cap(s) orally once a day for 30 day(s) Active gabapentin 300 mg 1 cap(s) orally 3 ti mes a day for 30 day(s) Active DHEA 25 mg 1 tab(s) orally once a day for 30 day(s) Active Trulicity once a week Active irbesartan 300 mg 1 tab(s) orally once a day for 30 day(s) Active simvastatin 20 mg 1 tab(s) orally once a day (at bedtime) for 30 day(s) Active SOCI
== END 2023-11-15 17:50 | disposition home or self-care (01) | DRG 322 ==
LOC: ANHED 21:06 → ANHIMU 11-14 01:08
PROVIDERS: Internal Medicine; Student in an Organized Health Care Education/Training Program; Admitting Provider Internal Medicine; Emergency Provider Emergency Medicine; PCP Family Medicine; Visit Provider Internal Medicine
PROC: 4A023N7 Measurement of Cardiac Sampling and Pressure, Left Heart, Percutaneous Approach (ICD-10-PCS; CPT 93452; principal; 2023-11-14 10:00)
PROC: 027034Z Dilation of Coronary Artery, One Artery with Drug-eluting Intraluminal Device, Percutaneous Approach (ICD-10-PCS; CPT 92928; 2023-11-14 10:00)
PROC: 027034Z Dilation of Coronary Artery, One Artery with Drug-eluting Intraluminal Device, Percutaneous Approach (ICD-10-PCS; 2023-11-14 10:00)
DX: I21.4 Non-ST elevation (NSTEMI) myocardial infarction (principal); I25.10 Atherosclerotic heart disease of native coronary artery without angina pectoris; I10 Essential (primary) hypertension; E11.40 Type 2 diabetes mellitus with diabetic neuropathy, unspecified; E11.43 Type 2 diabetes mellitus with diabetic autonomic (poly)neuropathy; K31.84 Gastroparesis; E03.9 Hypothyroidism, unspecified; E78.5 Hyperlipidemia, unspecified; E66.01 Morbid (severe) obesity due to excess calories; M19.90 Unspecified osteoarthritis, unspecified site; F41.8 Other specified anxiety disorders; Z96.41 Presence of insulin pump (external) (internal); Z96.651 Presence of right artificial knee joint; Z79.82 Long term (current) use of aspirin; Z86.73 Personal history of transient ischemic attack (TIA), and cerebral infarction without residual deficits; Z68.39 Body mass index [BMI] 39.0-39.9, adult
CPT/HCPCS: 36415; 71046; 80048; 80053; 80061; 82948; 83690; 83735; 84443; 84484; 85025; 85610; 85730; 92978; 93005; 93458; 99285; A9270; C1725; C1753; C1769; C1784; C1887; C1894; C8929; C9600; J0583; J1644; J1650; J1815; J2250; J2305; J3010; J7030; J7040; Q9957

== ENCOUNTER 2023-12-10 14:37 | Outpatient (RCR) | payer BC, SELFPAY ==
[2023-12-10 14:37] VITALS: BMI 36.8
[2023-12-10 14:44] VITALS: BMI 36.8
== END 2024-03-02 10:22 | disposition home or self-care (01) ==
LOC: ANHDMC 14:37
PROVIDERS: PCP Family Medicine; Visit Provider Internal Medicine Endocrinology, Diabetes & Metabolism
DX: E11.65 Type 2 diabetes mellitus with hyperglycemia (principal); Z79.4 Long term (current) use of insulin; Z71.3 Dietary counseling and surveillance
CPT/HCPCS: 97802

== ENCOUNTER 2024-01-07 07:11 | Outpatient (CLI) | payer BC, SELFPAY ==
--- NOTE | ~2024-01-07 | MM_ITS ---
EXAMINATION: MM screening joni BI w gricelda HISTORY: Screening TECHNIQUE: Craniocaudal and mediolateral oblique 3-D tomosynthesis images were obtained and synthetic 2-D images were generated. CAD analysis was submitted and interpreted. COMPARISON: Comparison to multiple prior studies sequentially, with oldest reviewed study dated 03/2018. BREAST PARENCHYMAL COMPOSITION: There are scattered areas of fibroglandular density. FINDINGS: There is no evidence of suspicious mass, calcification, or architectural distortion to sugg est malignancy in either breast. There has been no suspicious interval change. IMPRESSION: 1. No mammographic evidence of malignancy. 2. Recommend routine screening mammography in one year. BI-RADS Category 1: Negative Reviewed, dictated and finalized at location B.
== END 2024-01-07 07:12 | disposition home or self-care (01) ==
LOC: ANHIMG 07:15
PROVIDERS: PCP Family Medicine; Visit Provider Family Medicine
DX: Z12.31 Encounter for screening mammogram for malignant neoplasm of breast (principal)
CPT/HCPCS: 77063; 77067

== ENCOUNTER 2024-01-28 08:32 | Outpatient (CLI) | payer BC, SELFPAY ==
--- NOTE | ~2024-01-28 | XR_ITS ---
EXAMINATION: XR UGIAC w barium swallow DATE: 01/28/2024 09:25 INDICATION: Dysphagia TECHNIQUE: The patient drank thick barium, gas-producing crystals, and thin barium. Fluoroscopic spot radiographs of the hypopharynx, esophagus, stomach and proximal small bowel were obtained. A total o f 1971 fluoroscopic spot images were recorded. Fluoroscopy exposure time was 2.9 minutes. Total DAP w as 18.974 Gycm^2 COMPARISON: None. FINDINGS: The pharynx is symmetric and without evidence of mass lesion or mucosal irregularity in the static po sition. With forced expiration against pressure there is asymmetry to the piriform sinuses with decre ased expansion of the zafar of the left piriform sinus. The esophagus is normal without mass or stric ture. Esophageal motility is within normal limits for age with mild weakening of the primary and seco ndary peristaltic waves in the mid esophagus resulting in mild delayed clearance of contrast from eso phagus. There is a small sliding-type hiatal hernia with gastroesophageal junction approximately 3 si milar both levels the diaphragm.. There was no gastroesophageal reflux with provocative maneuvers. Th e stomach and proximal small bowel are normal. IMPRESSION: 1. Asymmetric decreased over expansion of the lateral wall the left piriform sinus with rest expirati on against pressure which raises the possibility of either intrinsic or extrinsic mass. Consider dougie ngoscopy for direct visualization and/or neck CT with contrast for further evaluation. Line 2. Small sliding-type hiatal hernia. Reviewed, dictated and finalized at location A. IMPRESSION: 1. Asymmetric decreased over expansion of the lateral wall the left piriform si nus with rest expiration against pressure which raises the possibility of eithe r intrinsic or extrinsic mass. Consider laryngoscopy for direct visualization a nd/or neck CT with contrast for further evaluation. Line 2. Small sliding-type hiatal hernia.
== END 2024-01-28 08:33 | disposition home or self-care (01) ==
PROVIDERS: PCP Family Medicine; Visit Provider Nurse Practitioner Family
DX: R13.10 Dysphagia, unspecified (principal); K44.9 Diaphragmatic hernia without obstruction or gangrene
CPT/HCPCS: 74246

== ENCOUNTER 2024-02-11 10:23 | Outpatient (CLI) | payer BC, SELFPAY ==
--- NOTE | ~2024-02-11 | CT_ITS ---
CT soft tissue neck w con Ordering provider: LISA Swain History: 68 years Female with . R13.10 - Dysphagia, unspecified . Comparison: None. Technique: CT soft tissues neck was performed with contrast. . Automated exposure control and iterat abdifatah reconstruction technique were employed. The dose-length product was 505.29 mGy-cm. 75 mL Omnipaqu e 350 was given IV. Findings: No definite abnormality seen in the esophagus. Slight thickening of the wall cannot be excluded. LOWER HEAD: The visualized brain parenchyma, optic globes/orbits and mastoids are normal. The visua lized paranasal sinuses are well aerated. SALIVARY GLANDS: Normal. THYROID: Not demonstrated. SUPRAHYOID DEEP SPACES: Normal. CAROTID ARTERIES: Normal. JUGULAR VEINS: Normal. TONSILS: Normal. ORAL CAVITY: Partially obscured by dental amalgam but normal as visualized. PHARYNX, LARYNX AND TRACHEA: Patent and normal. No prevertebral soft tissue swelling. SUPERFICIAL SOFT TISSUES: Normal. No lymphadenopathy or neck mass. THORACIC INLET/VISUALIZED UPPER CHEST: Normal. SKELETAL: Prominent osteophytes seen at the level of C5-C6 and C6-C7 anteriorly. Age appropriate dege nerative changes. IMPRESSION: 1. Slight thickening of the esophagus wall. Otherwise, No definite abnormality seen. 2. The thyroid gland is not well demonstrated. Clinical correlation advised. 3. Prominent osteophytes at the level of C5 since the Reviewed, dictated and finalized at location A.
[2024-02-11 10:47] LABS: Estimated Glomerular Filt Rate > 60
== END 2024-02-11 10:24 | disposition home or self-care (01) ==
LOC: ANHIMG 10:26
PROVIDERS: PCP Family Medicine; Visit Provider Nurse Practitioner Family
DX: R13.10 Dysphagia, unspecified (principal); R93.3 Abnormal findings on diagnostic imaging of other parts of digestive tract
CPT/HCPCS: 70491; Q9967

== ENCOUNTER 2024-03-12 16:15 | Outpatient (RCR) | payer BC, SELFPAY | END 2024-03-16 14:35 | disposition home or self-care (01) | LOC: ANHCPREHAB 16:15 | PROVIDERS: PCP Family Medicine; Visit Provider Internal Medicine | DX: Z95.5 Presence of coronary angioplasty implant and graft (principal) | CPT/HCPCS: 93798 ==

== ENCOUNTER 2024-05-04 12:30 | Outpatient (RCR) | payer BC, SELFPAY ==
--- NOTE | 2024-04-14 15:15 | STOPEVAL1 ---
Assessment and note entered by Pamela Hwang, BUDGET TECHNICIAN Evaluation Information Assessment Status Evaluation ICD-10 Condition Codes (ST) R13.13,Dysphonia R49.0 Subjective Information The patient reports that her voice is very raspy right now, that it can even cut out by the end of the day. She states she has a history of a deep sultry voice but now she cannot even reach levels of talking at this time. She said that her voice issues have been going on for a period of time, increasingly raspy but not strained or cutting out like it does not. She also reports that about 15 years ago, she had a swallowing evaluation and that she was told that her right side was not working with her left side. She stated that in the past 6-8 months, she has had issues so extreme that her children have had to do the Heimlich on her. She reports she does not choke on liquids but if she is taking medications, she must take one pill (capsule size) at a time, that if she takes more one or a large pill, it may get caught in her throat and won't go down. She also stated she must cut her meat into very small pieces. Patient stated, Sometimes it's so much work, I don't want to eat it. When asked about her voice, patient stated that she feels it is raspy, strained, like it breaks up or cuts out on me. She stated that by the end of every day, she has a very hard time voicing. 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 Reported Pain Level Pain Score 0: Self Report Assessment ST Clinical Summary BEDSIDE SWALLOW EVALUATION AND VOICE EVALUATION Patient reports history of difficulty swallowing including becoming choked on solids such that she would need her children to do the Heimlich manuever. She also reported that medications in capsule form also frequently become stuck on her tongue or in her throat requiring excess sips of water to clear. Along with this, patient reports a voice disorder she characterizes as raspy with her voice cutting in and out or breaking by the end of the day. She reported that when she goes out to eat in the evening, her friends have to sit right next to her to hear her speaking because she will lose the s
--- NOTE | 2024-04-14 15:21 | OPREHPOC ---
Outpatient Therapy Plan of Care This is a Multidisciplinary Plan of Care that may contain components documented by all disciplines (PT, OT, and ST.) ST Goal 1 Goal / Goal Update 1. Patient will voice and demonstrate anatomy and physiology related to swallowing impairment, voicing, treatment plan, home exercise program, compensatory programs, and risks and benefits related to direct Speech Therapy tasks Target Visit [address] Problem 2 ST Problem #[address] Goal 1 Goal / Goal Update 1. Patient will utilize all components of clear speech including easy onset, yawn-sigh technique and changing pitch technique to reduce stress on the vocal cords and therefore improving vocal quality 90% of the time in sentences single words, and short phrases/sentences. 2. Patient will utilize all components of clear speech including easy onset, yawn-sigh technique and changing pitch technique to reduce stress on the vocal cords and therefore improving vocal quality 90% of the time in sentences 5-9 words in length. 3. Patient will utilize all components of clear speech including easy onset, yawn-sigh technique and changing pitch technique to reduced stress on the vocal cords and therefore improving vocal quality 90% of the time at the conversational level. 4. Patient will demonstrate good understanding of vocal hygiene program and laryngeal relaxation techniques to reduce the tension in the larynx/ laryngeal area. Target Visit [address] Problem #[address] Goal 1 Goal / Goal Update 1. The patient will complete base of tongue retraction exercises 10 or more times to improve squeezing of the base of tongue in order to invert the epiglottis and close the airway evidenced on repeat MBS when appropriate. 2. Patient will complete base of tongue retraction exercises along with hard, effortful swallows and swallows with chin tuck against resistance 10 reps each session with good strength. 3. Patient will complete hard, effortful swallows in order to improve the strength of the swallow for improved airway protect
--- NOTE | 2024-05-06 10:57 | STOPDC ---
Assessment and note entered by Pamela Hwang, EMR ANALYST Reported Pain Level Pain Score 0: Self Report Assessment ST Clinical Summary SPEECH THERAPY TREATMENT AND DISCHARGE SUMMARY Patient was seen for an initial evaluation and treatment sessions focusing on improving vocal quality and reducing risk for aspiration/choking. She was instructed in use of vocal hygiene program, safe swallowing strategies, and swallowing strengthening exercises, use of head flexion, and strategies for swallowing oral medications with ease. Patient voiced and demonstrated good response to instruction and at time of discharge, she exhibited no signs of hoarseness or other voice or swallowing issues. Today the patient's voice was assessed and it was noted that at time of discharge, patient's vocal loudness had increased by 2-3 decibels, average, and voice pitch had raised from 180 to 208 hz, average, which is more in line with females. Patient was discharged with home program established and goals achieved. Plan of Care ST Services Indicated No
== END 2024-05-06 12:25 | disposition home or self-care (01) ==
LOC: ANHST 12:30
PROVIDERS: PCP Family Medicine; Visit Provider Nurse Practitioner Family
DX: R13.10 Dysphagia, unspecified (principal); J38.3 Other diseases of vocal cords; M62.89 Other specified disorders of muscle
CPT/HCPCS: 92507; 92524; 92526; 92610

== ENCOUNTER 2024-06-05 13:15 | Outpatient (CLI) | payer BC, SELFPAY ==
--- NOTE | ~2024-06-05 | XR_ITS ---
EXAMINATION: XR knee RT 3V DATE: 06/05/2024 13:43 INDICATION: Presence of right artificial knee joint. Right knee pain. TECHNIQUE: 3 views of right knee including standing views were obtained. COMPARISON: Right knee radiographs 09/05/2023 FINDINGS: There is a total right knee arthroplasty with patellar resurfacing in near-anatomic alignme nt. No fracture. No periprosthetic lucency to suggest loosening or infection. No knee joint effusion. IMPRESSION: 1. Total right knee arthroplasty in near-anatomic alignment. Reviewed, dictated and finalized at location A. FORM OPERATIONS DIRECTOR
--- NOTE | ~2024-06-05 | XR_ITS ---
EXAMINATION: XR hip RT 2V w AP pelvis DATE: 06/05/2024 13:43 INDICATION: Right hip pain. TECHNIQUE: An anteroposterior view the pelvis and 2 views of right hip on 3 radiographs were obtained . COMPARISON: None. FINDINGS: Alignment is normal. No fracture. There is severe lower lumbar spondylosis. There is mild o steoarthritis of the hips. IMPRESSION: 1. Mild osteoarthritis of the hips. Reviewed, dictated and finalized at location A. ACCOUNTANT
--- NOTE | ~2024-06-05 | XR_ITS ---
EXAMINATION: XR knee LT min 4V DATE: 06/05/2024 13:43 INDICATION: Left knee pain. TECHNIQUE: 4 views of left knee including standing views were obtained. COMPARISON: None. FINDINGS: Alignment is normal. No fracture. There is mild tricompartmental osteoarthritis. No knee nahum int effusion. IMPRESSION: 1. Mild left knee osteoarthritis. Reviewed, dictated and finalized at location A. NING AND DEVELOPMENT SPECIALIST
== END 2024-06-05 13:16 | disposition home or self-care (01) ==
PROVIDERS: PCP Family Medicine; Visit Provider Orthopaedic Surgery
DX: Z96.651 Presence of right artificial knee joint (principal); M17.12 Unilateral primary osteoarthritis, left knee; M16.0 Bilateral primary osteoarthritis of hip
CPT/HCPCS: 73502; 73562; 73564

== ENCOUNTER 2025-01-21 15:00 | Outpatient (CLI) | payer BC, SELFPAY ==
--- NOTE | ~2025-01-21 | MM_ITS ---
EXAMINATION: MM screening joni BI w gricelda HISTORY: Screening mammogram, family history of breast cancer in her sister. TECHNIQUE: Craniocaudal and mediolateral oblique 3-D tomosynthesis images were obtained and synthetic 2-D images were generated. CAD analysis was submitted and interpreted. COMPARISON: 01/07/2024, 01/04/2023, 07/10/2021 BREAST PARENCHYMAL COMPOSITION:Not Dense. There are scattered areas of fibroglandular density. FINDINGS: No suspicious mass, calcification, or architectural distortion are identified in either omar ast to suggest malignancy. There has been no suspicious interval change. IMPRESSION: No mammographic evidence of malignancy. Recommend routine screening mammography in one year. BI-RADS Category 1: Negative Reviewed, dictated and finalized at location .
--- OUTSIDE RECORDS SUMMARY | 2025-01-21 15:05 | XMS_ITS | Referral Summary ---
Author Organization [facility] Address [facility] [place] [address] Care Team Providers Care Director Of Investigations Name Role Phone Mary Reeves MD Primary Care Provider [phone] Encounters Date Type Department Care Team Description 12/04/2024 Telephone [facility] Medical [facility] Cardiology [address] [place] [phone] Smiley Magaña MD 11/23/2024 Telephone [facility] Cardiology [address] [place] [phone] Smiley Magaña MD from Last 3 Months Allergies Active Allergy Reactions Criticality Noted Date Comments Metformin Rash,Other (See comments),Anaphylaxis High 04/29/2012 Reaction: Rash, Throat Swelling, Medications Dexcom G6 Transmitter device 1 Active cyanocobalamin (Vitamin B-12) 1,000 mcg tablet Vitamin B12 A ctive gabapentin (NEURONTIN) 300 mg capsule Take by mouth Patient takes 300 mg QAM, 600 mg QPM, 1200 mg QHS 1 1 Active HumaLOG 100 unit/mL vial for injection 1 Active Omnipod Dash 5 Pack Pod cartridge 1 Active Linzess 145 mcg capsule 1 Active montelukast (SINGULAIR) 10 mg tablet 1 Active semaglutide (Ozempic) 0.25 mg or 0.5 mg(2 mg/1.5 mL) pen injector injection 0.5 mg Active VITAMIN B COMPLEX ORAL Take by mouth Act abdifatah aspirin 81 mg chewable tablet Baby Aspirin OD Active Dexcom G6 Sensor device 2 Active ergocalciferol (VITAMIN D) 50,000 unit capsule Take 1 capsule (50,000 Units total) by mouth once a week Active Farxiga 10 mg tablet 4 Active mirabegron ER (MYRBETRIQ) 25 mg tablet extended release 24 hr 4 Active Euthyrox 88 mcg tablet Take 1 tablet (88 mcg total) by mouth seaport planning manager before breakfast [address] (PROTONIX) 40 mg EC tablet Take 1 tablet (40 mg total) by mouth daily 90 tablet 3 5 08/13/19 26 Active irbesartan (AVAPRO) 75 mg tablet Take 1 tablet (75 mg total) by mouth daily 90 tablet 3 5 Active rosuvastatin (CRESTOR) 20 mg tabletIndication s:Coronary artery disease involving [place] coronary artery of [place] heart without angina pectoris Take 1 tablet (20 mg total) by mouth daily 90 tablet 3 5 Active Active Problems Problem Noted Date Diagnosed Date Essential hypertension 08/13/2024 Mixed hyperlipidemia 08/13/2024 History of non-ST elevation myocardial infarctio n (NSTEMI) 11/14/2023 Coronary artery disease invo lving [place] coronary artery of [place] heart without angina pectoris 11/14/2023 Presence of stent in coronary artery 11/14/2023 Diabetic polyneuropathy asso ciated with type 2 diabetes mellitus 04/12/2021 Assessment & Plan (04/12/2021 12:05 PM CDT): Patient has antecedent history of diabetic peripheral neuropathy for which he uses gabapentin for treatment of neuropathic pain with good tolerability and successful efficacy. Medications being renewed by PCP at this time. Diplopia 06/16/2013 Assessment & Plan (04/12/2021 12:05 PM CDT): Patient describes about a 5 week history of abrupt onset and gradually improved painless binocular horizontal diplopia worse with low turning to the left not associated with ptosis or other visual abnormality. There is no refractive change. After 5 weeks his symptoms abated have not returned. 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 I have reviewed her previous MRI CT and laboratory assessments. At this time she is on aspirin and anti lipid therapy for cerebrovascular prophylaxis. There is no evidence of vasculitis clinically. Observation from the neurological standpoint would be appropriate at this time. She will follow-up in neurology clinic on an as-needed basis. Paralytic strabismus, sixth or abducens nerve pa lsy 06/16/2013 Social History Tobacco Use Types Packs/Day Years Used Date Smoking Tobacco: Never Smokeless Tobacco: Never Tobacco Cessation:Counseling Given: Not Answered Comments Unknown Sex and Gender Information Value Date Recorded Sex Assigned at Not on file Legal Sex Female 12:30 AM POLYMER ENGINEER Gender Identity Not on file Sexual Orientation Not on file Last Filed Vital Signs Vital Sign Reading Time Taken Comments Blood Pressure 98/58 08/13/2024 11:00 AM POLYMER ENGINEER Pulse 72 08/13/2024 11:00 AM POLYMER ENGINEER Temperature 36.3 C (97.3 F) 04/12/2021 11:23 AM CDT Respiratory Rate - - Oxygen Saturation 99% 08/13/2024 11:00 AM POLYMER ENGINEER Inhaled Oxygen Concentration - - Weight 75.3 kg (166 lb) 08/13/2024 11:00 AM POLYMER ENGINEER Height 149.9 cm (4' 11) 08/13/2024 11:00 AM POLYMER ENGINEER Body Mass Index 33.53 08/13/2024 11:00 AM POLYMER ENGINEER Plan of Treatment Not on file Procedures Procedure Name Priority Date/Time Associated Diagnosis Comments POCT LIPID PANEL Routine 04/16/2024 2:44 PM CDT Lipid screening COLONOSCOPY REPORT 12/17/2013 from Last 3 Months or Most Recently Relevant to Health Maintenance Results * POCT lipid panel (04/16/2024 2:44 PM CDT) Cholesterol, POC 100 mg/dL HDL, POC 41 mg/dL Triglycerides, POC 107 mg/dL LDL Cholesterol POC 40 mg/dL Chol/HDL Ratio, POC - Non-HDL Cholesterol, POC - mg/dL Cholesterol Total, POC 100 mg/dL Capillary blood 04/16/2024 2 :44 PM CDT Shantel Peña NP POINT OF CARE TEST ORDERA BLES Final Result * COLONOSCOPY REPORT (12/17/2013) Anatomical Region Laterality Modality Other Narrative 12/17/2013 Ordered by an unspecified provider. Historical Provider GI PROCEDURE ORDERABLES F inal Result from Last 3 Months or Most Recently Relevant to Health Maintenance Insurance [facility] CHOICE [facility] [place] [employer] Care Teams Director Of Investigations Relationship Specialty Start Date End Date Mary Reeves MD PCP - General Family Medicine 01/30/21
--- OUTSIDE RECORDS SUMMARY | 2025-01-21 15:05 | XMS_ITS | Data Portability ---
Author Organization [place] - [employer], Main Office Address [address] [place] [address] Care Team Providers Care Survey Technologist Name Role Phone TERRY KAUR Primary Care Provider Assessment No assessment recorded. Plan of Treatment Reminders Order Date Submit Date Provider Last Modified By Organization Details Last Modified Time Details Appointments None recorded . Lab HbA1c (hemoglo bin A1c), blood 023 01/25/20 [facility], [address]22 [address], [address], [place], [address], 3 13:21:26 microalb umin/cre atinine, mass ratio, urine 023 01/25/20 [facility], 2022 Brandon [address], [address], [place], [address], 3 13:21:26 CMP, serum or plasma 023 01/25/20 [facility], 2022 Brandon [address], [address], [place], [address], 3 13:21:26 lipid panel, serum 023 01/25/20 [facility], 2022 [address], [place], [address], 3 13:21:27 TSH + free T4, serum 023 01/25/20 [facility], 2022 [address], [place], [address], 3 13:21:27 T3, free, serum or plasma 023 01/25/20 [facility], 2022 Brandon [address], [address], [place], [address], 3 13:21:27 TSH + free T4, serum 023 01/25/20 [facility], 2022 Brandon Myers, [address], [place], [address], 3 13:21:26 T4, free, serum 023 01/25/20 [facility]2022 Brandon [address], [address], [place], [address], 3 13:21:27 Referral None recorded . Procedures None recorded . Surgeries None recorded . Imaging None recorded . Medication Orders None recorded . Patient TargetsNo targets recorded. Patient InstructionsNo instructions recorded. Reason for Referral None Reported. Results Created Date Observation Date Name Description Value Unit Range Abnormal Flag Note LastModifiedBy Organization Detail LastModifiedTime Result Notes None recorded. Problems Name Problem SNOMED Code Status Onset Date Resolution Date Notes Provider Name and Address Organization Details Recorded Time Hypertensive disorder 76415376 Active 2018 Not Available [facility] 3 00:48:12 Hypothyroidis m 45806599 Active 2018 Not Available [facility] 3 00:48:12 Type 2 diabetes mellitus 55456986 Active 2018 Not Available [facility] 3 00:48:12 Hyperlipidemi a 96464428 Active 2018 Not Available [facility] 3 00:48:12 Dyslipidemia 558650835 Active 2022 Katlyn Brink RN [facility], [employer] 3 10:37:52 Well controlled type 2 diabetes mellitus 957456072 Active 2022 Gail Spangler MD [address] [place], [place] [address]maryann, [facility] [address], [place], [address] , [employer] 3 21:20:37 Uncontrolled type 2 diabetes mellitus 953132723 Active 2022 Concha Martinez, MACHELLE null, [employer] 3 14:18:44 Acquired hypothyroidis m 562489427 Active 2022 Gail Spangler MD [address] [facility], [address] [address], [place], [address] , [facility] [employer] [facility] 3 13:19:36 Hypothyroidis m in 918490106 Active 2022 Gail Spangler MD [address] [facility], [address] [address], [place], [address] , [facility] [employer] [facility] 3 13:19:36 Postoperative hypothyroidis m 48732645 Active 2022 Gail Spangler MD [address] [facility], [address] [address], [place], [address] , [facility] [employer] 3 13:19:36 Problem Notes None recorded. Procedures Surgical History Date Name Laterality Status Provider Name and Address Organization Details Recorded Time 1 Knee Surgery completed Not Available [facility] 023 00:43:48 Imaging Results None recorded. Procedure Notes None recorded. Medical Equipment None Reported. Allergies Allergen ID Allergen Name Allergen Category Reaction Reaction Severity Criticality Documentation Date Start Date Code Code System Note Provider Name and Address Organization Details Recorded Time 479 metformin medicatio n anaphylax is Not available Not available 09/19/2022 6809 RxNorm Not Available [facility] 3 00:52:29 Medications Name Sig Start Date Stop Date Status Note LastModified by Organization Details LastModified Time Prescript ion - Prior Authoriza tion Request 01/24 completed Not Available Not Available Not Available cyclobenz aprine 10 mg tablet TAKE 1 TABLET BY MOUTH 1 TIME NEEDED FOR MUSCLE SPASM 01/24 completed Not Available Not Available Not Available amoxicill in 500 mg capsule TK FOUR CS PO 1 HOUR B DAPP 01/24 completed Not Available Not Available Not Available fluconazo le 150 mg tablet 05/01 completed Not Available Not Available Not Available hydrocodo ne 5 mg-acetam inophen 325 mg tablet TAKE 1 TABLET BY MOUTH EVERY 6 HOURS NEEDED FOR PAIN 01/24 completed Not Available Not Available Not Available meloxicam 15 mg tablet TAKE ONE-HALF TABLET BY MOUTH TWICE DAILY WITH FOOD 01/24 completed Not Available Not Available Not Available prednison e 20 mg tablet TAKE 2 TABLETS BY MOUTH EVERY DAY FOR 5 DAYS 03/31 completed Not Available Not Available Not Available prednison e 5 mg tablet TAKE 1 TABLET BY MOUTH DAILY FOR 3 WEEKS 01/24 completed Not Available Not Available Not Available phentermi ne 37.5 mg tablet TAKE 1 TABLET BY MOUTH EVERY DAY 06/23 completed Not Available Not Available Not Available tramadol 50 mg tablet TAKE 1 TABLET BY MOUTH EVERY 6 HOURS NEEDED FOR PAIN 01/24 completed Not Available Not Available Not Available amoxicill in 500 mg tablet TAKE 4 TABLETS BY MOUTH 1 HOUR PRIOR TO DENTAL APPOINTM ENT 01/24 completed Not Available Not Available Not Available oxycodone -acetamin ophen 5 mg-325 mg tablet TAKE 1 TO 2 TABLETS BY MOUTH EVERY 4 TO 6 HOURS NEEDED FOR PAIN. MAX OF 6 TABLETS DAILY 01/24 completed Not Available Not Available Not Available Humalog U-100 Insulin 100 unit/mL subcutane ous solution INJECT UP TO 100 UNITS DAILY 2022 active Not Available Not Available Not Avai lable dexametha sone 1 mg tablet Take 1 tablet as needed by oral route at bedtime for 1 day. active take dexa tablet at 10 pm night before 8 am cortisol Not Available Not Available Not Available cephalexi n 500 mg capsule TAKE 1 CAPSULE BY MOUTH EVERY 12 HOURS FOR 7 DAYS 01/24 completed Not Available Not Available Not Available simvastat in 20 mg tablet active Not Available Not Available Not Available prednison e 50 mg tablet 05/01 completed Not Available Not Available Not Available gabapenti n 300 mg capsule active Not Available Not Available Not Available amoxicill in 250 mg capsule TAKE 1 CAPSULE BY MOUTH EVERY 8 HOURS FOR 10 DAYS 01/24 completed Not Available Not Available Not Available monteluka st 10 mg tablet active Not Available Not Available Not Available Novolog U-100 Insulin aspart 100 unit/mL subcutane ous solution ADMINIST ER 100 UNITS UNDER THE SKIN EVERY DAY DIRECTED 06/23 completed Not Available Not Available Not Available methylpre dnisolone 4 mg tablets in a dose pack FOLLOW PACKAGE DIRECTIO NS 01/24 completed Not Available Not Available Not Available irbesarta n 300 mg tablet TAKE 1 TABLET BY MOUTH EVERY MORNING active Not Available Not Available No t Available levothyro xine 112 mcg tablet TAKE 1 TABLET DAILY IN THE MORNING active Not Available Not Available No t Available amoxicill in 875 mg-potass ium clavulana te 125 mg tablet 05/01 completed Not Available Not Available Not Available Vitamin D 50,000 unit capsule Take 1 capsule every week by oral route. 2018 active Not Available Not Available Not Avai lable Pneumovax -23 25 mcg/0.5 mL injection syringe ADM 0.5ML IM UTD active Not Available Not Available No t Available nitrofura ntoin monohydra te/macroc rystals 100 mg capsule TAKE 1 CAPSULE BY MOUTH EVERY 12 HOURS FOR 7 DAYS 01/24 completed Not Available Not Available Not Available Baby Aspirin OD 2018 active Not Available Not Available Not Avai lable BD Ultra-Fin e Short Pen Needle 31 gauge x 5/16 active Not Available Not Available Not Available BD Ultra-Fin e Original Pen Needle 29 gauge x 1/2 active Not Available Not Available Not Available cholecalc iferol (vitamin D3) 1,250 mcg (50,000 unit) capsule active Not Available Not Available Not Available Lantus Solostar U-100 Insulin 100 unit/mL (3 mL) subcutane ous pen 45 UNITS MORNING AND AT BEDTIME 07/10 completed Not Available Not Available Not Available Humalog KwikPen (U-100) Insulin 100 unit/mL subcutane ous 14 UNITS WITH EACH MEAL 07/10 completed Not Available Not Available Not Available [facility] 65 mg tablet Take 1 tablet every day by oral route. 07/10 completed Not Available Not Available Not Available Tirosint 125 mcg capsule Take 1 capsule every day by oral route in the morning for 90 days. 12/02 completed Not Available Not Available Not Available Tirosint 112 mcg capsule TAKE 1 CAPSULE DAILY IN THE MORNING 03/31 completed Not Available Not Available Not Available Tirosint 137 mcg capsule Take 1 capsule every day by oral route in the morning for 30 days. active Not Available Not Available No t Available OneTouch Verio test strips Take one strip and check blood glucose 6 times daily active Not Available Not Available No t Available melatonin 10 mg tablet Take by oral route. 06/23 completed Not Available Not Available Not Available Linzess 145 mcg capsule active Not Available Not Available Not Available Trulicity 1.5 mg/0.5 mL subcutane ous pen injector Inject 1.5 mg every week by subcutan eous route in the morning for 90 days. 03/31 completed Not Available Not Available Not Available Vitamin B12 2018 active Not Available Not Available Not Avai lable DHEA 50 mg tablet Take 1 tablet every day by oral route. 2018 active Not Available Not Available Not Avai lable OneTouch Verio Flex Meter 01/24 completed Not Available Not Available Not Available Linzess 72 mcg capsule TK 1 C PO D BEFORE BREAKFAS T. TK ON AN EMPTY STOMACH AT LEAST 30 MINUTES PRIOR TO FIRST MEAL OF THE DAY active Not Available Not Available No t Available Ozempic 0.25 mg or 0.5 mg (2 mg/1.5 mL) subcutane ous pen injector Inject 0.5 mg every week by subcutan eous route at dinner for 90 days. 01/24 completed Not Available Not Available Not Available Dexcom G6 Sensor device CHANGE EVERY 10 DAYS active Not Available Not Available No t Available Dexcom G6 Final Inspector USE UTD active Not Available Not Available Not Available Dexcom G6 Transmitt er device USE DIRECTED BY PRESCRIB ER OR PACKAGE INSTRUCT IONS active Not Available Not Available No t Available Omnipod Dash Pods (Gen 4) subcutane ous cartridge CHANGE POD EVERY 2 DAYS active Not Available Not Available No t Available Fluzone High-Dose Quad 2020- (PF) 240 mcg/0.7 mL IM syringe ADM 0.7ML IM UTD active Not Available Not Available No t Available BinaxNOW COVID-19 Ag Self Test kit Use as Directed on the Package active Not Available Not Available No t Available Ozempic 0.25 mg or 0.5 mg (2 mg/3 mL) subcutane ous pen injector INJECT 0.5 MG UNDER THE SKIN EVERY WEEK DIRECTED 2022 active Not Available Not Available Not Avai lable Vitals Date Recorded Body height Body mass index (BMI) Body weight Body temperature Heart rate Systolic And Diastolic Provider Name and Address Organization Details Last Updated DateTime 3 152.4 cm 39.4 kg/m2 65413.9 4 g 97.5 [degF] 68 /min 139/75 mm[Hg] MACHELLE Amador [place] - [facility] 3 12:49:20 Date Recorded Body mass index (BMI) Body height Oxygen saturation Oxygen saturation in Arterial blood by Pulse oximetry Heart rate Body temperature Body weight Systolic And Diastolic Provider Name and Address Organization Details Last Updated DateTime 2 37.1 kg/m2 152.4 cm 98 % 98 % 77 /min 97.1 [degF] 12935.2 7 g 170/90 mm[Hg] Not Available [facility] 3 00:47:51 Social History Question Answer Notes LastModified by [employer] ion Details LastModified Time Tobacco Smoking Status Never Smoker Not Available [facility] 09/19/2022 00:43:35 Do You Have An Advance Directive? No [id number] Information not available 09/19/2022 Are You Blind Or Do You Have Difficulty Seeing? No MIGRATION.528054 8102 Information not available 09/19/2022 What Is Your Level Of Caffeine Consumption? Heavy MIGRATION.879329 3782 Information not available 09/19/2022 How Much Tobacco Do You Chew? None MIGRATION.444139 1272 Information not available 09/19/2022 In The 14 Days Before Symptom Onset, Have You Had Close Contact With A Laboratory-confirm ed COVID-19 While That Case Was Ill? No MIGRATION.[id number] 8492 Information not available 09/19/2022 In The 14 Days Before Symptom Onset, Have You Had Close Contact With A Person Who Is Under Investigation For COVID-19 While That Person Was Ill? No MIGRATION.592454 0505 Information not available 09/19/2022 Are You Deaf Or Do You Have Serious Difficulty Hearing? No MIGRATION.392330 9726 Information not available 09/19/2022 What Type Of Diet Are You Following? REGULAR MIGRATION.678006 9112 Information not available 09/19/2022 Which Illicit Or Recreational Drugs Have You Used? None MIGRATION.500179 7710 Information not available 09/19/2022 What Is The Highest Grade Or Level Of School You Have Completed Or The Highest Degree You Have Received? TW52282-0 MIGRATION.926055 7316 Information not available 09/19/2022 Do You Have A Medical Power Of Ingot Passer? No MIGRATION.292806 7260 Information not available 09/19/2022 What Is Your Relationship Status? MIGRATION.803679 6562 Information not available 09/19/2022 How Much Tobacco Do You Smoke? No MIGRATION.687961 7365 Information not available 09/19/2022 Has Tobacco Cessation Counseling Been Provided? No MIGRATION.179984 7331 Information not available 09/19/2022 Have You Recently Traveled Abroad? No MIGRATION.087941 4913 Information not available 09/19/2022 Do You Have Difficulty Walking Or Climbing Stairs? No MIGRATION.798154 9262 Information not available 09/19/2022 Do You Have Any Dietary Restrictions? No MIGRATION.141469 3560 Information not available 09/19/2022 Sex: Female Functional Status Question Answer Note LastModified by [employer] ion Details LastModified Time Do you use any illicit or recreational drugs? No MIGRATION.359897 6762 Information not available 09/19/2022 Do you or have you ever used any other forms of tobacco or nicotine? No MIGRATION.715376 4244 Information not available 09/19/2022 What is your level of alcohol consumption? None MIGRATION.084343 5908 Information not available 09/19/2022 Do you or have you ever used smokeless tobacco? Never used smokeless tobacco MIGRATION.506286 6582 Information not available 09/19/2022 Do you have transportation difficulties? No MIGRATION.282110 4332 Information not available 09/19/2022 Are you able to walk? YESWOREST MIGRATION.009689 8544 Information not available 09/19/2022 Do you have difficulty doing errands alone? No MIGRATION.693236 5870 Information not available 09/19/2022 Are you able to care for yourself? 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 No MIGRATION.701452 5422 Information not available 09/19/2022 Do you or have you ever used e-cigarettes or vape? Never used electronic cigarettes MIGRATION.376470 7617 Information not available 09/19/2022 What is your exercise level? None MIGRATION.813894 8473 Information not available 09/19/2022 Mental Status Question Answer Note LastModified by Organizat ion Details LastModified Time Do you have difficulty concentrating, remembering or making decisions? No MIGRATION.[id number] 6 Information not available 09/19/2022 Family History Nothing Reported. Medical History Condition Response DIABETES, TYPE Y HIGH CHOLESTEROL / HYPERLIPIDEMIA Y HYPERTENSION Y Gynecological HistoryNo gynecological history recorded. Obstetrics History GPAL:G 0 P 0 0 0 0 Past Encounters Encounter ID Performer Location Encounter Start Date Encounter Closed Date Diagnosis/Indication Diagnosis SNOMED-CT Code Diagnosis ICD10 Code Diagnosis Note [id number] MD JAYLIN Shah [facility] [address] [place] [address] 09/20/2020 00:00:00 09/20/2020 09:42:56 [id number] MD JAYLIN Shah [facility] [address] [place] [address] 12/02/2020 00:00:00 12/02/2020 15:21:07 [id number] Gail Spangler MD _ATHSURI_M IGRATION_ DEFAULT_1 _1 , 01/26/2021 00:00:00 01/26/2021 16:33:52 [id number] Gail Spangler MD Li_MARTHA [facility] [address] [place] [address] 03/31/2021 00:00:00 03/31/2021 15:06:05 [id number] MD JAYLIN Shah [facility] [address] [place] [address] 06/23/2021 00:00:00 06/23/2021 15:06:11 [id number] MD JAYLIN Shah [facility] [address] [place] [address] 10/27/2021 00:00:00 10/27/2021 14:49:02 [id number] MD JAYLIN Shah [facility] [address] [place] [address] 04/27/2022 00:00:00 04/28/2022 17:07:16 [id number] Gail Spangler MD [facility] [address] [place] [address] 01/24/2023 12:39:36 01/24/2023 15:32:13 Well controlled type 2 diabetes mellitus 515225060 E11.9 a1c of 7.1% down from 7.4%- continue on ozempic but increase to 0.5 mcg once weekly. Continue settings as follows:12 am to 6 am at 1.1 u/hr6 am to noon at 1.5 u/hrnoon to 5 pm at 1.75 u/hr5 pm to 9 pm at 1.4 u/hr9 pm to 12 am at 0.9 u/hr Discussed carb counting and how to read food labels. Recommende d patient to utilize the diabetesfo [employer]MobiCart from the ADA website to help with food preparatio n as this presents ideal carb content per meal so this will make carb counting much easier for patient. Recommende d she incorporat e natural insulin reclamation furnace operator s such as pears, apples, cinnamon, alma and sweet potatoes to help mobilize her endogenous insulin. Recommende d up to 150 minutes of moderate level activity/e xercise weekly. Hypothyroidism 00140803 E03.9 thyroid in range- continue on LT4 112 mcg daily. She was reminded to take her LT4 on empty stomach with glass of water and wait one hour to eat or have her coffee in morning and up to 4 hours if ever taking any heartburn or reflux medication s to help optimize absorption . Discussed paleo like diet with restrictio n of GMOs to help with energy and to optimize absorption of vitamins and minerals and reduce inflammati on. Dyslipidemia 072643333 E 78.5 continue on statin therapy. Spent up to 28 minutes preparing to see the patient (eg, review of tests), obtaining and/or reviewing separately obtained history, performing a medically appropriat e examinatio n and evaluation , counseling and educating the patient, ordering medication s, tests, along with documentin g clinical informatio n in the electronic health record, independen tly interpreti ng results and communicat ing results to the patient. RTC in 4-6 months. Patient was provided a handwritte n lab order which contains our fax number. If she chooses to go outside of the [facility] system to obtain labwork she was advised to provide our fax number and my informatio n to the lab she will be obtaining labwork from in order to have her labs properly forwarded over for me to review so there is no loss of follow up due to use of outside network. She was also advised to contact our clinic informing us that she has completed her labwork so we are aware we will need to reach out to the appropriat e laboratory to request her results be forwarded to us so I might have the ability to review and make further medical decision making in her case. She voiced understand ing. Health Concerns Section Related Observation LastModified by Organization Detai ls LastModified Time None Recorded Concern Status LastModified by Organization Details LastModified Time None Recorded Advance Directives Directive N: Payers Insurance Date Sequence Insurance Name Policy Number Policy Mehta Covered Member ID Mehta Member ID Guarantor Name 04/30/2023 [facility] Jael Nieto SELF SELF Jael Nieto 04/30/2023 1 [employer] [id number] Jael Nieto [id number] Jael Nieto Notes Date Note Type Note Provider Name and Address Organization Details Recorded Time 01/24/2023 text/html 67 yo female com es in for follow up in management of well controlled type 2 DM (A1C of 7.1%), dyslipidemia and hypothyroidism. last seen in Apr at that time we had patient continue same settings.12 am to 6 am at 1.35 u/hr6 am to noon at 2.1 u/hrnoon to 5 pm 1.4 u/hr5 to 9 pm at 1.45 u/hr9 pm to midnight at 1.05 u/hr we continued ozempic. we continued statin therapy and LT4 112 mcg daily. She has had another surgery on her right knee since her last visit She has gained 12 pounds since her last visit. She is taking the low dose ozempic and tolerating well. She has no nausea or vomiting. She has since dropped her night rate due to mild hypoglycemia. She has since changed settings as follows:12 am to 6 am at 1.1 u/hr6 am to noon at 1.5 u/hrnoon to 5 pm at 1.75 u/hr5 pm to 9 pm at 1.4 u/hr9 pm to 12 am at 0.9 u/hr labs from 01/11:glucose 157 mg/dLCr normalLFT normalTSH of 3.6 uIU/mLFT4 of 1.23 ng/dLFT3 of 2.7 pg/mLa1c of 7.1%microalbumin 8 ug/mg147/73/52/81l ft normalCr normal Gail Spangler MD [address] [facility] [address], [place], [address], [facility] 01/24/2023 15:24:50 OBGyn Episode No OBEpisode recorded.
--- OUTSIDE RECORDS SUMMARY | 2025-01-21 15:05 | XMS_ITS | Clinical Summary ---
Author Organization [facility] Address [address] [place] [address] Care Team Providers Care Panman Name Role Phone Sergio Lobo Unavailable Unavailable Mary Reeves MD Primary Care Provider [phone] Source Comments [facility],non-owned Affiliates and Associated Physician Practices is amultiple site organization consisting of ambulatory clinics and hospital sitesin [place], [place], [place] and [place]. This disclosure is being madepursuant to the Care Everywhere program and may not contain all information available regarding this patient. Last updated 18.[facility] Allergies Active Allergy Reactions Criticality Noted Date Comments Metformin Rash Low 04/29/2012 Nsaids Other 01/21/2022 Kidney failure Medications * Be aware that medications may not be up to date on this document. Alwaysverify current medications with the patient. montelukast (SINGULAIR) 10 MG tabletIndication s:Seasonal Allergic Rhinitis Take 10 mg by mouth once daily. Indications: Hayfever Active irbesartan (AVAPRO) 300 MG tablet Take 300 mg by mouth once daily Active BABY ASPIRIN PO Baby Aspirin OD Active cyanocobalamin (VITAMIN B-12) 1000 MCG tablet Vitamin B12 Ac tive vitamin D, ergocalciferol, (DRISDOL) 1.25 MG (75068 UT) capsule 1 tablet every 7 days Active gabapentin (NEURONTIN) 300 MG capsule 7 capsules Active insulin aspart (NOVOLOG) vial Novolog U-100 Insulin aspart 100 unit/mL subcutaneous solution INJECT 90 UNITS A DAY INTO INSULIN PUMP Active TIROSINT 125 MCG capsule 0 Active Melatonin 10 MG melatonin 10 mg tablet Take by oral route. Active simvastatin (ZOCOR) 20 MG tablet 0 Active B COMPLEX-C PO Activ e DHEA 25 MG Take 2 tablets by mouth Active linaCLOtide (LINZESS) 145 MCG capsuleIndicatio ns:Constipation, unspecified constipation type Take 1 (one) capsule by mouth daily before breakfast Take on an empty stomach at least 30 minutes prior to first meal of the day. 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 Other constipation 02/01/2020 Family History Medical History Relation Name Comments CAD (Coronary Artery Disease) Brother 1 Hypertension Brother 2 CAD (Coronary Artery Disease) Father Hypertension Father Colon Cancer after age 50 or unknown Maternal Grandmot her Diabetes Maternal Grandmother Depression Mother Diabetes Mother Hypertension Mother Diabetes Paternal Grandfather Breast Cancer after age 50 or unknown Paternal Grandmo ther Relation Name Status Comments Brother 1 Brother 2 Father Maternal Grandmother Mother Paternal Grandfather Paternal Grandmother Social History Tobacco Use Types Packs/Day Years Used Date Smoking Tobacco: Never Smokeless Tobacco: Never Alcohol Use Standard Drinks/Week Comments Yes 0 (1 standard drink = 0.6 oz pur e alcohol) rare Comments No Sex and Gender Information Value Date Recorded Sex Assigned at Not on file 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 Gender Identity Not on file Sexual Orientation Not on file Last Filed Vital Signs Vital Sign Reading Time Taken Comments Blood Pressure 125/66 01/21/2022 10:37 PM CDT Pulse 108 01/21/2022 10:37 PM CDT Temperature 36.4 C (97.5 F) 01/21/2022 10:37 PM CDT Respiratory Rate 16 01/21/2022 10:37 PM CDT Oxygen Saturation 99% 01/21/2022 10:37 PM CDT Inhaled Oxygen Concentration - - Weight 59 kg (130 lb) 01/21/2022 10:37 PM CDT Height 157.5 cm (5' 2) 01/21/2022 10:37 PM CDT Body Mass Index 23.78 01/21/2022 10:37 PM CDT Plan of Treatment Health Maintenance Due Date Last Done Comments BONE DENSITY TESTING 1954 COLOGUARD (AGES 45-75) - COL ON CA SCREENING 1954 COLON MONITORING 1954 COLONOSCOPY - COLON CA SCREENING 1954 CT COLONOGRAPHY - COLON CA SCREENING 1954 Colorectal Cancer Screening 1954 FIT - COLON CA SCREENING 1954 FLEX SIG - COLON CA SCREENING 1954 MAMMOGRAM 1954 HEPATITIS C SCREENING 04/02/1972 DTAP/TDAP/TD VACCINES (1 - Tdap) 1973 PNEUMOCOCCAL VACCINE 50+ (1 of 1 - PCV) 2004 ZOSTER VACCINE (1 of 2) 2004 SCREENING FOR DIABETES 02/01/2020 2, 05/05/2012, 05/05/2012 COVID-19 VACCINE (4 - 2023-2 5 season) 2024 04/19/2021, 10/04/2020, 09/13/2020 DEPRESSION SCREENING 07/22/2024 INFLUENZA VACCINE (Season Ended) 2025 04/28/2021, 05/17/2020, 05/14/2015 Respiratory Syncytial Virus (RSV) Vaccine Pt: or over 60 yrs (1 - 1-dose 75+ series) 2029 HEPATITIS B VACCINE Aged Out No longe r eligible based on patient's age to complete this topic HIB VACCINE Aged Out No longer eligi ble based on patient's age to complete this topic HPV VACCINE Aged Out No longer eligi ble based on patient's age to complete this topic MENINGOCOCCAL (Group B) VACCINE SHARED DECISION-MAKING Aged Out No longer eligible based on patient's age to complete this topic MENINGOCOCCAL GROUPS A/C/Y/W VACCINE Aged Out No longer eligible b ased on patient's age to complete this topic Goals Goal Patient Goal Type Associated Problems Recent Progress Patient-Stated? 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) No Dago Simon, JHOAN Note: Expected end date: ongoing Interventions: Take all medications as prescribed Let your doctor know right away about any changes in your medications Make sure to request a refill of your medication at least one week prior to your last dose Procedures Procedure Name Priority Date/Time Associated Diagnosis Comments BASIC METABOLIC PANEL (CALCIUM TOTAL) STAT 05/05/2012 9:48 AM CDT from Last 3 Months or Most Recently Relevant to Health Maintenance Results * (ABNORMAL) BASIC METABOLIC PANEL (CALCIUM TOTAL) (05/05/2012 9:48 AM CDT) Sodium 135(L) 136 - 145 mmol/L [facility] Potassium 3.9 3.5 - 5.1 mmol/L [facility] Chloride 104 98 - 107 mmol/L [facility] BUN 10 7 - 21.0 mg/dl [facility] Creatinine 0.56 0.5 - 1.3 mg/dl [facility] Glucose 187(H) 65 - 105 mg/dl [facility] CO2 25 22 - 30 mmol/L [facility] Calcium 8.9 8.5 - 10.1 mg/dl [facility] eGFR by MDRD >60 >60 mL/min/1.7 3m2 [facility] Comment eGFR [facility] Comment: The eGFR does not apply to patients who are younger than 18 or older than 70. Blood specimen (specimen) BLOOD SPECIMEN / Unknown 05/05/2012 9:48 AM CDT 05/05/2012 9:58 AM CDT Jeannette Alyce Blair MD LAB - CHEMISTRY ORDERABLES Remedios joseph Result [facility] [address] [place] [address] from Last 3 Months or Most Recently Relevant to Health Maintenance Insurance [facility] Address: [address] [address] MEDICARE Care Teams Panman Relationship Specialty Start Date End Date Mary Reeves MD [address] [place] [address] PCP - General 10/03/22 Sergio Lobo Update Information Nurse Practitioner 08/15/20
--- OUTSIDE RECORDS SUMMARY | 2025-01-21 15:05 | XMS_ITS | Patient Health Record ---
Author Organization [facility] Address [address] [place], [place] [address] Care Team Providers Care Harness Fitter Name Role Phone TERRY KAUR MD Primary Care Provider Shara Davis Unavailable [phone] ALLERGIES Allergen (clinical drug ingredient) Drug/Non Drug [...] day (at bedtime) for 30 day(s) Active PROBLEMS Problem Type ICD Code Onset Dates Problem Status W/U Status Risk SNOMED Code Notes Problem Family history of rheumatoid arthritis (Z82.61) Active confirmed 302233832 Problem Vision changes (H53.9) Active confirmed 489515722 Problem Polyarthralgia (M25.50) Active confirmed 76157070 Problem Encounter for screening for other viral diseases (Z11.59) Active confirmed 942809836 Problem 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) Active confirmed 797721925 Problem Positive anti-CCP test (R76.8) Active confirmed 943075577 PLAN OF TREATMENT Pending Test Test Name Order Date X ray : Hand left- outside order X ray : Hand right- outside order 2020 P-ANCA, C-ANCA 02/24/2021 Hepatitis Panel (4) (DO NOT USE) Eye exam - Plaquenil 03/22/2021 X ray : Foot Left- outside order 021 X ray : Foot Right- outside order 2020 Insurance Providers Payer Name Payer Address Payer Phone Subscriber Number Group Number Insured Name Patient Relationship to Insured Coverage Start Date Coverage End Date Sherine [facility] [address] [place] [address] [id number] Jael Nieto Self - patient is the insured 9 MEDICAL (GENERAL) HISTORY Medical History History ICD Code bowel changes weight gain weight loss Lack of bladder control Hysterectomy migraine headache loss of hearing hoarseness diabetes neuropathy depression Double vision Ringing in ears thyroid disease Surgical History Surgery Date(Month/Year) D & C C section gallbladder surgery hysterectomy bladder surgery
--- OUTSIDE RECORDS SUMMARY | 2025-01-21 15:05 | XMS_ITS | Clinical Summary ---
Author Organization [facility] Address [facility] [place] [address] Care Team Providers Care Doughnut Machine Operator Name Role Phone Mary Reeves MD Primary Care Provider [phone] Allergies Active Allergy Reactions Criticality Noted Date [...] a week Active Farxiga 10 mg tablet 07/24/202 4 Active mirabegron ER (MYRBETRIQ) 25 mg tablet extended release 24 hr 4 Active Euthyrox 88 mcg tablet Take 1 tablet (88 mcg total) by mouth hot dog vendor before breakfast [address] (PROTONIX) 40 mg EC tablet Take 1 tablet (40 mg total) by mouth daily 90 tablet 3 5 08/13/19 26 Active irbesartan (AVAPRO) 75 mg tablet Take 1 tablet (75 mg total) by mouth daily 90 tablet 3 5 Active rosuvastatin (CRESTOR) 20 mg tabletIndication s:Coronary artery disease involving [place] coronary artery of [place] heart without angina pectoris Take 1 tablet (20 mg total) by mouth daily 90 tablet 3 5 Active Active Problems Problem Noted Date Diagnosed Date Essential hypertension 08/13/2024 Mixed hyperlipidemia 08/13/2024 History of non-ST elevation myocardial infarctio n (NSTEMI) 11/14/2023 Coronary artery disease invo lving [place] coronary artery of [place] heart without angina pectoris 11/14/2023 Presence of [...] sixth or abducens nerve pa lsy 06/16/2013 Encounters Date Type Department Care Team Description 12/04/2024 Telephone [facility] [address] [place] [address] Smiley Magaña MD 11/23/2024 Telephone [facility] [address] [place] [address] Smiley Magaña MD from Last 3 Months Surgical History Surgery Date Site/Laterality Comments GALLBLADDER SURGERY Gallbladder Surgery - (Added by Conv) LA TOTAL ABDOMINAL HYSTERECT W/WO RMVL TUBE OVARY Hysterectomy - (Added by Conv) LA DELIVERY ONLY Section - (Added by Conv) LA LIG/TRNSXJ FLP TUBE ABDL/ VAG APPR UNI/BI Tubal Ligation - (Added by Conv) SECTION CHOLECYSTECTOMY HYSTERECTOMY JOINT REPLACEMENT BLADDER SURGERY Medical History Medical History Date Comments Stroke (HCC) Hypertension High cholesterol Neuropathy GERD (gastroesophageal reflux disease) 11/22/2023 Kidney stone Family History Medical History Relation Name Comments Esophageal cancer Brother 1 Family his tory of malignant neoplasm of esophagus - (Added by Conv) Cancer Brother 2 Ronaldo Haberer Heart disease Brother 2 Ronaldo Haberer Diabetes Father Fermin Danielserer Emphysema Father Fermin Danielserer Hearing loss Father Fermin Haberer Heart attack Father Fermin Haberer Parkinsonism Father Fermin Haberer Colon cancer Maternal Grandmother Family history of colon cancer - (Added by Conv) Alzheimer's disease Mother Veronica Haberer Arthritis Mother Veronica Haberer Diabetes Mother Veronica Haberer Hypertension Mother Veronica Haberer Neuropathy Mother Veronica Haberer Stroke Mother Veronica Haberer Breast cancer Other Family history of malignant neoplasm of breast - Relation: Grandmother (Added by Conv) Breast cancer Paternal Grandfather Family history of malignant neoplasm of breast - (Added by Conv) Relation Name Status Comments Brother 1 Brother 2 Ronaldo Haberer Father Fermin Haberer Alive Maternal Grandmother Mother Veronica Haberer Other Paternal Grandfather Social History Tobacco Use Types Packs/Day Years Used Date Smoking Tobacco: Never Smokeless Tobacco: Never Tobacco Cessation:Counseling Given: Not Answered Comments Unknown Sex and Gender Information Value Date Recorded Sex Assigned at Not on file 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 Gender Identity Not on file Sexual Orientation Not on file Obstetrics History Last Filed Vital Signs Vital Sign Reading Time Taken Comments Blood Pressure 98/58 08/13/2024 11:00 AM CHEMICAL WORKER Pulse 72 08/13/2024 11:00 AM CHEMICAL WORKER Temperature 36.3 C (97.3 F) 04/12/2021 11:23 AM CDT Respiratory Rate - - Oxygen Saturation 99% 08/13/2024 11:00 AM CHEMICAL WORKER Inhaled Oxygen Concentration - - Weight 75.3 kg (166 lb) 08/13/2024 11:00 AM CHEMICAL WORKER Height 149.9 cm (4' 11) 08/13/2024 11:00 AM CHEMICAL WORKER Body Mass Index 33.53 08/13/2024 11:00 AM CHEMICAL WORKER Plan of Treatment Health Maintenance Due Date Last Done Comments Albumin Creatinine Ratio, Urine 1954 Breast Cancer Screening-Mammogram 1954 Depression Screening 1954 Fall Risk Assessment 1954 Hemoglobin A1C 1954 Hepatitis C Screening 1954 Osteoporosis Screening-Bone Density Scan 1954 eGFR 1954 Dilated Eye Exam 1954 Foot Exam 1954 Hepatitis B Screening 1972 Zoster Vaccine (1 of 2) 2004 DTaP/Tdap/Td Vaccine (1 - Tdap) 09/24/2009 0 Well Visit 65+ 2019 Pneumococcal vaccine 65+ (2 of 2 - PCV) 05/17/2021 1 , 09/23/2009 Colon Cancer Screening-Colonoscopy 12/18/20232013 Covid-19 Vaccine ( season) 2024, 09/13/2020 Influenza Vaccine (Season Ended) 2025 05/17/20 20, 05/14/2015 Lipid Panel 04/16/2025 04/16/2024 Procedures Procedure Name Priority Date/Time Associated Diagnosis [...] Most Recently Relevant to Health Maintenance Insurance [facility] CHOICE OOS [facility] ACCESS CHOICE Care Teams Doughnut Machine Operator Relationship Specialty Start Date End Date Mary Reeves MD PCP - General Family Medicine 01/30/21
--- OUTSIDE RECORDS SUMMARY | 2025-01-21 15:05 | XMS_ITS | Clinical Summary ---
Author Organization [facility] Address [address] [place] [address] Phone Care Team Providers Care Tamping Machine Operator Road Forms Name Role Phone Mary Reeves MD Primary Care Provider [phone] Allergies Active Allergy Reactions Criticality Noted Date Comments Metformin Anaphylaxis,Other (S ee Comments),Rash High 04/29/2012 Reaction: Rash, Throat Swelling, Medications cholecalcifero l 1,250 mcg (50,000 unit) Capsule cholecalciferol (vitamin D3) 1,250 mcg (50,000 unit) capsule 03/01/20 21 Active cyanocobalamin 1,000 mcg Tablet Vitamin B12 07/24/19 22 Active gabapentin (NEURONTIN) 300 mg/6 mL (6 mL) solution 07/24/19 22 Active insulin lispro (HumaLOG U-100 Insulin) 100 unit/mL vial Humalog U-100 Insulin 100 unit/mL subcutaneous solution 03/25/20 21 Active Insulin Pump Cartridge (Omnipod Dash Insulin Pod) Cartridge 04/11/20 21 Active Irbesartan (AVAPRO) 300 mg tablet irbesartan 300 mg tablet 07/24/19 22 Active levothyroxine (SYNTHROID) 112 mcg tablet Synthroid 112 mcg tablet 02/14/20 21 Active linaCLOtide (Linzess) 145 mcg capsule Linzess 145 mcg capsule 07/22/19 21 Active montelukast (SINGULAIR) 10 mg tablet montelukast 10 mg tablet 03/30/20 21 Active prasterone, dhea, 50 mg Tablet DHEA 50 mg tablet Take 1 tablet every day by oral route. 05/01/20 19 Active semaglutide (Ozempic) 0.25 mg or 0.5 mg(2 mg/1.5 mL) Pen Injector Ozempic 0.25 mg or 0.5 mg (2 mg/1.5 mL) subcutaneous pen injector 07/24/19 Active simvastatin (ZOCOR) 20 mg tablet simvastatin 20 mg tablet 11/30/19 20 Active traMADoL (ULTRAM) 50 mg tablet tramadol 50 mg tablet Active vitamin B complex Tablet Sustained Release 07/24/19 Active Active Problems No known active problems Social History Tobacco Use Types Packs/Day Years Used Date Smoking Tobacco: Never Comments Unknown Sex and Gender Information Value Date Recorded Sex Assigned at Not on file Legal Sex Female 10:37 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 Gender Identity Not on file Sexual Orientation Not on file Last Filed Vital Signs Vital Sign Reading Time Taken Comments Blood Pressure 110/68 08/08/2021 9:47 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 Pulse 66 08/08/2021 9:47 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 Temperature 36.8 C (98.3 F) 08/08/2021 9:47 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 Respiratory Rate - - Oxygen Saturation 97% 08/08/2021 9:47 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 Inhaled Oxygen Concentration - - Weight 91.6 kg (202 lb) 08/08/2021 9:47 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 Height 152.4 cm (5') 08/08/2021 9:47 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 Body Mass Index 39.45 08/08/2021 9:47 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 Plan of Treatment Health Maintenance Due Date Last Done Comments DIABETES ANNUAL FOOT EXAM 1972 DIABETES ANNUAL RETINAL EXAM 1972 DIABETES HBA1C Q 6 MONTHS 1972 DIABETES MICROALBUMIN ANNUAL SCREEN 1972 LDL CHOLESTEROL ANNUAL 1972 DTAP/TDAP/TD VACCINES (1 - Tdap) 1973 PNEUMOCOCCAL VACCINE 50+ YEARS (1 of 2 - PCV) 04/07/19 73 BREAST CANCER SCREENING 1994 COLORECTAL SCREENING 1999 Colorectal Cancer Screening 1999 FIT-DNA Q 3 years 1999 FIT/FOBT Q 1 year 1999 Flex Sig/CT Colonography Q 5 years 1999 ZOSTER VACCINE (1 of 2) 2004 RSV VACCINE (60+ or ) (1 - Risk 60-74 years 1-dose series) 2014 OSTEOPOROSIS SCREENING 2019 INFLUENZA VACCINE (#1) [address] [facility] EPO Care Teams Tamping Machine Operator Road Forms Relationship Specialty Start Date End Date Mary Reeves MD [address] [place] [address] PCP - General Family Practice 08/08/21
== END 2025-01-21 15:01 | disposition home or self-care (01) ==
LOC: ANHIMG 15:03
PROVIDERS: PCP Family Medicine; Visit Provider Family Medicine
DX: Z12.31 Encounter for screening mammogram for malignant neoplasm of breast (principal)
CPT/HCPCS: 77063; 77067

== ENCOUNTER 2025-02-15 14:54 | Outpatient (CLI) | payer BC, SELFPAY ==
--- NOTE | ~2025-02-15 | MR_ITS ---
EXAMINATION: MR brain/brain stem wo/w con DATE: 02/15/2025 15:57 INDICATION: Unspecified disturbance of skin and placed TECHNIQUE: Magnetic resonance imaging (MRI) of the brain and brainstem was performed without and with 15 mL Multihance intravenous contrast. Sequences included sagittal and axial T1-weighted SE, axial d iffusion-weighted FS SE, axial T2*-weighted GRE, axial T2-weighted FLAIR, and axial T2-weighted FSE. Postcontrast axial and coronal T1-weighted SE was obtained. Apparent diffusion coefficient (ADC) maps were created. COMPARISON: None. FINDINGS: There are no areas of restricted diffusion to suggest acute infarction. No intracranial hemorrhage or abnormal intracranial mass lesion. There are scattered areas of nonspecific increased T2-weighted si gnal intensity in the cerebral white matter, predominantly involving the deep and periventricular whi te matter. There are no intraparenchymal signal abnormalities seen on the other pulse sequences. The ventricles are symmetric and normal in size. There are no abnormal extra-axial fluid collections. Jay w voids are seen in the cerebral arteries on the T2-weighted sequences consistent with their expected patency. Mild mucosal thickening the bilateral ethmoid sinuses. Visualized orbits and soft tissues a re unremarkable. There are no areas of abnormal enhancement on the post contrast images. IMPRESSION: 1. Normal aging brain. No acute intracranial process or abnormally enhancing brain lesions. Reviewed, dictated and finalized at location A. IMPRESSION: 1. Normal aging brain. No acute intracranial process or abnormally enhancing br ain lesions.
== END 2025-02-15 14:55 | disposition home or self-care (01) ==
LOC: MICIMG 14:55
PROVIDERS: PCP Family Medicine; Visit Provider Family Medicine
DX: R43.9 Unspecified disturbances of smell and taste (principal); R53.1 Weakness
CPT/HCPCS: 70553; A9577